=== PATIENT | male | born 1965 | race Caucasian/White ===

== ENCOUNTER 2016-03-22 10:46 | Emergency (ER) | payer MEDICAID, SELFPAY ==
[~2016-03-22 10:46] MED LIST: ALLO300T OR; AMBI12.52 PO; AMLO5TAB2 PO; CATA0.2T PO; CHLO25CA PO; CIPR250T3; CIPR500T3 PO; CIPR500T4 OR; COLA100C PO; FLAG500T OR; FLAG500T PO; FLUO20CA9 PO; FOLI1TAB2 PO; IBUP200T2 PO; LISI-538 PO; LISI-542 PO; LISI10TA4 PO; LOPR1TAB6 PO; METRCRM TOP; MULTCAP PO; OXAZ10CA PO; PANT40TA2 PO; PERCOCET PO; POTA20TA OR; SERT-138 PO; SERT-141 PO; SM I100T OR; THIA100TA PO; TRAZO50TA PO; VICO5TAB; VICO5TAB OR; VITA100T2 PO; VITMTA PO
[2016-03-22] MEDS ORDERED: LORazepam 2 MG/ML VIAL (J2060) As Ordered ONE (11:21)
[2016-03-22 11:37] LABS: BASO % 0.7 % (0.0-1.0); EOS # 0.1 K/mm3 (0.0-0.50); EOS % 2.3 % (0.0-3.0); LARGE UNSTAINED CELL # 0.2 K/mm3 (0.0-0.4); LARGE UNSTAINED CELL % 2.6 % (0.0-4.0); LYMPH # 1.6 K/mm3 (1.5-4.5); LYMPH % 25.7 % (24.0-44.0); MEAN CORPUSCULAR HEMOGLOBIN 28.7 pg (27.0-33.0); MEAN CORPUSCULAR HGB CONC 33.4 g/dl (32.0-36.5); MEAN CORPUSCULAR VOLUME 86.2 fl (80.0-96.0); MONO # 0.4 K/mm3 (0.0-0.8); MONO % 7.1 % (0.0-5.0); NEUTROPHILS # 3.6 K/mm3 (1.8-7.7); NEUTROPHILS % 61.7 % (36.0-66.0); PLATELET COUNT, AUTOMATED 219 k/mm3 (150-450); RED CELL DISTRIBUTION WIDTH 13.3 % (11.5-14.5); WHITE BLOOD COUNT 5.8 K/mm3 (4.0-10.0)
[2016-03-22 11:54] LABS: ALBUMIN 3.7 GM/DL (3.2-5.2); ALBUMIN/GLOBULIN RATIO 0.93 (1.00-1.93); ALKALINE PHOSPHATASE 72 U/L (45-117); ALT/SGPT 33 U/L (12-78); ANION GAP 9 MEQ/L (8-16); AST/SGOT 22 U/L (15-37); BILIRUBIN,DIRECT < 0.1 MG/DL (0.0-0.2); BILIRUBIN,TOTAL 0.3 MG/DL (0.2-1.0); BLOOD UREA NITROGEN 13 MG/DL (7-18); CALCIUM LEVEL 8.3 MG/DL (8.5-10.1); CARBON DIOXIDE LEVEL 26 MEQ/L (21-32); CHLORIDE LEVEL 107 MEQ/L (98-107); CREATININE FOR GFR 0.68 MG/DL (0.70-1.30); GLOMERULAR FILTRATION RATE > 60.0 (>56); GLUCOSE, FASTING 101 MG/DL (70-105); POTASSIUM SERUM 3.8 MEQ/L (3.5-5.1); SODIUM LEVEL 142 MEQ/L (136-145); TOTAL PROTEIN 7.7 GM/DL (6.4-8.2)
--- NOTE | 2016-03-22 14:04 | EDDOCDS ---
Nurse's Notes [facility] Name: Efraín Butler Age: 50 yrs Sex: Male : 1965 Arrival Date: 03/22/2016 Time: 10:46 Bed 5 Private MD: Jeffrey Martin A. Diagnosis: Alcohol abuse counseling and surveillance;Alcohol abuse with intoxication Presentation: 03/22 10:53 Presenting complaint: Patient states: stressful day yesterday, confusion while at work jjr earlier today, found house phone in coat pocket while signing in to ED. Adult Sepsis Screening: The patient does not have new or worsening altered mentation. Patient's respiratory rate is less than 22. Systolic blood pressure is greater than 100. Patient has a qSOFA score of 0- Negative Sepsis Screen. Suicide/Homicide risk assessment- the patient denies having any suicidal and/or homicidal ideations and does not present with any other emotional, behavioral or mental health complaints. Status: Patient is not a student services dean or dependent. Transition of care: patient was not received from another setting of care. 10:53 Acuity: GABO Level 3 jjr 10:53 Method Of Arrival: Walkin/Carried/Asstd jjr Triage Assessment: 11:02 General: Appears in no apparent distress. HIV screening NA for this visit Offered jjr previously. Neurological: Reports no additional symptoms. Historical: - Allergies: no known allergies; - Home Meds: 1. lisinopril 20 mg Oral tab 1 tab once daily (Last dose: 03/22/2016) 2. Norvasc 5 mg Oral tab 1 tab once daily - PMHx: Hypertension; Kidney stones; Diverticulitis; Depression; TIA; - PSHx: Knee surgery- Left; Knee surgery- Right; kidney stent; skin tumors in ears; - Social history: No barriers to communication noted, The patient speaks fluent Lao, Smoking status: Patient states was never smoker of tobacco. - Family history: Not pertinent. - : The pt / caregiver states he / she is not on anticoagulants. Home medication list is obtained from the patient. - Exposure Risk Screening:: None identified. Screenin:41 Screening information is obtained from the patient. Fall risk: No risks identified. dls Assistance ADL's: requires no assistance with activities of daily living. Abuse/DV Screen: The patient / caregiver reports he/she is: not in a situation that causes fear, pain or injury. Nutritional screening: No deficits noted. Advance Directives: Currently, there is no health care proxy. There is no active DNR order. There is no living will. There is no Power of Compression Molding Machine Operator. Advance directive information has not previously been placed in an [facility] medical record. home support is adequate. Assessment: 11:39 General: Appears distressed, obese, uncomfortable, well nourished, well groomed, dls Behavior is anxious, Smells of alcohol. Pain: Denies pain. Neurological: Level of Consciousness is awake, alert, Oriented to person, place, time, Refining Still Operator are equal bilaterally Moves all extremities. Speech is normal, Facial symmetry appears normal, Pupils are PERRLA, EENT: No deficits noted. Cardiovascular: No deficits noted. Respiratory: No deficits noted. Airway is patent Respiratory effort is even, unlabored, Respiratory pattern is regular, symmetrical, Breath sounds are clear bilaterally. GI: No deficits noted. Abdomen is obese, Bowel sounds present X 4 quads. Abd is soft and non tender X 4 quads. Reports nausea. : No deficits noted. Derm: No deficits noted. Musculoskeletal: No deficits noted. 11:43 General: After IV insertion pt became nauseated no emesis states"room is spinning" pt dls to CT scan via stretcher accompanied by nurse pt remains alert and oriented medicated pt IV for anxiety pts states "pt has hx of ETOH withdrawal.. 12:48 General: Pt sleeping off and on vital signs remain stable awaiting test results.. dls 12:59 General: dope maintenance worker in to speak with pt.. dls Social Work Consult: 13:41 Social Work Note: PSA met with pt at bedside. Pt reports he started to drink 2 days ago cs after 90 days of sobriety, he was lonely, was suppose to work yesterday at [employer], but his friend Federica refused to drive him to work, because of his drinking. Pt reports he stopped drinking yesterday morning, yet his etoh was .11 at 11:08 am. Pt reports he has 39 years of drinking, 6 DWI, went to halfway, lost his family, many jobs, many friends, and a to etoh issues. Pt reports he has been working with a [employer] on [employer] in [place], no sponsor. Pt has no history on psyche admissions, or attempts to kill self, sees a counselor at [facility], has missed the past 2 appointments due to work, and transportation is an issue, per pt. Pt also reports no suicidal thoughts, or wishes to kill anyone, no +AH, just feels bad he started to drink again. referrals given and surveillance managercosmetic manager with phone numbers for him to call in am on Wednesday. Pt and friend Federica will be transported back to his home. Support extended. Vital Signs: 10:47 BP 171 / 94; Pulse 82; Resp 19; Temp 98.5(O); Pulse Ox 96% on R/A; Weight 99.79 kg (R); elp Height 5 ft. 9 in. (175.26 cm) (R); 11:18 BP 150 / 84 (auto/); dls 11:19 Pulse 82 MON; Pulse Ox 92% ; dls 11:19 BP 159 / 102; Pulse 93; Resp 20; Temp 97.4(O); Pulse Ox 96% on R/A; Pain 0/10; dls 10:47 Body Mass Index 32.49 (99.79 kg, 175.26 cm) [facility] Vitals: 10:47 Log In Time: March 22, 2016 at 10:45. elp 10:48 RN notified that patient meets Red Flag criteria. [facility] ED Course: 10:47 Patient visited by Aida Fritz PCA. elp 10:47 Jeffrey Martin is Private Physician. elp 10:47 Patient moved to Waiting elp 10:49 Key Villafana, RN is Primary Nurse. elp 10:49 Patient moved to 5 elp 10:51 Nevaeh Vizcaino MD is Attending Physician. ml 10:51 Patient visited by Nevaeh Vizcaino MD. ml 10:55 Triage Initiated jjr 11:12 CBC with Diff Sent. dls 11:12 Partial Thromboplastin Time Sent. dls 11:13 Prothrombin Time Profile\\E\\INR Sent. dls 11:13 Type & Screen Sent. dls 11:13 Acetaminophen Level Sent. dls 11:13 Basic Metabolic Profile Sent. dls 11:13 Complete Blood Count Sent. dls 11:13 Ethyl Alcohol (ethanol) Sent. dls 11:13 Liver Profile Sent. dls 11:14 Salicylate Level Sent. dls 11:14 Thyroid Stimulating Hormone Sent. dls 11:30 Patient visited by Yohan Hubbard PCA. jrd 11:30 EKG done. (by ED staff). Reviewed by Nevaeh Vizcaino MD. jrd 11:41 The patient / caregiver is instructed regarding the plan of care and ED course. dls Accompanied by Significant Other, Patient has correct armband on for positive identification. Placed in gown. Bed in low position. Call light in reach. Side rails up X2. surveillance monitor on. Pulse ox on. NIBP on. 11:41 Inserted saline lock: 20 gauge in left hand and blood collected. The patient tolerated dls the procedure well. No procedures done that require assistance. 11:50 [facility] Payment Agreement was scanned into [employer] and attached to record. mpb 12:47 Patient visited by Key Villafana RN. dls 13:50 Jeffrey Martin is Referral Physician. ml 13:57 PSA Outpatient Referrals was scanned into [employer] and attached to record. ml4 14:02 Discontinued IV lock intact, bleeding controlled, pressure dressing applied, No dls redness/swelling at site. Administered Medications: 11:18 Drug: NS 0.9% 1000 ml [sodium chloride 0.9 % intravenous solution] Route: IV; Rate: dls bolus; Site: left hand; 11:25 Drug: LORazepam 1 mg [lorazepam 2 mg/mL injection solution (0.5 mL)] Route: IVP; Site: dls left hand; Order Results: Lab Order: Acetaminophen Level; SPEC'M 03/22/16 11:08 Test: ACETAMINOPHEN LEVEL; Value: < 2.0; Range: 10.0-30.0; Abnormal: Below low normal; Units: UG/ML; Status: F Lab Order: Basic Metabolic Profile; SPEC'M 03/22/16 11:08 Test: GLUCOSE, FASTING; Value: 101; Range: 70-105; Units: MG/DL; Status: F Test: BLOOD UREA NITROGEN; Value: 13; Range: 7-18; Units: MG/DL; Status: F Test: CREATININE FOR GFR; Value: 0.68; Range: 0.70-1.30; Abnormal: Below low normal; Units: MG/DL; Status: F Test: GLOMERULAR FILTRATION RATE; Value: > 60.0; Range: >56; Status: F Test: SODIUM LEVEL; Value: 142; Range: 136-145; Units: MEQ/L; Status: F Test: POTASSIUM SERUM; Value: 3.8; Range: 3.5-5.1; Units: MEQ/L; Status: F Test: CHLORIDE LEVEL; Value: 107; Range: 98-107; Units: MEQ/L; Status: F Test: CARBON DIOXIDE LEVEL; Value: 26; Range: 21-32; Units: MEQ/L; Status: F Test: ANION GAP; Value: 9; Range: 8-16; Units: MEQ/L; Status: F Test: CALCIUM LEVEL; Value: 8.3; Range: 8.5-10.1; Abnormal: Below low normal; Units: MG/DL; Status: F Test Note: ; Units are mL/min/1.73 m2 Chronic Kidney Disease Staging per NKF: Stage I & II GFR >=60 Normal to Mildly Decreased Stage III GFR 30-59 Moderately Decreased Stage IV GFR 15-29 Severely Decreased Stage V GFR <15 Very Little GFR Left ESRD GFR <15 on STONEMASON SUPERVISOR Lab Order: Ethyl Alcohol (ethanol); SPEC'M 03/22/16 11:08 Test: ETHYL ALCOHOL (ETHANOL); Value: 0.111; Range: 0.000-0.010; Abnormal: Above high normal; Units: %; Status: F Lab Order: Liver Profile; SPECM 03/22/16 11:08 Test: AST/SGOT; Value: 22; Range: 15-37; Units: U/L; Status: F Test: ALT/SGPT; Value: 33; Range: 12-78; Units: U/L; Status: F Test: ALKALINE PHOSPHATASE; Value: 72; Range: 45-117; Units: U/L; Status: F Test: BILIRUBIN,TOTAL; Value: 0.3; Range: 0.2-1.0; Units: MG/DL; Status: F Test: BILIRUBIN,DIRECT; Value: < 0.1; Range: 0.0-0.2; Units: MG/DL; Status: F Test: TOTAL PROTEIN; Value: 7.7; Range: 6.4-8.2; Units: GM/DL; Status: F Test: ALBUMIN; Value: 3.7; Range: 3.2-5.2; Units: GM/DL; Status: F Test: ALBUMIN/GLOBULIN RATIO; Value: 0.93; Range: 1.00-1.93; Abnormal: Below low normal; Status: F Lab Order: Salicylate Level; SPEC03/22/16 11:08 Test: SALICYLATE LEVEL; Value: < 1.7; Range: 5.0-30.0; Abnormal: Below low normal; Units: MG/DL; Status: F Lab Order: Thyroid Stimulating Hormone; 03/22/16 11:08 Test: THYROID STIMULATING HORMONE; Value: 1.370; Range: 0.358-3.740; Units: uIU/ML; Status: F Lab Order: CBC with Diff; 03/22/16 11:08 Test: WHITE BLOOD COUNT; Value: 5.8; Range: 4.0-10.0; Units: K/mm3; Status: F Test: RED BLOOD COUNT; Value: 4.87; Range: 4.30-6.10; Units: M/mm3; Status: F Test: HEMOGLOBIN; Value: 14.0; Range: 14.0-18.0; Units: g/dl; Status: F Test: HEMATOCRIT; Value: 42.0; Range: 42.0-52.0; Units: %; Status: F Test: MEAN CORPUSCULAR VOLUME; Value: 86.2; Range: 80.0-96.0; Units: fl; Status: F Test: MEAN CORPUSCULAR HEMOGLOBIN; Value: 28.7; Range: 27.0-33.0; Units: pg; Status: F Test: MEAN CORPUSCULAR HGB CONC; Value: 33.4; Range: 32.0-36.5; Units: g/dl; Status: F Test: RED CELL DISTRIBUTION WIDTH; Value: 13.3; Range: 11.5-14.5; Units: %; Status: F Test: PLATELET COUNT, AUTOMATED; Value: 219; Range: 150-450; Units: k/mm3; Status: F Test: NEUTROPHILS %; Value: 61.7; Range: 36.0-66.0; Units: %; Status: F Test: LYMPH %; Value: 25.7; Range: 24.0-44.0; Units: %; Status: F Test: MONO %; Value: 7.1; Range: 0.0-5.0; Abnormal: Above high normal; Units: %; Status: F Test: EOS %; Value: 2.3; Range: 0.0-3.0; Units: %; Status: F Test: BASO %; Value: 0.7; Range: 0.0-1.0; Units: %; Status: F Test: LARGE UNSTAINED CELL %; Value: 2.6; Range: 0.0-4.0; Units: %; Status: F Test: NEUTROPHILS #; Value: 3.6; Range: 1.8-7.7; Units: K/mm3; Status: F Test: LYMPH #; Value: 1.6; Range: 1.5-4.5; Units: K/mm3; Status: F Test: MONO #; Value: 0.4; Range: 0.0-0.8; Units: K/mm3; Status: F Test: EOS #; Value: 0.1; Range: 0.0-0.50; Units: K/mm3; Status: F Test: BASO #; Value: 0.0; Range: 0.0-0.2; Units: K/mm3; Status: F Test: LARGE UNSTAINED CELL #; Value: 0.2; Range: 0.0-0.4; Units: K/mm3; Status: F Lab Order: Partial Thromboplastin Time; SPEC'M 03/22/16 11:08 Test: PARTIAL THROMBOPLASTIN TIME; Value: 25.7; Range: 26.6-37.1; Abnormal: Below low normal; Units: SECONDS; Status: F Lab Order: Prothrombin Time Profile\\E\\INR; SPEC'M 03/22/16 11:08 Test: PROTHROMBIN TIME; Value: 13.3; Range: 12.3-14.5; Units: SECONDS; Status: F Test: INR; Value: 1.00; Status: F Test Note: ; THERAPUTIC HUMAN INR VALUES INDICATIONS NORMAL RANGES PROPHYLAXIS/TREATMENT OF: VENOUS THROMBOSIS 2.0-3.0 PULMONARY EMBOLISM 2.0-3.0 PREVENTION OF SYSTEMIC EMBOLISM FROM: TISSUE HEART VALVES 2.0-3.0 ACUTE MYOCARDIAL INFARCTION 2.0-3.0 VALVULAR HEART DISEASE 2.0-3.0 ATRIAL FIBRILLATION 2.0-3.0 MECHANICAL VALVES(HIGH RISK) 2.5-3.5 RECURRENT MYOCARDIAL INFARCTION 2.5-3.5 Lab Order: Type & Screen; SPEC'M 03/22/16 11:08 Test: BLOOD TYPE; Value: A POS; Status: F Test: AB SCREEN (INDIRECT JEREMY)VIS; Value: NEGATIVE; Status: F Lab Order: Fingerstick Blood Sugar; SPEC'M 03/22/16 11:51 Test: BEDSIDE GLUCOSE; Value: 100; Range: 70-105; Units: MG/DL; Status: F Outcome: 13:50 Discharge ordered by Provider. 14:02 Discharge Assessment: Patient awake, alert and oriented x 3. No cognitive and/or dls functional deficits noted. Patient verbalized understanding of disposition instructions. patient administered narcotics - no. The following High Risk Discharge criteria are identified: None. Discharged to home ambulatory. Condition: stable Condition: improved. Discharge instructions given to patient, Instructed on discharge instructions, follow up and referral plans. Demonstrated understanding of instructions, Pt was receptive of discharge instructions/ teaching. CT Study completed. Property sent home with patient. 14:03 Patient left the ED. dls Signatures: Nevaeh Vizcaino MD MD ml Scott, Debra, RN RN dls Lai Mao, PSA PSA cs Francia Perdomo, PSA PSA ml4 Eli Sosa, RN RN Aida Smith, MICROBIOLOGY TEACHER MICROBIOLOGY TEACHER Yohan Otto, MICROBIOLOGY TEACHER MICROBIOLOGY TEACHER Efraín Tijerina, Reg Reg mpb MARYJO
--- NOTE | 2016-03-22 14:04 | EDDOCDS ---
Physician Documentation [facility] Name: Efraín Butler Age: 50 yrs Sex: Male : 1965 Arrival Date: 03/22/2016 Time: 10:46 Bed 5 Private MD: Jeffrey Martin A. Disposition: 03/22/16 13:50 Discharged to Home/Self Care. Impression: Alcohol abuse counseling and surveillance, Alcohol abuse with intoxication. - Condition is Stable. - Discharge Instructions: Alcohol Intoxication, Alcohol Abuse and Nutrition. - Medication Reconciliation, Local Pharmacy Hours form. - Follow up: Jeffrey Martin; When: 1 - 2 days. - Problem is an ongoing problem. - Symptoms have improved. - Notes: return if worsening symptoms. follow steps discussed with Lai. Follow up with Dr Martin Historical: - Allergies: no known allergies; - Home Meds: 1. lisinopril 20 mg Oral tab 1 tab once daily (Last dose: 03/22/2016) 2. Norvasc 5 mg Oral tab 1 tab once daily - PMHx: Hypertension; Kidney stones; Diverticulitis; Depression; TIA; - PSHx: Knee surgery- Left; Knee surgery- Right; kidney stent; skin tumors in ears; - Social history: No barriers to communication noted, The patient speaks fluent Trinidadian, Smoking status: Patient states was never smoker of tobacco. - Family history: Not pertinent. - : The pt / caregiver states he / she is not on anticoagulants. Home medication list is obtained from the patient. - Exposure Risk Screening:: None identified. Vital Signs: 03/22 10:47 BP 171 / 94; Pulse 82; Resp 19; Temp 98.5(O); Pulse Ox 96% on R/A; Weight 99.79 kg / elp 220 lbs (R); Height 5 ft. 9 in. (175.26 cm) (R); 11:18 BP 150 / 84 (auto/); dls 11:19 Pulse 82 MON; Pulse Ox 92% ; dls 11:19 BP 159 / 102; Pulse 93; Resp 20; Temp 97.4(O); Pulse Ox 96% on R/A; Pain 0/10; dls 10:47 Body Mass Index 32.49 (99.79 kg, 175.26 cm) elp MDM: 11:00 Consult PFS/PSA/Cigar Packer And Grader ordered. ml 11:00 Consult PFS/PSA/Cigar Packer And Grader: Patient's case requires discussion with on-call ml Psychiatrist ordered. 11:00 PSA/PFS to call Nursing Fire Operations Forester, to enter patient data on [place] Safe Act if patient ml involuntarily admitted or transferred for SI or HI ordered. 11:00 Video Control Operator/Pulse Ox/q 15 min VS ordered. ml 11:00 Confirm accurate psychiatric medication list and times of last dosage ordered. ml 11:00 Detain Pt Until Medically/PFS Cleared ordered. ml 11:00 IV Saline Lock ordered. ml 11:00 NS 0.9% 1000 ml IV at bolus once ordered. ml 11:00 LORazepam 1 mg IVP once ordered. ml 11:00 RN interventions must not delay CT ordered. ml 11:00 Accucheck ordered. ml 11:00 Rhythm Strip to chart ordered. ml 11:00 Stroke assessment pack to bedside ordered. ml 11:01 Acetaminophen Level Ordered. EDMS 11:01 Basic Metabolic Profile Ordered. EDMS 11:01 Complete Blood Count Ordered. EDMS 11:01 Ethyl Alcohol (ethanol) Ordered. EDMS 11:01 Liver Profile Ordered. EDMS 11:01 Salicylate Level Ordered. EDMS 11:01 Thyroid Stimulating Hormone Ordered. EDMS 11:01 CBC with Diff Ordered. EDMS 11:01 Partial Thromboplastin Time Ordered. EDMS 11:01 Prothrombin Time Profile\E\INR Ordered. EDMS 11:01 Type & Screen Ordered. EDMS 11:02 CT Head Without Contrast Ordered. EDMS 11:03 Chest, 1 View Ordered. EDMS 11:03 ECG WITH READING ER PHYS+CARDIAG ordered. EDMS 11:42 Financial registration complete. mpb 11:50 [facility] Payment Agreement was scanned into [employer] and attached to record. mpb 11:59 Fingerstick Blood Sugar Ordered. EDMS 12:07 Acetaminophen Level Reviewed. ml 12:07 Basic Metabolic Profile Reviewed. ml 12:07 Ethyl Alcohol (ethanol) Reviewed. ml 12:07 Liver Profile Reviewed. ml 12:07 Salicylate Level Reviewed. ml 12:07 CBC with Diff Reviewed. ml 12:07 Partial Thromboplastin Time Reviewed. ml 12:07 Thyroid Stimulating Hormone Reviewed. ml 12:07 Prothrombin Time Profile\E\INR Reviewed. ml 12:07 Fingerstick Blood Sugar Reviewed. ml 12:40 Type & Screen Reviewed. ml 12:41 Consult PFS/PSA/Cigar Packer And Grader ordered. ml 12:58 Consult PFS/PSA/Cigar Packer And Grader complete. dls 12:59 Consult PFS/PSA/Cigar Packer And Grader complete. dls 12:59 Consult PFS/PSA/Cigar Packer And Grader: Patient's case requires discussion with on-call dls Psychiatrist complete. 12:59 PSA/PFS to call Nursing Fire Operations Forester, to enter patient data [place] Safe [place] if patient dls involuntarily admitted or transferred for SI or HI complete. 13:57 PSA Outpatient Referrals was scanned into [employer] and attached to record. ml4 Administered Medications: 11:18 Drug: NS 0.9% 1000 ml [sodium chloride 0.9 % intravenous solution] Route: IV; Rate: dls bolus; Site: left hand; 11:25 Drug: LORazepam 1 mg [lorazepam 2 mg/mL injection solution (0.5 mL)] Route: IVP; Site: dls left hand; Signatures: Dispatcher [employer] Nevaeh Shane MD MD ml Key Villafana RN RN dls Francia Perdomo, PSA PSA ml4 Eli Sosa, RN RN jacquir Efraín Boateng, Anuel Reg mpb The chart was reviewed and I authenticate all verbal orders and agree with the evaluation and treatment provided.Corrections: (The following items were deleted from the chart) 11:01 11:00 Consult [facility]: Telemedicine Stroke Attending ordered. ml ml 12:00 11:00 Neuro VS q 15 Minutes ordered. ml dls 12:00 11:00 Patient must be on CC stretcher and weighed via bed scale ordered. ml dls 12:45 11:01 DRUG EVAL TOXICOLOGY ED ONLY+LAB ordered. EDMS EDMS Attachments: 11:50 [facility] Payment Agreement mpb MTDD
--- NOTE | 2016-03-22 14:56 | REP ---
CT BRAIN WITHOUT CONTRAST: 03/22/2016. Clinical history: Confusion, altered mental status. Comparison: 08/25/2015, 08/11/2013. Findings: Noncontrast soft tissue and bone windows reviewed. Ventricles are midline symmetric and without dilatation or displacement. Third and fourth ventricles unremarkable. Basal ganglia are symmetric and normal. López white junction differentiation is well maintained. Cortical stripe is preserved. There is no vascular territory infarct, hemorrhage, mass, mass effect or edema. Brainstem and cerebellum remain grossly intact. The basal cisterns were intact. Mastoids show minimal aeration bilaterally on a developmental basis but were clear. The visualized sinuses, skull base and calvarium were unremarkable. Impression: 1. Normal noncontrast CT brain. No intracranial hemorrhage, acute infarct, mass or edema. 2. Skull base, calvarium, sinuses and mastoids clear. Signed by Aren Paul MD 03/22/2016 07:28 P
--- NOTE | 2016-03-22 14:57 | REP ---
AP PORTABLE CHEST: 03/22/2016. Clinical history: Confusion, altered mental status. Comparison: 08/25/2015, 08/11/2013. Findings: Lordotic AP portable technique. There is eventration and elevation of the right diaphragm exaggerated by the lordotic projection. Heart size mildly prominent and with left ventricular configuration also exaggerated by lordotic portable projection. No gross infiltrate or effusion. Some mild venous hypertension may be present but there is no pulmonary edema or acute infiltrate. The aorta is mildly tortuous but normal for age. Airway intact. Bones unchanged. No free air. Impression: 1. Lordotic projection limits evaluation of the posterior and lower lung zones. Some pulmonary venous hypertension without pulmonary edema, dense consolidation or definite effusion. Signed by Aren Paul MD 03/22/2016 07:28 P
--- NOTE | 2016-03-22 19:33 | ECGEPIP ---
Stationary ECG Study [facility] - ED Test Date: 2016-03-22 Pat Name: NAMAN HARPER Department: Room: - Gender: M Security Compliance Engineer: rafael : 1965 Requested By: Nevaeh Vizcaino Order Number: [id number] Reading MD: Nevaeh Vizcaino Measurements Intervals [place] Rate: 83 P: 31 IL: 147 QRS: 16 QRSD: 89 T: 64 QT: 375 QTc: 442 Interpretive Statements SINUS RHYTHM POSSIBLE INFERIOR MYOCARDIAL INFARCTION, PROBABLY OLD NONSPECIFIC ST T WAVE CHANGES CW 12/25/15 - RATE INCREASED Electronically Signed On 03-22-2016 19:33:23 EST by Nevaeh Vizcaino
--- NOTE | 2016-03-24 15:05 | EDDOCDS ---
Physician Documentation [facility] Name: Efraín Butler Age: 50 yrs Sex: Male : 1965 Arrival Date: 03/22/2016 Time: 10:46 Bed 5 Private MD: Jeffrey Martin A. Disposition: 03/22/16 13:50 Discharged to Home/Self Care. Impression: Alcohol abuse counseling and surveillance, Alcohol abuse with intoxication. - Condition is Stable. - Discharge Instructions: Alcohol Intoxication, Alcohol Abuse and Nutrition. - Medication Reconciliation, Local Pharmacy Hours form. - Follow up: Jeffrey Martin; When: 1 - 2 days. - Problem is an ongoing problem. - Symptoms have improved. - Notes: return if worsening symptoms. follow steps discussed with Lai. Follow up with Dr Martin Historical: - Allergies: no known allergies; - Home Meds: 1. lisinopril 20 mg Oral tab 1 tab once daily (Last dose: 03/22/2016) 2. Norvasc 5 mg Oral tab 1 tab once daily - PMHx: Hypertension; Kidney stones; Diverticulitis; Depression; TIA; - PSHx: Knee surgery- Left; Knee surgery- Right; kidney stent; skin tumors in ears; - Social history: No barriers to communication noted, The patient speaks fluent Citizen Of [place], Smoking status: Patient states was never smoker of tobacco. - Family history: Not pertinent. - : The pt / caregiver states he / she is not on anticoagulants. Home medication list is obtained from the patient. - Exposure Risk Screening:: None identified. Vital Signs: 03/22 10:47 BP 171 / 94; Pulse 82; Resp 19; Temp 98.5(O); Pulse Ox 96% on R/A; Weight 99.79 kg / elp 220 lbs (R); Height 5 ft. 9 in. (175.26 cm) (R); 11:18 BP 150 / 84 (auto/); dls 11:19 Pulse 82 MON; Pulse Ox 92% ; dls 11:19 BP 159 / 102; Pulse 93; Resp 20; Temp 97.4(O); Pulse Ox 96% on R/A; Pain 0/10; dls 10:47 Body Mass Index 32.49 (99.79 kg, 175.26 cm) elp MDM: 11:00 Consult PFS/PSA/Senior Clinical Data Coordinator ordered. ml 11:00 Consult PFS/PSA/Senior Clinical Data Coordinator: Patient's case requires discussion with on-call ml Psychiatrist ordered. 11:00 PSA/PFS to call Nursing Plug Making Operator, to enter patient data on [place] Safe [place] if patient ml involuntarily admitted or transferred for SI or HI ordered. 11:00 Clinic Licensed Practical Nurse/Pulse Ox/q 15 min VS ordered. ml 11:00 Confirm accurate psychiatric medication list and times of last dosage ordered. ml 11:00 Detain Pt Until Medically/PFS Cleared ordered. ml 11:00 IV Saline Lock ordered. ml 11:00 NS 0.9% 1000 ml IV at bolus once ordered. ml 11:00 LORazepam 1 mg IVP once ordered. ml 11:00 RN interventions must not delay CT ordered. ml 11:00 Accucheck ordered. ml 11:00 Rhythm Strip to chart ordered. ml 11:00 Stroke assessment pack to bedside ordered. ml 11:01 Acetaminophen Level Ordered. EDMS 11:01 Basic Metabolic Profile Ordered. EDMS 11:01 Complete Blood Count Ordered. EDMS 11:01 Ethyl Alcohol (ethanol) Ordered. EDMS 11:01 Liver Profile Ordered. EDMS 11:01 Salicylate Level Ordered. EDMS 11:01 Thyroid Stimulating Hormone Ordered. EDMS 11:01 CBC with Diff Ordered. EDMS 11:01 Partial Thromboplastin Time Ordered. EDMS 11:01 Prothrombin Time Profile\E\INR Ordered. EDMS 11:01 Type & Screen Ordered. EDMS 11:02 CT Head Without Contrast Ordered. EDMS 11:03 Chest, 1 View Ordered. EDMS 11:03 ECG WITH READING ER PHYS+CARDIAG ordered. EDMS 11:42 Financial registration complete. mpb 11:50 [facility] Payment Agreement was scanned into [employer] and attached to record. mpb 11:59 Fingerstick Blood Sugar Ordered. EDMS 12:07 Acetaminophen Level Reviewed. ml 12:07 Basic Metabolic Profile Reviewed. ml 12:07 Ethyl Alcohol (ethanol) Reviewed. ml 12:07 Liver Profile Reviewed. ml 12:07 Salicylate Level Reviewed. ml 12:07 CBC with Diff Reviewed. ml 12:07 Partial Thromboplastin Time Reviewed. ml 12:07 Thyroid Stimulating Hormone Reviewed. ml 12:07 Prothrombin Time Profile\E\INR Reviewed. ml 12:07 Fingerstick Blood Sugar Reviewed. ml 12:40 Type & Screen Reviewed. ml 12:41 Consult PFS/PSA/Senior Clinical Data Coordinator ordered. ml 12:58 Consult PFS/PSA/Senior Clinical Data Coordinator complete. dls 12:59 Consult PFS/PSA/Senior Clinical Data Coordinator complete. dls 12:59 Consult PFS/PSA/Senior Clinical Data Coordinator: Patient's case requires discussion with on-call dls Psychiatrist complete. 12:59 PSA/PFS to call Nursing Plug Making Operator, to enter patient data [place] Safe [place] if patient dls involuntarily admitted or transferred for SI or HI complete. 13:57 PSA Outpatient Referrals was scanned into [employer] and attached to record. ml4 18:28 T-Sheet-- Draft Copy was scanned into [employer] and attached to record. r 03/23 11:05 ECG/EKG was scanned into [employer] and attached to record. gb 11:06 Other: STROKE SCALE was scanned into [employer] and attached to record. gb Administered Medications: 03/22 11:18 Drug: NS 0.9% 1000 ml [sodium chloride 0.9 % intravenous solution] Route: IV; Rate: dls bolus; Site: left hand; 11:25 Drug: LORazepam 1 mg [lorazepam 2 mg/mL injection solution (0.5 mL)] Route: IVP; Site: dls left hand; Signatures: Dispatcher [employer] EDUT Nevaeh Vizcaino MD MD ml Scott, Debra RN RN dls Amy Montes, Reg Reg gb Francia Perdomo, PSA PSA ml4 Eli Sosa RN RN jjr Briggs, Michael, Reg Reg mpb Nuha Vera The chart was reviewed and I authenticate all verbal orders and agree with the evaluation and treatment provided.Corrections: (The following items were deleted from the chart) 11:01 11:[address] [facility]: Telemedicine Stroke Attending ordered. ml ml 12:00 11:00 Neuro VS q 15 Minutes ordered. ml dls 12:00 11:00 Patient must be on CC stretcher and weighed via bed scale ordered. ml dls 12:45 11:01 DRUG EVAL TOXICOLOGY ED ONLY+LAB ordered. EDMS EDMS Attachments: 11:50 [facility] Payment Agreement mpb 18:28 T-Sheet-- Draft Copy [facility] 03/23 11:05 ECG/EKG gb Chart Complete MTDD
--- NOTE | 2016-03-24 15:05 | EDDOCDS ---
Nurse's Notes [facility] Name: Efraín Butler Age: 50 yrs Sex: Male : 1965 Arrival Date: 03/22/2016 Time: 10:46 Bed 5 Private MD: Jeffrey Martin A. Diagnosis: Alcohol abuse counseling and surveillance;Alcohol abuse with intoxication Presentation: 03/22 10:53 Presenting complaint: Patient states: stressful day yesterday, confusion while at work jjr earlier today, found house phone in coat pocket while signing in to ED. Adult Sepsis Screening: The patient does not have new or worsening altered mentation. Patient's respiratory rate is less than 22. Systolic blood pressure is greater than 100. Patient has a qSOFA score of 0- Negative Sepsis Screen. Suicide/Homicide risk assessment- the patient denies having any suicidal and/or homicidal ideations and does not present with any other emotional, behavioral or mental health complaints. Status: Patient is not a social service coordinator or dependent. Transition of care: patient was not received from another setting of care. 10:53 Acuity: GABO Level 3 jjr 10:53 Method Of Arrival: Walkin/Carried/Asstd jjr Triage Assessment: 11:02 General: Appears in no apparent distress. HIV screening NA for this visit Offered jjr previously. Neurological: Reports no additional symptoms. Historical: - Allergies: no known allergies; - Home Meds: 1. lisinopril 20 mg Oral tab 1 tab once daily (Last dose: 03/22/2016) 2. Norvasc 5 mg Oral tab 1 tab once daily - PMHx: Hypertension; Kidney stones; Diverticulitis; Depression; TIA; - PSHx: Knee surgery- Left; Knee surgery- Right; kidney stent; skin tumors in ears; - Social history: No barriers to communication noted, The patient speaks fluent Urdu, Smoking status: Patient states was never smoker of tobacco. - Family history: Not pertinent. - : The pt / caregiver states he / she is not on anticoagulants. Home medication list is obtained from the patient. - Exposure Risk Screening:: None identified. Screenin:41 Screening information is obtained from the patient. Fall risk: No risks identified. dls Assistance ADL's: requires no assistance with activities of daily living. Abuse/DV Screen: The patient / caregiver reports he/she is: not in a situation that causes fear, pain or injury. Nutritional screening: No deficits noted. Advance Directives: Currently, there is no health care proxy. There is no active DNR order. There is no living will. There is no Power of Technology Manager. Advance directive information has not previously been placed in an [facility] medical record. home support is adequate. Assessment: 11:39 General: Appears distressed, obese, uncomfortable, well nourished, well groomed, dls Behavior is anxious, Smells of alcohol. Pain: Denies pain. Neurological: Level of Consciousness is awake, alert, Oriented to person, place, time, Doctor Of Naturopathic Medicine are equal bilaterally Moves all extremities. Speech is normal, Facial symmetry appears normal, Pupils are PERRLA, EENT: No deficits noted. Cardiovascular: No deficits noted. Respiratory: No deficits noted. Airway is patent Respiratory effort is even, unlabored, Respiratory pattern is regular, symmetrical, Breath sounds are clear bilaterally. GI: No deficits noted. Abdomen is obese, Bowel sounds present X 4 quads. Abd is soft and non tender X 4 quads. Reports nausea. : No deficits noted. Derm: No deficits noted. Musculoskeletal: No deficits noted. 11:43 General: After IV insertion pt became nauseated no emesis states"room is spinning" pt dls to CT scan via stretcher accompanied by nurse pt remains alert and oriented medicated pt IV for anxiety pts states "pt has hx of ETOH withdrawal.. 12:48 General: Pt sleeping off and on vital signs remain stable awaiting test results.. dls 12:59 General: bog worker in to speak with pt.. dls Social Work Consult: 13:41 Social Work Note: PSA met with pt at bedside. Pt reports he started to drink 2 days ago cs after 90 days of sobriety, he was lonely, was suppose to work yesterday at [employer], but his friend Federica refused to drive him to work, because of his drinking. Pt reports he stopped drinking yesterday morning, yet his etoh was .11 at 11:08 am. Pt reports he has 39 years of drinking, 6 DWI, went to intermediate, lost his family, many jobs, many friends, and a to etoh issues. Pt reports he has been working with a [employer] on [employer] in [place], no sponsor. Pt has no history on psyche admissions, or attempts to kill self, sees a counselor at [facility], has missed the past 2 appointments due to work, and transportation is an issue, per pt. Pt also reports no suicidal thoughts, or wishes to kill anyone, no +AH, just feels bad he started to drink again. referrals given and metrology managerdesktop support manager with phone numbers for him to call in am on Wednesday. Pt and friend Federica will be transported back to his home. Support extended. Vital Signs: 10:47 BP 171 / 94; Pulse 82; Resp 19; Temp 98.5(O); Pulse Ox 96% on R/A; Weight 99.79 kg (R); elp Height 5 ft. 9 in. (175.26 cm) (R); 11:18 BP 150 / 84 (auto/); dls 11:19 Pulse 82 MON; Pulse Ox 92% ; dls 11:19 BP 159 / 102; Pulse 93; Resp 20; Temp 97.4(O); Pulse Ox 96% on R/A; Pain 0/10; dls 10:47 Body Mass Index 32.49 (99.79 kg, 175.26 cm) [facility] Vitals: 10:47 Log In Time: March 22, 2016 at 10:45. elp 10:48 RN notified that patient meets Red Flag criteria. [facility] ED Course: 10:47 Patient visited by Aida Fritz PCA. elp 10:47 Jeffrey Martin is Private Physician. elp 10:47 Patient moved to Waiting elp 10:49 Key Villafana, RN is Primary Nurse. elp 10:49 Patient moved to 5 elp 10:51 Nevaeh Vizcaino MD is Attending Physician. ml 10:51 Patient visited by Nevaeh Vizcaino MD. ml 10:55 Triage Initiated jjr 11:12 CBC with Diff Sent. dls 11:12 Partial Thromboplastin Time Sent. dls 11:13 Prothrombin Time Profile\\E\\INR Sent. dls 11:13 Type & Screen Sent. dls 11:13 Acetaminophen Level Sent. dls 11:13 Basic Metabolic Profile Sent. dls 11:13 Complete Blood Count Sent. dls 11:13 Ethyl Alcohol (ethanol) Sent. dls 11:13 Liver Profile Sent. dls 11:14 Salicylate Level Sent. dls 11:14 Thyroid Stimulating Hormone Sent. dls 11:30 Patient visited by Yohan Hubbard PCA. jrd 11:30 EKG done. (by ED staff). Reviewed by Nevaeh Vizcaino MD. jrd 11:41 The patient / caregiver is instructed regarding the plan of care and ED course. dls Accompanied by Significant Other, Patient has correct armband on for positive identification. Placed in gown. Bed in low position. Call light in reach. Side rails up X2. heddle machine operator on. Pulse ox on. NIBP on. 11:41 Inserted saline lock: 20 gauge in left hand and blood collected. The patient tolerated dls the procedure well. No procedures done that require assistance. 11:50 [facility] Payment Agreement was scanned into [employer] and attached to record. mpb 12:47 Patient visited by Key Villafana RN. dls 13:50 Jeffrey Martin is Referral Physician. ml 13:57 PSA Outpatient Referrals was scanned into [employer] and attached to record. ml4 14:02 Discontinued IV lock intact, bleeding controlled, pressure dressing applied, No dls redness/swelling at site. 15:07 CT Head Without Contrast Returned. EDMS 15:08 Chest, 1 View Returned. EDMS 18:28 T-Sheet-- Draft Copy was scanned into [employer] and attached to record. klr 19:34 ELECTROCARDIOGRAM ADULT Returned. EDMS 02 11:05 ECG/EKG was scanned into [employer] and attached to record. gb 11:06 Other: STROKE SCALE was scanned into [employer] and attached to record. gb Administered Medications: 03/22 11:18 Drug: NS 0.9% 1000 ml [sodium chloride 0.9 % intravenous solution] Route: IV; Rate: dls bolus; Site: left hand; 11:25 Drug: LORazepam 1 mg [lorazepam 2 mg/mL injection solution (0.5 mL)] Route: IVP; Site: dls left hand; Order Results: Lab Order: Acetaminophen Level; SPEC'M 03/22/16 11:08 Test: ACETAMINOPHEN LEVEL; Value: < 2.0; Range: 10.0-30.0; Abnormal: Below low normal; Units: UG/ML; Status: F Lab Order: Basic Metabolic Profile; SPEC'M 03/22/16 11:08 Test: GLUCOSE, FASTING; Value: 101; Range: 70-105; Units: MG/DL; Status: F Test: BLOOD UREA NITROGEN; Value: 13; Range: 7-18; Units: MG/DL; Status: F Test: CREATININE FOR GFR; Value: 0.68; Range: 0.70-1.30; Abnormal: Below low normal; Units: MG/DL; Status: F Test: GLOMERULAR FILTRATION RATE; Value: > 60.0; Range: >56; Status: F Test: SODIUM LEVEL; Value: 142; Range: 136-145; Units: MEQ/L; Status: F Test: POTASSIUM SERUM; Value: 3.8; Range: 3.5-5.1; Units: MEQ/L; Status: F Test: CHLORIDE LEVEL; Value: 107; Range: 98-107; Units: MEQ/L; Status: F Test: CARBON DIOXIDE LEVEL; Value: 26; Range: 21-32; Units: MEQ/L; Status: F Test: ANION GAP; Value: 9; Range: 8-16; Units: MEQ/L; Status: F Test: CALCIUM LEVEL; Value: 8.3; Range: 8.5-10.1; Abnormal: Below low normal; Units: MG/DL; Status: F Test Note: ; Units are mL/min/1.73 m2 Chronic Kidney Disease Staging per NKF: Stage I & II GFR >=60 Normal to Mildly Decreased Stage III GFR 30-59 Moderately Decreased Stage IV GFR 15-29 Severely Decreased Stage V GFR <15 Very Little GFR Left ESRD GFR <15 on BLOOD BANK LABORATORY TECHNICIAN Lab Order: Ethyl Alcohol (ethanol); SPEC'M 03/22/16 11:08 Test: ETHYL ALCOHOL (ETHANOL); Value: 0.111; Range: 0.000-0.010; Abnormal: Above high normal; Units: %; Status: F Lab Order: Liver Profile; SPEC'M 03/22/16 11:08 Test: AST/SGOT; Value: 22; Range: 15-37; Units: U/L; Status: F Test: ALT/SGPT; Value: 33; Range: 12-78; Units: U/L; Status: F Test: ALKALINE PHOSPHATASE; Value: 72; Range: 45-117; Units: U/L; Status: F Test: BILIRUBIN,TOTAL; Value: 0.3; Range: 0.2-1.0; Units: MG/DL; Status: F Test: BILIRUBIN,DIRECT; Value: < 0.1; Range: 0.0-0.2; Units: MG/DL; Status: F Test: TOTAL PROTEIN; Value: 7.7; Range: 6.4-8.2; Units: GM/DL; Status: F Test: ALBUMIN; Value: 3.7; Range: 3.2-5.2; Units: GM/DL; Status: F Test: ALBUMIN/GLOBULIN RATIO; Value: 0.93; Range: 1.00-1.93; Abnormal: Below low normal; Status: F Lab Order: Salicylate Level; SPEC' 03/22/16 11:08 Test: SALICYLATE LEVEL; Value: < 1.7; Range: 5.0-30.0; Abnormal: Below low normal; Units: MG/DL; Status: F Lab Order: Thyroid Stimulating Hormone; 03/22/16 11:08 Test: THYROID STIMULATING HORMONE; Value: 1.370; Range: 0.358-3.740; Units: uIU/ML; Status: F Lab Order: CBC with Diff; [facility]03/22/16 11:08 Test: WHITE BLOOD COUNT; Value: 5.8; Range: 4.0-10.0; Units: K/mm3; Status: F Test: RED BLOOD COUNT; Value: 4.87; Range: 4.30-6.10; Units: M/mm3; Status: F Test: HEMOGLOBIN; Value: 14.0; Range: 14.0-18.0; Units: g/dl; Status: F Test: HEMATOCRIT; Value: 42.0; Range: 42.0-52.0; Units: %; Status: F Test: MEAN CORPUSCULAR VOLUME; Value: 86.2; Range: 80.0-96.0; Units: fl; Status: F Test: MEAN CORPUSCULAR HEMOGLOBIN; Value: 28.7; Range: 27.0-33.0; Units: pg; Status: F Test: MEAN CORPUSCULAR HGB CONC; Value: 33.4; Range: 32.0-36.5; Units: g/dl; Status: F Test: RED CELL DISTRIBUTION WIDTH; Value: 13.3; Range: 11.5-14.5; Units: %; Status: F Test: PLATELET COUNT, AUTOMATED; Value: 219; Range: 150-450; Units: k/mm3; Status: F Test: NEUTROPHILS %; Value: 61.7; Range: 36.0-66.0; Units: %; Status: F Test: LYMPH %; Value: 25.7; Range: 24.0-44.0; Units: %; Status: F Test: MONO %; Value: 7.1; Range: 0.0-5.0; Abnormal: Above high normal; Units: %; Status: F Test: EOS %; Value: 2.3; Range: 0.0-3.0; Units: %; Status: F Test: BASO %; Value: 0.7; Range: 0.0-1.0; Units: %; Status: F Test: LARGE UNSTAINED CELL %; Value: 2.6; Range: 0.0-4.0; Units: %; Status: F Test: NEUTROPHILS #; Value: 3.6; Range: 1.8-7.7; Units: K/mm3; Status: F Test: LYMPH #; Value: 1.6; Range: 1.5-4.5; Units: K/mm3; Status: F Test: MONO #; Value: 0.4; Range: 0.0-0.8; Units: K/mm3; Status: F Test: EOS #; Value: 0.1; Range: 0.0-0.50; Units: K/mm3; Status: F Test: BASO #; Value: 0.0; Range: 0.0-0.2; Units: K/mm3; Status: F Test: LARGE UNSTAINED CELL #; Value: 0.2; Range: 0.0-0.4; Units: K/mm3; Status: F Lab Order: Partial Thromboplastin Time; SPEC'M 03/22/16 11:08 Test: PARTIAL THROMBOPLASTIN TIME; Value: 25.7; Range: 26.6-37.1; Abnormal: Below low normal; Units: SECONDS; Status: F Lab Order: Prothrombin Time Profile\\E\\INR; SPEC'M 03/22/16 11:08 Test: PROTHROMBIN TIME; Value: 13.3; Range: 12.3-14.5; Units: SECONDS; Status: F Test: INR; Value: 1.00; Status: F Test Note: ; THERAPUTIC HUMAN INR VALUES INDICATIONS NORMAL RANGES PROPHYLAXIS/TREATMENT OF: VENOUS THROMBOSIS 2.0-3.0 PULMONARY EMBOLISM 2.0-3.0 PREVENTION OF SYSTEMIC EMBOLISM FROM: TISSUE HEART VALVES 2.0-3.0 ACUTE MYOCARDIAL INFARCTION 2.0-3.0 VALVULAR HEART DISEASE 2.0-3.0 ATRIAL FIBRILLATION 2.0-3.0 MECHANICAL VALVES(HIGH RISK) 2.5-3.5 RECURRENT MYOCARDIAL INFARCTION 2.5-3.5 Lab Order: Type & Screen; SPEC'M 03/22/16 11:08 Test: BLOOD TYPE; Value: A POS; Status: F Test: AB SCREEN (INDIRECT JEREMY)VIS; Value: NEGATIVE; Status: F Lab Order: Fingerstick Blood Sugar; SPEC' 03/22/16 11:51 Test: BEDSIDE GLUCOSE; Value: 100; Range: 70-105; Units: MG/DL; Status: F Radiology Order: CT Head Without Contrast Test: CT Head Without Contrast REASON FOR EXAMINATION: confusion; CT BRAIN WITHOUT CONTRAST: 03/22/2016.; ; Clinical history: Confusion, altered mental status.; ; Comparison: 08/25/2015, 08/11/2013.; ; Findings: Noncontrast soft tissue and bone windows reviewed. Ventricles are; midline symmetric and without dilatation or displacement. Third and fourth; ventricles unremarkable. Basal ganglia are symmetric and normal. López white; junction differentiation is well maintained. Cortical stripe is preserved.; There is no vascular territory infarct, hemorrhage, mass, mass effect or edema.; Brainstem and cerebellum remain grossly intact. The basal cisterns were intact.; Mastoids show minimal aeration bilaterally on a developmental basis but were; clear. The visualized sinuses, skull base and calvarium were unremarkable.; ; Impression:; ; 1. Normal noncontrast CT brain. No intracranial hemorrhage, acute infarct, mass; or edema.; ; 2. Skull base, calvarium, sinuses and mastoids clear.; ; ; Signed by; Aren Paul MD 03/22/2016 07:28 P; Radiology Order: Chest, 1 View Test: Chest, 1 View REASON FOR EXAMINATION: confusion; AP PORTABLE CHEST: 03/22/2016.; ; Clinical history: Confusion, altered mental status.; ; Comparison: 08/25/2015, 08/11/2013.; ; Findings: Lordotic AP portable technique. There is eventration and elevation of; the right diaphragm exaggerated by the lordotic projection. Heart size mildly; prominent and with left ventricular configuration also exaggerated by lordotic; portable projection. No gross infiltrate or effusion. Some mild venous; hypertension may be present but there is no pulmonary edema or acute infiltrate.; The aorta is mildly tortuous but normal for age. Airway intact. Bones; unchanged. No free air.; ; Impression:; ; 1. Lordotic projection limits evaluation of the posterior and lower lung zones.; Some pulmonary venous hypertension without pulmonary edema, dense consolidation; or definite effusion.; ; ; Signed by; Aren Paul MD 03/22/2016 07:28 P; Outcome: 13:50 Discharge ordered by Provider. 14:02 Discharge Assessment: Patient awake, alert and oriented x 3. No cognitive and/or dls functional deficits noted. Patient verbalized understanding of disposition instructions. patient administered narcotics - no. The following High Risk Discharge criteria are identified: None. Discharged to home ambulatory. Condition: stable Condition: improved. Discharge instructions given to patient, Instructed on discharge instructions, follow up and referral plans. Demonstrated understanding of instructions, Pt was receptive of discharge instructions/ teaching. CT Study completed. Property sent home with patient. 14:03 Patient left the ED. dls Signatures: Dispatcher [employer] EDMS Nevaeh Vizcaino MD MD ml Scott, Debra, RN RN dls Lai Mao, PSA PSA cs Amy Montes, Reg Reg gb Francia Perdomo, PSA PSA ml4 Eli Sosa RN RN jjr Patchen, Erin, FINISHER SPECIAL STOCKS FINISHER SPECIAL STOCKS elp Yohan Hubbard, FINISHER SPECIAL STOCKS FINISHER SPECIAL STOCKS Efraín Tijerina, Reg Reg mpb Nuha Vera Chart Complete MTDD
--- NOTE | 2016-03-24 15:05 | EDDOCDS ---
Physician Documentation [facility] Name: Efraín Butler Age: 50 yrs Sex: Male : 1965 Arrival Date: 03/22/2016 Time: 10:46 Bed 5 Private MD: Jeffrey Martin A. Disposition: 03/22/16 13:50 Discharged to Home/Self Care. Impression: Alcohol abuse counseling and surveillance, Alcohol abuse with intoxication. - Condition is Stable. - Discharge Instructions: Alcohol Intoxication, Alcohol Abuse and Nutrition. - Medication Reconciliation, Local Pharmacy Hours form. - Follow up: Jeffrey Martin; When: 1 - 2 days. - Problem is an ongoing problem. - Symptoms have improved. - Notes: return if worsening symptoms. follow steps discussed with Lai. Follow up with Dr Martin Historical: - Allergies: no known allergies; - Home Meds: 1. lisinopril 20 mg Oral tab 1 tab once daily (Last dose: 03/22/2016) 2. Norvasc 5 mg Oral tab 1 tab once daily - PMHx: Hypertension; Kidney stones; Diverticulitis; Depression; TIA; - PSHx: Knee surgery- Left; Knee surgery- Right; kidney stent; skin tumors in ears; - Social history: No barriers to communication noted, The patient speaks fluent Tajik, Smoking status: Patient states was never smoker of tobacco. - Family history: Not pertinent. - : The pt / caregiver states he / she is not on anticoagulants. Home medication list is obtained from the patient. - Exposure Risk Screening:: None identified. Vital Signs: 03/22 10:47 BP 171 / 94; Pulse 82; Resp 19; Temp 98.5(O); Pulse Ox 96% on R/A; Weight 99.79 kg / elp 220 lbs (R); Height 5 ft. 9 in. (175.26 cm) (R); 11:18 BP 150 / 84 (auto/); dls 11:19 Pulse 82 MON; Pulse Ox 92% ; dls 11:19 BP 159 / 102; Pulse 93; Resp 20; Temp 97.4(O); Pulse Ox 96% on R/A; Pain 0/10; dls 10:47 Body Mass Index 32.49 (99.79 kg, 175.26 cm) elp MDM: 11:00 Consult PFS/PSA/Pipe Organ Installer ordered. ml 11:00 Consult PFS/PSA/Pipe Organ Installer: Patient's case requires discussion with on-call ml Psychiatrist ordered. 11:00 PSA/PFS to call Nursing Treasury Director, to enter patient data on [place] Safe [place] if patient ml involuntarily admitted or transferred for SI or HI ordered. 11:00 Wheat Washer/Pulse Ox/q 15 min VS ordered. ml 11:00 Confirm accurate psychiatric medication list and times of last dosage ordered. ml 11:00 Detain Pt Until Medically/PFS Cleared ordered. ml 11:00 IV Saline Lock ordered. ml 11:00 NS 0.9% 1000 ml IV at bolus once ordered. ml 11:00 LORazepam 1 mg IVP once ordered. ml 11:00 RN interventions must not delay CT ordered. ml 11:00 Accucheck ordered. ml 11:00 Rhythm Strip to chart ordered. ml 11:00 Stroke assessment pack to bedside ordered. ml 11:01 Acetaminophen Level Ordered. EDMS 11:01 Basic Metabolic Profile Ordered. EDMS 11:01 Complete Blood Count Ordered. EDMS 11:01 Ethyl Alcohol (ethanol) Ordered. EDMS 11:01 Liver Profile Ordered. EDMS 11:01 Salicylate Level Ordered. EDMS 11:01 Thyroid Stimulating Hormone Ordered. EDMS 11:01 CBC with Diff Ordered. EDMS 11:01 Partial Thromboplastin Time Ordered. EDMS 11:01 Prothrombin Time Profile\E\INR Ordered. EDMS 11:01 Type & Screen Ordered. EDMS 11:02 CT Head Without Contrast Ordered. EDMS 11:03 Chest, 1 View Ordered. EDMS 11:03 ECG WITH READING ER PHYS+CARDIAG ordered. EDMS 11:42 Financial registration complete. mpb 11:50 [facility] Payment Agreement was scanned into [employer] and attached to record. mpb 11:59 Fingerstick Blood Sugar Ordered. EDMS 12:07 Acetaminophen Level Reviewed. ml 12:07 Basic Metabolic Profile Reviewed. ml 12:07 Ethyl Alcohol (ethanol) Reviewed. ml 12:07 Liver Profile Reviewed. ml 12:07 Salicylate Level Reviewed. ml 12:07 CBC with Diff Reviewed. ml 12:07 Partial Thromboplastin Time Reviewed. ml 12:07 Thyroid Stimulating Hormone Reviewed. ml 12:07 Prothrombin Time Profile\E\INR Reviewed. ml 12:07 Fingerstick Blood Sugar Reviewed. ml 12:40 Type & Screen Reviewed. ml 12:41 Consult PFS/PSA/Pipe Organ Installer ordered. ml 12:58 Consult PFS/PSA/Pipe Organ Installer complete. dls 12:59 Consult PFS/PSA/Pipe Organ Installer complete. dls 12:59 Consult PFS/PSA/Pipe Organ Installer: Patient's case requires discussion with on-call dls Psychiatrist complete. 12:59 PSA/PFS to call Nursing Treasury Director, to enter patient data [place] Safe [place] if patient dls involuntarily admitted or transferred for SI or HI complete. 13:57 PSA Outpatient Referrals was scanned into [employer] and attached to record. ml4 18:28 T-Sheet-- Draft Copy was scanned into [employer] and attached to record. r 03/23 11:05 ECG/EKG was scanned into [employer] and attached to record. gb 11:06 Other: STROKE SCALE was scanned into [employer] and attached to record. gb Administered Medications: 03/22 11:18 Drug: NS 0.9% 1000 ml [sodium chloride 0.9 % intravenous solution] Route: IV; Rate: dls bolus; Site: left hand; 11:25 Drug: LORazepam 1 mg [lorazepam 2 mg/mL injection solution (0.5 mL)] Route: IVP; Site: dls left hand; Signatures: Dispatcher [employer] EDMN Nevaeh Vizcaino MD MD ml Scott, Debra RN RN dls Amy Montes, Reg Reg gb Francia Perdomo, PSA PSA ml4 Eli Sosa RN RN jjr Briggs, Michael, Reg Reg mpb Nuha Vera The chart was reviewed and I authenticate all verbal orders and agree with the evaluation and treatment provided.Corrections: (The following items were deleted from the chart) 11:01 11:00 Consult [facility]: Telemedicine Stroke Attending ordered. ml ml 12:00 11:00 Neuro VS q 15 Minutes ordered. ml dls 12:00 11:00 Patient must be on CC stretcher and weighed via bed scale ordered. ml dls 12:45 11:01 DRUG EVAL TOXICOLOGY ED ONLY+LAB ordered. EDMS EDMS Attachments: 11:50 [facility] Payment Agreement mpb 18:28 T-Sheet-- Draft Copy [facility] 03/23 11:05 ECG/EKG gb Chart Complete MTDD
== END 2016-03-22 14:03 | disposition home or self-care (01) ==
LOC: M ED 10:46
DX: F10.129 Alcohol abuse with intoxication, unspecified (principal); I10 Essential (primary) hypertension; F32.9 Major depressive disorder, single episode, unspecified; K57.90 Diverticulosis of intestine, part unspecified, without perforation or abscess without bleeding; Z86.73 Personal history of transient ischemic attack (TIA), and cerebral infarction without residual deficits; Z87.442 Personal history of urinary calculi; Z96.0 Presence of urogenital implants; Z79.899 Other long term (current) drug therapy
CPT/HCPCS: 36415; 70450; 71010; 80048; 80076; 84443; 85025; 85610; 85730; 86850; 86900; 86901; 93005; 93041; 96374; 99285; G0480; J2060

== ENCOUNTER 2016-05-13 13:00 | Emergency (ER) | payer MEDICAID, OTHER ==
[~2016-05-13] VITALS: Ht 175.3 cm; Wt 99.8 kg
[~2016-05-13 13:00] MED LIST changes: -COLA100C PO; +COLA100C3 PO; -SERT-141 PO; +SERT50TA PO
[2016-05-13] MEDS ORDERED: LISI-538 PO (13:13)
[2016-05-13] MEDS ORDERED: AMIT10TA (13:13)
[2016-05-13] MEDS ORDERED: MULTIVITAMIN -ADULT INJECTION 10 ML, THIAMINE INJection 100 MG, FOLIC ACID 1 MG in NS 1... IV ONE (13:30)
[2016-05-13] MEDS ORDERED: LORazepam 2 MG/ML VIAL (J2060) IV STA (13:30)
[2016-05-13 14:11] LABS: BASO % 0.5 % (0.0-1.0); EOS % 0.9 % (0.0-3.0); LARGE UNSTAINED CELL % 1.6 % (0.0-4.0); LYMPH % 17.6 % (24.0-44.0); MEAN CORPUSCULAR HEMOGLOBIN 29.2 pg (27.0-33.0); MEAN CORPUSCULAR HGB CONC 32.9 g/dl (32.0-36.5); MEAN CORPUSCULAR VOLUME 88.7 fl (80.0-96.0); MONO % 5.7 % (0.0-5.0); NEUTROPHILS % 73.7 % (36.0-66.0); PLATELET COUNT, AUTOMATED 182 k/mm3 (150-450)
[2016-05-13 14:12] LABS: EOS # 0.1 K/mm3 (0.0-0.50); LARGE UNSTAINED CELL # 0.1 K/mm3 (0.0-0.4); LYMPH # 1.2 K/mm3 (1.5-4.5); MONO # 0.4 K/mm3 (0.0-0.8); NEUTROPHILS # 5.1 K/mm3 (1.8-7.7)
--- NOTE | 2016-05-13 14:12 | REP ---
PORTABLE CHEST: AP portable view of the chest is performed and compared to a prior study of 03/22/2016. The cardiomediastinal silhouette is unchanged. There is no acute infiltrate or pulmonary edema. The visualized osseous structures appear intact. IMPRESSION: No acute pulmonary disease. Signed by Grayson López MD 05/13/2016 05:40 P
[2016-05-13 14:17] LABS: ALBUMIN/GLOBULIN RATIO 1.14 (1.00-1.93); ALKALINE PHOSPHATASE 68 U/L (45-117); ALT/SGPT 68 U/L (12-78); ANION GAP 8 MEQ/L (8-16); AST/SGOT 39 U/L (15-37); BILIRUBIN,DIRECT 0.1 MG/DL (0.0-0.2); BILIRUBIN,TOTAL 0.3 MG/DL (0.2-1.0); BLOOD UREA NITROGEN 9 MG/DL (7-18); CALCIUM LEVEL 9.2 MG/DL (8.5-10.1); CARBON DIOXIDE LEVEL 27 MEQ/L (21-32); CHLORIDE LEVEL 105 MEQ/L (98-107); CREATININE FOR GFR 0.77 MG/DL (0.70-1.30); GLOMERULAR FILTRATION RATE > 60.0 (>56); GLUCOSE, FASTING 142 MG/DL (70-105); POTASSIUM SERUM 3.8 MEQ/L (3.5-5.1); SODIUM LEVEL 140 MEQ/L (136-145); TOTAL PROTEIN 7.5 GM/DL (6.4-8.2)
[2016-05-13] MEDS ORDERED: OXAZEPAM 10 MG CAP PO ONE (14:30)
[2016-05-13 15:01] LABS: METHADONE URINE NEGATIVE (NEGATIVE)
[2016-05-13] MEDS ORDERED: OXAZ10CA PO (16:04)
[2016-05-13 16:18] VITALS: BP 147/93
--- NOTE | 2016-05-13 21:48 | ECGEPIP ---
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
== END 2016-05-13 16:27 | disposition home or self-care (01) ==
LOC: M ED 14:14
DX: F10.230 Alcohol dependence with withdrawal, uncomplicated (principal); I10 Essential (primary) hypertension; F32.9 Major depressive disorder, single episode, unspecified; Z86.73 Personal history of transient ischemic attack (TIA), and cerebral infarction without residual deficits; Z79.899 Other long term (current) drug therapy
CPT/HCPCS: 71010; 80048; 80076; 80306; 82550; 84443; 85025; 93005; 93041; 96374; 99285; G0480; J2060; J3411

== ENCOUNTER 2016-07-16 20:27 | Emergency (ER) | payer OTHER ==
[~2016-07-16] VITALS: Ht 175.3 cm; Wt 99.8 kg
[~2016-07-16 20:27] MED LIST changes: +AMIT10TA
[2016-07-16] MEDS ORDERED: MORPHINE 4 MG/ML 1ML SYRINGE IV PRN (21:00)
[2016-07-16] MEDS ORDERED: ONDANSETRON 4MG/2ML VIAL (J2405) IV ONE (21:00)
[2016-07-16] MEDS ORDERED: NS 1,000 ML IV ONE (21:00)
[2016-07-16] MEDS ORDERED: KETOROLAC 30 MG/ML VIAL (J1885) IV ONE (21:00)
[2016-07-16 21:40] LABS: CALCIUM OXALATE CRYSTALS MODERATE
[2016-07-16 21:46] LABS: BASO # 0.1 K/mm3 (0.0-0.2); BASO % 0.5 % (0.0-1.0); EOS # 0.1 K/mm3 (0.0-0.50); EOS % 0.7 % (0.0-3.0); LARGE UNSTAINED CELL # 0.2 K/mm3 (0.0-0.4); LARGE UNSTAINED CELL % 1.6 % (0.0-4.0); LYMPH # 1.6 K/mm3 (1.5-4.5); LYMPH % 13.6 % (24.0-44.0); MEAN CORPUSCULAR HEMOGLOBIN 30.6 pg (27.0-33.0); MEAN CORPUSCULAR VOLUME 90.1 fl (80.0-96.0); MONO # 0.7 K/mm3 (0.0-0.8); MONO % 6.1 % (0.0-5.0); NEUTROPHILS # 8.2 K/mm3 (1.8-7.7); NEUTROPHILS % 77.5 % (36.0-66.0); PLATELET COUNT, AUTOMATED 206 k/mm3 (150-450); RED CELL DISTRIBUTION WIDTH 13.3 % (11.5-14.5); WHITE BLOOD COUNT 10.6 K/mm3 (4.0-10.0)
[2016-07-16 21:48] LABS: ALBUMIN 4.8 GM/DL (3.2-5.2); ALBUMIN/GLOBULIN RATIO 1.23 (1.00-1.93); BILIRUBIN,DIRECT 0.2 MG/DL (0.0-0.2); CALCIUM LEVEL 10.1 MG/DL (8.5-10.1); CREATININE FOR GFR 1.58 MG/DL (0.70-1.30); GLOMERULAR FILTRATION RATE 49.3 (>56); POTASSIUM SERUM 4.7 MEQ/L (3.5-5.1); TOTAL PROTEIN 8.7 GM/DL (6.4-8.2)
--- NOTE | 2016-07-16 22:10 | REPUSA ---
CT of the abdomen and pelvis without contrast Clinical statement: Pain. Technique: Multiple axial CT images were obtained from the base of the lungs to the floor of the pelv is utilizing 5 mm axial slices without administration of contrast. Coronal and sagittal reconstructio ns were also obtained. Comparison: 08/30/2015. Findings: Chest: The visualized lung bases are clear. Abdomen: The kidneys are normal in size bilaterally. There is no evidence of hydronephrosis or nephro lithiasis. There is diffuse low attenuation of the liver, consistent with fatty infiltration. No foca l hepatic masses are identified. The spleen, pancreas, gallbladder and adrenal glands are unremarkabl e. The aorta demonstrates normal caliber and contour. There is no abdominal lymphadenopathy or ascite s. Pelvis: The appendix is normal. Diffuse left-sided diverticulosis is stable. However, there is a foca l area bowel wall thickening in the distal sigmoid colon, with mild surrounding inflammation, suspici ous for acute sigmoid diverticulitis. There is no evidence of abscess or perforation. There is no desean dence of bowel obstruction. The urinary bladder is within normal limits. There is no pelvic lymphaden opathy or ascites. The other pelvic structures appear unremarkable. Bones: There are no suspicious osseous abnormalities seen. There is a moderate chronic anterior compr ession fracture of T12. Impression: 1. Focal acute sigmoid diverticulitis. No evidence of abscess or perforation. 2. Diffuse fatty infiltration of the liver. 3. No evidence of hydronephrosis or nephrolithiasis. 4.. Chronic anterior compression defect of T12.
[2016-07-16] MEDS ORDERED: MORPHINE 4 MG/ML 1ML SYRINGE IV ONE (22:15)
[2016-07-16] MEDS ORDERED: FLAG500T PO (22:50)
[2016-07-16] MEDS ORDERED: CIPR500T89 PO (22:50)
[2016-07-16] MEDS ORDERED: NORCOTAB PO (22:50)
[2016-07-16] MEDS ORDERED: metroNIDAZOLE (FLAGYL) 500 MG TAB PO ONE (23:00)
[2016-07-16] MEDS ORDERED: NORCO, ANEXSIA 5/325MG TABLET (HYDROcodone/ACETAMINOPHEN) PO ONE (23:00)
[2016-07-16] MEDS ORDERED: CIPROFLOXACIN 500 MG TAB PO ONE (23:00)
[2016-07-16 23:13] VITALS: BP 133/90
== END 2016-07-16 23:15 | disposition home or self-care (01) ==
LOC: M ED 20:27
DX: K57.90 Diverticulosis of intestine, part unspecified, without perforation or abscess without bleeding (principal); K76.0 Fatty (change of) liver, not elsewhere classified; K58.9 Irritable bowel syndrome, unspecified; Z87.442 Personal history of urinary calculi; Z79.899 Other long term (current) drug therapy; Z96.0 Presence of urogenital implants

== ENCOUNTER 2016-08-07 20:09 | Inpatient (IN) | payer OTHER ==
[~2016-08-07] VITALS: Ht 175.3 cm; Wt 100.6 kg
[~2016-08-07 20:09] MED LIST changes: -AMIT10TA; +AMIT10TA PO; +CIPR-249 PO; -COLA100C3 PO; +COLA100C5 PO; +FLUO20CA19 PO; -FLUO20CA9 PO; -FOLI1TAB2 PO; +FOLI1TAB4 PO; +NORCOTAB PO; -OXAZ10CA PO; +OXAZ10CA3 PO
[2016-08-07] MEDS ORDERED: MORPHINE 4 MG/ML 1ML SYRINGE IV ONE (21:00)
[2016-08-07] MEDS ORDERED: NS 1,000 ML IV ONE (21:00)
[2016-08-07] MEDS ORDERED: METOCLOPRAMIDE INJ 10MG/2ML VIAL (J2765) IV ONE (21:00)
[2016-08-07 21:38] LABS: BASO % 0.3 % (0.0-1.0); EOS % 0.3 % (0.0-3.0); LARGE UNSTAINED CELL # 0.1 K/mm3 (0.0-0.4); LARGE UNSTAINED CELL % 0.5 % (0.0-4.0); LYMPH # 0.8 K/mm3 (1.5-4.5); LYMPH % 4.8 % (24.0-44.0); MEAN CORPUSCULAR HEMOGLOBIN 29.2 pg (27.0-33.0); MEAN CORPUSCULAR HGB CONC 33.5 g/dl (32.0-36.5); MEAN CORPUSCULAR VOLUME 87.2 fl (80.0-96.0); MONO # 0.8 K/mm3 (0.0-0.8); MONO % 5.5 % (0.0-5.0); NEUTROPHILS # 13.6 K/mm3 (1.8-7.7); NEUTROPHILS % 88.6 % (36.0-66.0); PLATELET COUNT, AUTOMATED 216 k/mm3 (150-450); RED CELL DISTRIBUTION WIDTH 13.2 % (11.5-14.5); WHITE BLOOD COUNT 15.4 K/mm3 (4.0-10.0)
[2016-08-07 21:46] LABS: ALBUMIN 4.4 GM/DL (3.2-5.2); ALBUMIN/GLOBULIN RATIO 1.05 (1.00-1.93); BILIRUBIN,DIRECT 0.2 MG/DL (0.0-0.2); BILIRUBIN,TOTAL 1.4 MG/DL (0.2-1.0); CALCIUM LEVEL 9.6 MG/DL (8.5-10.1); CREATININE FOR GFR 2.04 MG/DL (0.70-1.30); GLOMERULAR FILTRATION RATE 36.7 (>56); POTASSIUM SERUM 3.6 MEQ/L (3.5-5.1); TOTAL PROTEIN 8.6 GM/DL (6.4-8.2)
[2016-08-07] MEDS ORDERED: GASTROGRAFIN SOLUTION 30ML (Q9963) PO ONE ×2 (22:15)
[2016-08-07] MEDS ORDERED: HYDROmorphone HCL 1 MG/ML SYRINGE (J1170) IV ONE (22:30)
[2016-08-08] MEDS ORDERED: metroNIDAZOLE 750 MG in APPROPRIATE DILUENT 1 EA IV ONE ×2
[2016-08-08] MEDS ORDERED: PIPERACILLIN/TAZOBACTAM SOD 3.375 GM in D5W MINI-BAG PLUS 50 ML IV ONE ×2
--- NOTE | 2016-08-08 | REPUSA ---
CT of the abdomen and pelvis without contrast Clinical statement: Pain. Technique: Multiple axial CT images were obtained from the base of the lungs to the floor of the pelv is utilizing 5 mm axial slices aafter administration of oral contrast. Coronal and sagittal reconstru ctions were also obtained. Comparison: 07/16/2016. Findings: Chest: The visualized lung bases are clear. Abdomen: The kidneys are normal in size bilaterally. There is no evidence of hydronephrosis or nephro lithiasis. Diffuse low attenuation of the liver is unchanged. The spleen, pancreas, gallbladder and a drenal glands are unremarkable. The aorta demonstrates normal caliber and contour. There is no abdomi nal lymphadenopathy or ascites. Pelvis: There is sigmoid diverticulosis. There is focal bowel wall thickening in the sigmoid colon. No surrounding inflammation or fluid collections are identified. There is no evidence of bowel obstru ction. The urinary bladder is within normal limits. There is no pelvic lymphadenopathy or ascites. Th e other pelvic structures appear unremarkable. Bones: There are no suspicious osseous abnormalities seen.. The chronic anterior compression fracture of T12 is stable. Impression: 1. Focal acute sigmoid diverticulitis. No evidence of abscess or perforation. 2. Stable fatty infiltration the liver. 3. Stable compression fracture of T12. 4. Overall, no significant interval change.
[2016-08-08] MEDS ORDERED: AMLO5TAB2 PO (00:37)
[2016-08-08] MEDS ORDERED: FLUO20CA8 PO (00:37)
[2016-08-08] MEDS ORDERED: cefTRIAXone SOD 1 GM in D5W MINI-BAG PLUS 50 ML IV SCH (01:00)
[2016-08-08] MEDS ORDERED: ONDANSETRON 4MG/2ML VIAL (J2405) IV PRN (01:15)
[2016-08-08] MEDS ORDERED: ACETAMINOPHEN TAB 650MG DOSE (2X325MG) PO PRN (01:15)
[2016-08-08 01:55] VITALS: BP 160/102
[2016-08-08] MEDS: NS 1,000 ML IV SCH ×3 (02:22→21:33)
[2016-08-08] MEDS: PERCOCET 5MG/325MG TAB PO PRN ×5 (02:23→23:00)
--- NOTE | 2016-08-08 04:46 | HPE ---
DATE OF ADMISSION: 08/08/2016 PRIMARY CARE PROVIDER: Jeffrey Martin MD. ATTENDING PHYSICIAN: Dr. Lei. CHIEF COMPLAINT: Persistent left lower quadrant abdominal pain. HISTORY OF PRESENT ILLNESS: The patient is a 50-year-old white male with several chronic medical conditions listed below, presented to the emergency room (ER) for evaluation of persistent pain in his left abdomen. History is provided by himself. Per the patient, he states he has history of diverticulitis in the past. On 07/16 this year, again he developed the pain in his left abdomen, which is persistent, the worst pain about eight, sharp pain, no radiation, at that time no fever, no chills. He came to the ER. He underwent CT of abdomen and pelvis, which was diagnosed with diverticulitis and he was discharged home on oral Cipro and Flagyl for 10 days, which he just finished. However, his condition is not improving after antibiotic treatment. Instead, he said his pain is getting worse and more persistent located in the left side, particularly left lower quadrant and he cannot keep anything down, had vomiting for several episodes today, but no diarrhea. He decided to come to the ER again. In the ER, he underwent CT of abdomen and pelvis again, which still demonstrated acute sigmoid diverticulitis. He was given intravenous (IV) Flagyl, Zosyn in the ER. Meanwhile, medicine service called for admission. REVIEW OF SYSTEMS: Denies fever. No chills. No headache. No blurry vision. No shortness of breath. No chest pain. Positive nausea and vomiting, but no hematemesis. Positive abdominal pain as described in the history of present illness (HPI). No diarrhea. No rectal bleeding. No tingling, numbness, weakness in the arms, lower extremities. All other systems reviewed, but negative. PAST MEDICAL HISTORY: 1. Recurrent diverticulitis. 2. Hypertension. 3. Depression and anxiety. PAST SURGICAL HISTORY: Multiple bilateral knee repairs, as well as kidney stones removed. ALLERGIES: No known drug allergies. FAMILY HISTORY: He is adopted. Does not know the biological parents and family. MEDICATIONS: - lisinopril 20 mg by mouth daily - amitriptyline 10 mg by mouth daily - fluoxetine 20 mg by mouth daily - amlodipine 5 mg by mouth daily PHYSICAL EXAMINATION: VITAL SIGNS: Temperature 97.6, heart rate 135, respirations 20, blood pressure 150/110, and oxygen saturation 96% on room air. GENERAL: He is awake, alert, oriented times three. He is not in acute distress. HEENT: Atraumatic. Pupils are equal, round and reactive to light. No jaundice. Extraocular muscles intact. Ears, nose, and throat are normal without any inflammation or ulcer. Mouth mucosa dry. LUNGS: Clear, no crackles, no wheezing. HEART: S1, S2, regular. No murmur. Mild tachycardia. ABDOMEN: Soft. Bowel sounds positive. He has some tenderness in his left abdomen, but no rebound. LOWER EXTREMITIES: No edema in his bilateral lower extremities. NEUROLOGICAL: Nonfocal. SKIN: No rash. PSYCHOLOGICAL: No acute psychosis. DIAGNOSTIC LABORATORY STUDIES: Including the following: CBC and differential: WBC 15, hemoglobin and hematocrit 17/53, platelets 216. Sodium 133, potassium 3.6, chloride 97, bicarbonate 25, BUN 17, creatinine 2.4, glucose 121. CT of abdomen and pelvis showed acute sigmoid diverticulitis without abscess or perforation. IMPRESSION: 1. Sepsis due to acute sigmoid diverticulitis. 2. Acute renal failure and dehydration. 3. History of hypertension. 4. History of anxiety/depression. PLAN: Patient will be admitted to medical/surgical floor. He failed oral antibiotic treatment as outpatient. Will start him on intravenous (IV) ceftriaxone and Flagyl. He has increased creatinine and dehydration. Will give him IV normal saline and repeat creatinine in the morning. Will hold his lisinopril due to acute renal injury. Will start him on clear liquid diet. May consider to consult surgery since patient has recurrent diverticulitis. MARYJO
[2016-08-08] MEDS: HEPARIN SOD (PORCINE) 5000 UNITS/ML VIAL SC SCH ×3 (05:17→21:34)
[2016-08-08 06:00] VITALS: BP 130/92
[2016-08-08 06:23] LABS: BASO % 0.2 % (0.0-1.0); EOS # 0.1 K/mm3 (0.0-0.50); EOS % 0.5 % (0.0-3.0); LARGE UNSTAINED CELL # 0.1 K/mm3 (0.0-0.4); LARGE UNSTAINED CELL % 1.2 % (0.0-4.0); LYMPH # 1.1 K/mm3 (1.5-4.5); LYMPH % 9.1 % (24.0-44.0); MEAN CORPUSCULAR HEMOGLOBIN 30.4 pg (27.0-33.0); MEAN CORPUSCULAR HGB CONC 34.5 g/dl (32.0-36.5); MEAN CORPUSCULAR VOLUME 88.2 fl (80.0-96.0); MONO # 0.5 K/mm3 (0.0-0.8); NEUTROPHILS # 10.5 K/mm3 (1.8-7.7); PLATELET COUNT, AUTOMATED 185 k/mm3 (150-450); WHITE BLOOD COUNT 12.3 K/mm3 (4.0-10.0)
[2016-08-08 06:46] LABS: ALBUMIN 3.6 GM/DL (3.2-5.2); BILIRUBIN,TOTAL 1.2 MG/DL (0.2-1.0); CALCIUM LEVEL 8.7 MG/DL (8.5-10.1); CREATININE FOR GFR 1.64 MG/DL (0.70-1.30); GLOMERULAR FILTRATION RATE 47.2 (>56); POTASSIUM SERUM 3.8 MEQ/L (3.5-5.1); TOTAL PROTEIN 7.2 GM/DL (6.4-8.2)
[2016-08-08] MEDS: metroNIDAZOLE 500 MG in APPROPRIATE DILUENT 1 EA IV SCH ×2 (08:50→15:35)
[2016-08-08] MEDS: PANTOPRAZOLE 40MG TAB (PROTONIX) PO SCH (08:51)
[2016-08-08] MEDS: FLUoxetine 20 MG CAP PO SCH (08:53)
[2016-08-08] MEDS: amLODIPine 5 MG TAB PO SCH (08:53)
[2016-08-08] MEDS: AMITRIPTYLINE 10 MG TAB PO SCH (08:53)
[2016-08-08] MEDS: SENOKOT S TAB PO SCH ×2 (10:40→21:33)
[2016-08-08] MEDS: diphenhydrAMINE 25 MG CAP PO PRN ×3 (10:40→22:59)
[2016-08-08] MEDS: CIPROFLOXACIN 200 MG in APPROPRIATE DILUENT 1 EA IV SCH ×2 (12:10→23:00)
--- NOTE | 2016-08-08 12:12 | IPN ---
DATE: 08/08/2016 The patient is seen and examined. Reported improvement in abdominal pain. No nausea or vomiting. Tolerating clear liquid diet. Denies any chest pain, pressure, discomfort, fevers or chills. Currently comfortable. VITAL SIGNS: Temperature 98.4, pulse 82, respirations 18, blood pressure 129/74, pulse oximetry 94% on room air. LABORATORY DATA: WBC 12.3, hemoglobin and hematocrit 16/46.6, platelets 185. Chemistry: Sodium 135, potassium 3.8, chloride 102, bicarbonate 23, BUN 21, creatinine 1.6. PHYSICAL EXAMINATION: GENERAL: The patient is alert and oriented times three. In no acute distress. Obese. HEENT: Normocephalic, atraumatic. PULMONARY: Bilaterally clear to auscultation. CARDIAC: Regular rate and rhythm. Normal S1, S2. ABDOMEN: Soft, nontender. Positive bowel sounds. No rebound. No guarding. EXTREMITIES: No edema in bilateral lower extremities. SKIN: No rash. NEUROLOGIC: No focal deficits. ASSESSMENT AND PLAN: This is a 50-year-old male patient with underlying medical history of recurrent diverticulitis, hypertension, depression, anxiety, who presented to the emergency department for evaluation of persistent abdominal pain with nausea, poor oral intake, and recurrent diverticulitis refractory to outpatient treatment and also acute kidney injury. 1. Acute kidney injury. IV fluids for hydration. Secondary to acute diverticulitis. IV hydration. Followup BUN and creatinine. Monitor electrolytes. 2. Acute diverticulitis. IV fluids. Clear liquid diet. Advance as tolerated. Cipro and Flagyl. Consider outpatient followup with general surgeon. CT scan is appreciated. 3. Hypertension. Continue current medications. 4. Depression and anxiety. Continue current medications. 5. Deep vein thrombosis (DVT) prophylaxis. Heparin subcutaneously. DISPOSITION PLANNING: Pending clinical improvement. Advance diet as tolerated.
[2016-08-08 14:00] VITALS: BP 124/87
[2016-08-08 22:00] VITALS: BP 124/78
[2016-08-09] MEDS: metroNIDAZOLE 500 MG in APPROPRIATE DILUENT 1 EA IV SCH ×3 (00:14→16:27)
[2016-08-09] MEDS: diphenhydrAMINE 25 MG CAP PO PRN ×3 (05:39→21:17)
[2016-08-09] MEDS: HEPARIN SOD (PORCINE) 5000 UNITS/ML VIAL SC SCH ×3 (05:40→21:17)
[2016-08-09] MEDS: NS 1,000 ML IV SCH ×2 (05:40→07:43)
[2016-08-09] MEDS: PERCOCET 5MG/325MG TAB PO PRN ×3 (05:40→21:17)
[2016-08-09 05:57] LABS: ANION GAP 5 MEQ/L (8-16); BLOOD UREA NITROGEN 19 MG/DL (7-18); CALCIUM LEVEL 8.1 MG/DL (8.5-10.1); CARBON DIOXIDE LEVEL 25 MEQ/L (21-32); CHLORIDE LEVEL 109 MEQ/L (98-107); CREATININE FOR GFR 0.85 MG/DL (0.70-1.30); GLOMERULAR FILTRATION RATE > 60.0 (>56); GLUCOSE, FASTING 97 MG/DL (70-105); MAGNESIUM LEVEL 2.1 MG/DL (1.8-2.4); POTASSIUM SERUM 3.9 MEQ/L (3.5-5.1); SODIUM LEVEL 139 MEQ/L (136-145)
[2016-08-09 06:00] VITALS: BP 139/81
[2016-08-09 06:25] LABS: MEAN CORPUSCULAR HEMOGLOBIN 30.2 pg (27.0-33.0); MEAN CORPUSCULAR HGB CONC 33.3 g/dl (32.0-36.5); MEAN CORPUSCULAR VOLUME 90.6 fl (80.0-96.0); RED CELL DISTRIBUTION WIDTH 13.1 % (11.5-14.5); WHITE BLOOD COUNT 4.1 K/mm3 (4.0-10.0)
[2016-08-09] MEDS: SENOKOT S TAB PO SCH ×2 (10:11→21:16)
[2016-08-09] MEDS: PANTOPRAZOLE 40MG TAB (PROTONIX) PO SCH (10:11)
[2016-08-09] MEDS: amLODIPine 5 MG TAB PO SCH (10:11)
[2016-08-09] MEDS: AMITRIPTYLINE 10 MG TAB PO SCH (10:11)
[2016-08-09] MEDS: FLUoxetine 20 MG CAP PO SCH (10:12)
--- NOTE | 2016-08-09 12:09 | IPN ---
DATE: 08/09/2016 The patient is seen and examined. Tolerating diet. Denies any nausea or vomiting. Reported left upper quadrant abdominal pain. Slightly worse than yesterday. Worsened with eating. Denies any chest pain, pressure or disorder. Had one small bowel movement. Continues to report constipation. Denies any chest pain, shortness of breath. Currently comfortable. VITAL SIGNS: Temperature 97.1, pulse 86, respirations 20, blood pressure 140/84, pulse oximetry 98% room air. LABORATORY DATA: WBC 4.1, hemoglobin and hematocrit 12.9/38.6, platelets 113. Chemistry: Sodium 139, potassium 3.9, chloride 109, bicarbonate 25, BUN 19, creatinine 0.85. PHYSICAL EXAMINATION: GENERAL: The patient is alert and oriented times three. No acute distress. Obese. HEENT: Normocephalic, atraumatic. PULMONARY: Bilaterally clear to auscultation. CARDIAC: Regular rate and rhythm. Normal S1, S2. ABDOMEN: Soft, nontender, nondistended. Positive bowel sounds. EXTREMITIES: No edema in bilateral lower extremities. NEUROLOGIC: No focal deficits. ASSESSMENT AND PLAN: This is a 50-year-old male patient with underlying medical history of recurrent diverticulitis, hypertension, depression, anxiety, who presented to the emergency room for evaluation of persistent abdominal pain, nausea, poor oral intake, frequent diverticulitis, admitted for recurrent diverticulitis refractory to outpatient treatment and also acute kidney injury. 1. Acute kidney injury. Returned to baseline after IV fluids. Likely secondary to dehydration and due to acute diverticulitis. Followup BUN and creatinine. Fluid has been discontinued. We will continue to monitor. 2. Acute diverticulitis. IV fluids initially provided. Advance diet to regular, high fiber diet. Cipro and Flagyl. Will need outpatient general surgery followup. CT scan appreciated. 3. Hypertension. Continue current medications. 4. Depression and anxiety. Continue current medications. 5. Deep vein thrombosis (DVT) prophylaxis. Heparin subcutaneously. DISPOSITION PLANNING: Pending clinical improvement. Likely discharge over the next 24 hours.
[2016-08-09] MEDS: CIPROFLOXACIN 200 MG in APPROPRIATE DILUENT 1 EA IV SCH ×2 (12:17→23:06)
[2016-08-09] MEDS: MIRALAX *UNIT DOSE* 17GM PACKET PO SCH (12:17)
[2016-08-09 14:00] VITALS: BP 129/75
[2016-08-09 22:00] VITALS: BP 163/88
[2016-08-10] MEDS: metroNIDAZOLE 500 MG in APPROPRIATE DILUENT 1 EA IV SCH ×2 (00:50→07:46)
[2016-08-10] MEDS: diphenhydrAMINE 25 MG CAP PO PRN ×2 (02:12→06:36)
[2016-08-10] MEDS: PERCOCET 5MG/325MG TAB PO PRN ×2 (02:13→06:36)
[2016-08-10] MEDS: HEPARIN SOD (PORCINE) 5000 UNITS/ML VIAL SC SCH (05:47)
[2016-08-10 06:00] VITALS: BP 152/69
[2016-08-10 06:16] LABS: MEAN CORPUSCULAR HEMOGLOBIN 30.4 pg (27.0-33.0); MEAN CORPUSCULAR HGB CONC 33.7 g/dl (32.0-36.5); MEAN CORPUSCULAR VOLUME 90.3 fl (80.0-96.0); RED CELL DISTRIBUTION WIDTH 13.3 % (11.5-14.5); WHITE BLOOD COUNT 4.2 K/mm3 (4.0-10.0)
[2016-08-10 06:35] LABS: ANION GAP 6 MEQ/L (8-16); BLOOD UREA NITROGEN 14 MG/DL (7-18); CALCIUM LEVEL 8.4 MG/DL (8.5-10.1); CARBON DIOXIDE LEVEL 28 MEQ/L (21-32); CHLORIDE LEVEL 105 MEQ/L (98-107); CREATININE FOR GFR 0.79 MG/DL (0.70-1.30); GLOMERULAR FILTRATION RATE > 60.0 (>56); GLUCOSE, FASTING 89 MG/DL (70-105); POTASSIUM SERUM 3.9 MEQ/L (3.5-5.1); SODIUM LEVEL 139 MEQ/L (136-145)
[2016-08-10 08:38] VITALS: BP 134/86
[2016-08-10] MEDS: FLUoxetine 20 MG CAP PO SCH (09:06)
[2016-08-10] MEDS: SENOKOT S TAB PO SCH (09:06)
[2016-08-10] MEDS: AMITRIPTYLINE 10 MG TAB PO SCH (09:06)
[2016-08-10] MEDS: PANTOPRAZOLE 40MG TAB (PROTONIX) PO SCH (09:06)
[2016-08-10 09:07] VITALS: BP 134/86
[2016-08-10] MEDS: amLODIPine 5 MG TAB PO SCH (09:07)
[2016-08-10] MEDS: MIRALAX *UNIT DOSE* 17GM PACKET PO SCH (09:07)
[2016-08-10] MEDS ORDERED: ISOVUE-370 76% 100ML VIAL (Q9967) As Ordered ONE (09:12)
--- NOTE | 2016-08-10 10:03 | REP ---
Clinical: Left upper quadrant pain. Technique axial contrast enhanced images from the lung bases to the pubic symphysis using 100 ml Isovue 370 intravenous contrast material with coronal and sagittal re-formations. Comparison: 08/07/2016. Findings: Lung bases are relatively clear. Visualized heart and pericardium normal. Fatty infiltration to the liver noted without focal hepatic lesion. Spleen, pancreas, gallbladder, bilateral adrenal glands and kidneys are normal. Evaluation of the enteric system demonstrates continued mural thickening with subtle pericolonic stranding involving the mid/distal sigmoid colon within the pelvis and compatible with acute diverticulitis. No evidence for associated bowel perforation, obstruction, or drainable collection/abscess. The remainder of the small large bowel is without obstruction or further acute inflammatory process. Normal terminal ileum and appendix are identified in the right lower quadrant. Pelvis demonstrates collapsed bladder and age appropriate prostate/seminal vesicles. Small fat containing inguinal hernias noted. No ascites. No free air. No significant adenopathy. Surrounding musculoskeletal structures are intact. Abdominal aorta and vasculature without aneurysm or dissection. Impression: 1. Mural thickening with mild pericolonic stranding and adjacent lymph nodes similar to prior examination suggest diverticulitis. However, colonoscopy may be warranted to exclude underlying pathology including neoplasm. 2. Hepatosteatosis. 3. No further acute intra-abdominal or pelvic pathology appreciated. Signed by Eros Garnica MD 08/10/2016 09:55 A
[2016-08-10] MEDS ORDERED: FLAG500T PO (10:54)
[2016-08-10] MEDS ORDERED: PEG1POW PO (10:54)
[2016-08-10] MEDS ORDERED: CIPR-249 PO (10:54)
[2016-08-10] MEDS ORDERED: SENN1TAB2 PO (10:54)
[2016-08-10] MEDS ORDERED: NORC1TAB4 PO (10:56)
[2016-08-10] MEDS: CIPROFLOXACIN 200 MG in APPROPRIATE DILUENT 1 EA IV SCH (11:27)
--- NOTE | 2016-08-10 12:48 | DSES ---
DATE OF ADMISSION: 08/08/2016 DATE OF DISCHARGE: PRIMARY CARE PROVIDER: Jeffrey Martin MD GENERAL SURGEON: Enoch Russell MD FINAL DIAGNOSES: 1. Acute kidney injury. 2. Acute diverticulitis. 3. Hypertension. 4. Depression. 5. Anxiety. HISTORY OF PRESENT ILLNESS: This is a 50-year-old male patient with underlying medical history of depression, anxiety, hypertension, history of diverticulitis, presented to emergency room for evaluation of persistent left-sided abdominal pain. Patient has history of diverticulitis in the past with recurring 07/16/2016 with left-sided abdominal pain, which has persisted sharp, non-radiating. Denies any fevers or chill. Patient was evaluated in the emergency department (ED) previously, was diagnosed with diverticulitis, sent home with Flagyl and Cipro, which patient has finished. Patient's condition did not improve with antibiotic treatment and subsequently has worsening pain with some nausea, vomiting, poor oral intake, subsequently presented to the hospital, was found to be in acute kidney injury. HOSPITAL COURSE: Intravenous (IV) fluids was given. Cipro/Flagyl was given. Patient was initially made nothing by mouth. Aggressive IV hydration was provided to the patient. Patient's kidney function progressively improved back to baseline. Patient's diet was advanced. CT scan was appreciated and repeat CT scan was done to rule out any abscesses. Patient currently tolerating oral with reasonable pain at left upper quadrant of the patient's abdomen with no costovertebral angle (CVA) tenderness. Patient currently is tolerating oral, ready for further workup as outpatient. VITAL SIGNS: Temperature 98.7, pulse 67, respirations 18, blood pressure 134/86, pulse oximetry 98% on room air. GENERAL: Patient alert, oriented times three, in no acute distress. HEENT: Normocephalic, atraumatic. PULMONARY: Bilaterally clear to auscultation. CARDIAC: Regular rate and rhythm. Normal S1, S2. ABDOMEN: Mild left upper quadrant tenderness. No rebound. No guarding. Positive bowel sounds. Hypoactive. EXTREMITIES: No edema in bilateral lower extremities. NEUROLOGIC: No focal deficits. LABORATORY DATA: WBC 4.2, hemoglobin and hematocrit 13.2/39.1, platelets 130. Chemistry: Sodium 139, potassium 3.9, chloride 105, bicarbonate 28, BUN 14, creatinine 0.79. DISCHARGE MEDICATION: - [place] 5/325 mg by mouth every 6 hours as needed, pain - Cipro 500 mg by mouth twice a day, #14 tablets - Flagyl 500 mg by mouth every 8 hours, #21 tablets prescribed - MiraLAX one pack by mouth daily for 7 packs - senna plus 1 tablet by mouth twice a day, #16 tablets Patient's home medication amitriptyline 10 mg by mouth daily, Norvasc 5 mg by mouth daily, - fluoxetine 20 mg by mouth daily, lisinopril 20 mg by mouth daily, were continued. DISCHARGE INSTRUCTIONS: Patient instructed to followup with primary care provider in 7 days, Dr. Russell, general surgeon in 10 days. Return to the hospital if symptoms worsen. Observe high fiber diet. Patient will eventually need a colonoscopy for further evaluation of underlying neoplasm.
== END 2016-08-10 13:03 | disposition home or self-care (01) | DRG 244 ==
LOC: M ED 20:09 → M ED INP 08-08 01:11 → M MSPAV 08-08 01:52
PROVIDERS: ADMIT Hospitalist; ATTEND Hospitalist
DX: K57.32 Diverticulitis of large intestine without perforation or abscess without bleeding (principal); N17.9 Acute kidney failure, unspecified; I10 Essential (primary) hypertension; F41.9 Anxiety disorder, unspecified; F32.9 Major depressive disorder, single episode, unspecified; E86.0 Dehydration; Z87.442 Personal history of urinary calculi; Z79.899 Other long term (current) drug therapy

== ENCOUNTER 2016-08-27 14:55 | Inpatient (IN) | payer OTHER ==
[~2016-08-27] VITALS: Ht 175.3 cm; Wt 104.9 kg
[~2016-08-27 14:55] MED LIST changes: +FLUO20CA8 PO; +NORC1TAB4 PO; +PEG1POW PO; +SENN1TAB2 PO
[2016-08-27] MEDS ORDERED: amLODIPine 5 MG TAB As Ordered ONE (15:49)
[2016-08-27 16:00] LABS: BASO % 0.7 % (0.0-1.0); EOS % 0.4 % (0.0-3.0); LARGE UNSTAINED CELL # 0.1 K/mm3 (0.0-0.4); LARGE UNSTAINED CELL % 1.1 % (0.0-4.0); LYMPH # 0.9 K/mm3 (1.5-4.5); LYMPH % 12.1 % (24.0-44.0); MEAN CORPUSCULAR HEMOGLOBIN 30.9 pg (27.0-33.0); MEAN CORPUSCULAR HGB CONC 35.3 g/dl (32.0-36.5); MEAN CORPUSCULAR VOLUME 87.4 fl (80.0-96.0); MONO # 0.5 K/mm3 (0.0-0.8); MONO % 7.1 % (0.0-5.0); NEUTROPHILS # 5.5 K/mm3 (1.8-7.7); NEUTROPHILS % 78.6 % (36.0-66.0); PLATELET COUNT, AUTOMATED 239 k/mm3 (150-450); RED CELL DISTRIBUTION WIDTH 13.2 % (11.5-14.5)
[2016-08-27] MEDS ORDERED: amLODIPine 5 MG TAB PO ONE (16:00)
[2016-08-27] MEDS ORDERED: OXAZEPAM 15 MG CAP PO ONE ×2 (16:00→19:15)
[2016-08-27] MEDS ORDERED: MULTIVITAMIN -ADULT INJECTION 10 ML, THIAMINE INJection 100 MG, FOLIC ACID 1 MG in NS 1... IV ONE ×2 (16:00→22:00)
[2016-08-27 16:11] LABS: INR 0.9
[2016-08-27 16:14] LABS: ALBUMIN 4.3 GM/DL (3.2-5.2); ALBUMIN/GLOBULIN RATIO 1.08 (1.00-1.93); ALKALINE PHOSPHATASE 77 U/L (45-117); ALT/SGPT 71 U/L (12-78); ANION GAP 11 MEQ/L (8-16); AST/SGOT 48 U/L (15-37); BILIRUBIN,DIRECT 0.2 MG/DL (0.0-0.2); BILIRUBIN,TOTAL 0.7 MG/DL (0.2-1.0); BLOOD UREA NITROGEN 7 MG/DL (7-18); CALCIUM LEVEL 9.6 MG/DL (8.5-10.1); CARBON DIOXIDE LEVEL 25 MEQ/L (21-32); CHLORIDE LEVEL 98 MEQ/L (98-107); CREATININE FOR GFR 0.83 MG/DL (0.70-1.30); GLOMERULAR FILTRATION RATE > 60.0 (>56); GLUCOSE, FASTING 131 MG/DL (70-105); POTASSIUM SERUM 3.6 MEQ/L (3.5-5.1); SODIUM LEVEL 134 MEQ/L (136-145); TOTAL PROTEIN 8.3 GM/DL (6.4-8.2)
[2016-08-27] MEDS ORDERED: GASTROGRAFIN SOLUTION 30ML PO ONE (16:25)
[2016-08-27] MEDS ORDERED: GASTROGRAFIN SOLUTION 30ML (Q9963) PO ONE (16:55)
[2016-08-27] MEDS ORDERED: LABETALOL 100 MG TAB PO ONE (17:30)
[2016-08-27] MEDS ORDERED: ISOVUE-370 76% 100ML VIAL (Q9967) As Ordered ONE (18:22)
--- NOTE | 2016-08-27 19:40 | REPUSA ---
CT of the abdomen and pelvis with contrast Clinical statement: Pain. Technique: Multiple axial CT images were obtained from the base of the lungs through the floor of the pelvis utilizing 5 mm axial slices after administration of oral and nonionic intravenous contrast. C oronal and sagittal reconstructions were also obtained. Comparison: 08/07/2016. Findings: Chest: The visualized lung bases are clear. Abdomen: The spleen, pancreas, kidneys, gallbladder, and adrenal glands are unremarkable. The liver d emonstrates mild diffuse low attenuation of the hepatic parenchyma. No focal masses are seen. The aor ta is within normal limits. There is no evidence of abdominal lymphadenopathy or ascites. Pelvis: The bowel demonstrates extensive diffuse diverticulosis. There is focal bowel wall thickening and inflammation surrounding the sigmoid colon, consistent with acute diverticulitis. The appendix i s normal. The urinary bladder is within normal limits. The other pelvic structures appear grossly int act. There is no evidence of pelvic lymphadenopathy or ascites. Bones: There are no suspicious osseous abnormalities seen. Chronic anterior compression wedge defect of T12 is appreciated. Impression: 1. Acute sigmoid diverticulitis. No evidence of abscess or perforation. Now bowel obstruction. 2. Mild diffuse fatty infiltration of the liver. 3. Chronic stable compression abnormality of T12. 4. The findings are overall stable in appearance since the prior examination of 08/07/2016.
[2016-08-27] MEDS ORDERED: ACETAMINOPHEN TAB 650MG DOSE (2X325MG) PO PRN (20:15)
[2016-08-27] MEDS ORDERED: POTASSIUM CHLORIDE 10 MEQ SR TABLET PO ONE (20:15)
[2016-08-27] MEDS ORDERED: ONDANSETRON 4MG/2ML VIAL (J2405) IV PRN (20:15)
[2016-08-27] MEDS ORDERED: OXAZEPAM 15 MG CAP PO PRN (20:15)
[2016-08-27] MEDS ORDERED: PERCOCET 5MG/325MG TAB PO PRN (20:15)
[2016-08-27] MEDS: LORazepam 2 MG/ML VIAL (J2060) IV PRN (20:55)
[2016-08-27] MEDS: hydrALAZINE INJ 20 MG/ML VIAL IV SCH (22:00)
[2016-08-28] VITALS (12 sets, daily range): BP systolic 125–174; BP diastolic 74–104
[2016-08-28] MEDS: OXAZEPAM 15 MG CAP PO SCH ×4 (00:06→19:12)
[2016-08-28] MEDS: LACTOBACILLUS ACIDOPHILUS CAP (BACID) GT SCH ×4 (01:10→22:27)
[2016-08-28] MEDS: LORazepam 2 MG/ML VIAL (J2060) IV PRN ×2 (01:10→04:22)
[2016-08-28] MEDS: hydrALAZINE INJ 20 MG/ML VIAL IV SCH ×6 (02:05→22:33)
[2016-08-28 06:50] LABS: MEAN CORPUSCULAR HEMOGLOBIN 30.4 pg (27.0-33.0); MEAN CORPUSCULAR HGB CONC 34.4 g/dl (32.0-36.5); MEAN CORPUSCULAR VOLUME 88.3 fl (80.0-96.0); RED CELL DISTRIBUTION WIDTH 13.5 % (11.5-14.5); WHITE BLOOD COUNT 5.6 K/mm3 (4.0-10.0)
[2016-08-28 07:05] LABS: ANION GAP 6 MEQ/L (8-16); BLOOD UREA NITROGEN 8 MG/DL (7-18); CALCIUM LEVEL 9.2 MG/DL (8.5-10.1); CARBON DIOXIDE LEVEL 27 MEQ/L (21-32); CHLORIDE LEVEL 104 MEQ/L (98-107); CREATININE FOR GFR 0.65 MG/DL (0.70-1.30); GLOMERULAR FILTRATION RATE > 60.0 (>56); GLUCOSE, FASTING 105 MG/DL (70-105); POTASSIUM SERUM 3.9 MEQ/L (3.5-5.1); SODIUM LEVEL 137 MEQ/L (136-145)
--- NOTE | 2016-08-28 07:50 | HPE ---
DATE OF ADMISSION: 08/27/2016 CHIEF COMPLAINT: Hypertension, shakiness, alcohol withdrawal. PRIMARY CARE PROVIDER: Jeffrey Martin MD HISTORY OF PRESENT ILLNESS: This is a 50-year-old male patient with underlying medical history of recurrent diverticulitis with left lower quadrant pain in the process of followup with Dr. Kumar for colonoscopy, hypertension, depression, anxiety, alcohol abuse, since yesterday reported anxiety having sensation that the blood pressure is high with headache and neck stiffness that comes and goes with near syncopal episode, generalized tremors, history of delirium tremens (DT) and seizures due to alcohol withdrawal. The patient last drank alcohol was on Wednesday, was cutting back on drinking. At baseline, drinks about 14 beers on most days. Denies any chest pain, pressure, discomfort, nausea or vomiting. Reported loose bowel movement, but not diarrhea. Poorly compliant at baseline. In the emergency department (ED), the patient was found to be hypertensive and also tremulous and tachycardiac in withdrawal, given Serax and request for hospitalist to be admitting the patient. ALLERGIES: No known drug allergies. PAST MEDICAL HISTORY: 1. Alcohol abuse with history of delirium tremens and seizure. 2. Recurrent diverticulitis. 3. Hypertension. 4. Depression. 5. Anxiety. PAST SURGICAL HISTORY: Right ear surgery, multiple bilateral knee surgery, kidney stone surgery. FAMILY HISTORY: The patient is adopted, unknown family history. REVIEW OF SYSTEMS: Reported left-sided abdominal pain, tremulous, anxious, headache, hypertension. All other review of systems is negative. HOME MEDICATION: - amitriptyline 10 mg by mouth daily - Norvasc 5 mg by mouth daily - fluoxetine 20 mg by mouth daily - lisinopril 20 mg by mouth daily PHYSICAL EXAMINATION: VITAL SIGNS: Temperature 97, pulse ranging from 110 to 95, respirations 20, blood pressure 182/122, pulse oximetry 96% on room air. GENERAL: The patient alert and oriented times three in no acute distress. HEENT: Normocephalic, atraumatic. Positive tongue escalation. Generalized tremulous. PULMONARY: Bilateral clear to auscultation. CARDIAC: Tachycardia. No murmurs detected. ABDOMEN: Soft, left-sided upper and lower quadrant mildly tender to palpation. No rebound, no guarding. Positive bowel sounds. EXTREMITIES: No edema in bilateral lower extremities. NEUROLOGIC: Bilateral upper extremity tremors with asterixis. LABORATORY: White blood count (WBC) 7, hemoglobin and hematocrit 15.8/44.7, platelets 239. Chemistry: Sodium 134, potassium 3.6, chloride 98, bicarbonate 25, BUN 7, creatine 0.8, lipase negative. ASSESSMENT AND PLAN: This is a 50-year-old male patient with underlying medical history of recurrent diverticulitis, hypertension, alcohol abuse with history of delirium tremens and alcohol withdrawal, depression and anxiety presented with hypertension and alcohol withdrawal. PROBLEMS: 1. Acute alcohol withdrawal, seizure precaution, withdrawal precaution, banana bag, thiamine, folate, multivitamins. Monitor for withdrawal. Serax standing and as needed, Ativan as needed, pressures. Supportive care. IV fluids. Counseling provided. Patient Family Services (PFS) consulted. 2. Hypertensive urgency likely secondary to alcohol withdrawal. Treatment for withdrawal as above. Continue blood pressure medication with Norvasc and lisinopril. Hydralazine for blood pressure greater than 160. Adjust blood pressure medication as needed. 3. Recurrent diverticulitis. CT scan appreciated. The patient has been treated with antibiotics. Currently, no white count. Able to tolerate oral. Making bowel movement. Bowel regimen is ordered. Needs outpatient followup with Dr. Kumar. Diet as tolerated. Probiotics, withholding antibiotics at this time given the diverticulitis is likely not infectious. Colonoscopy with Dr. Kumar. If the patient's condition worsens during this admission, will consult surgery, otherwise will need to followup with Dr. Kumar as an outpatient. 4. Depression/anxiety. Continue current medication. The patient is not suicidal or depressed at this time. 5. Deep vein thrombosis (DVT) prophylaxis. Lovenox subcutaneous. DISPOSITION: Pending clinical improvement.
[2016-08-28] MEDS: AMITRIPTYLINE 10 MG TAB PO SCH (08:41)
[2016-08-28] MEDS: FIBER-CON 625 MG TAB PO SCH ×3 (08:41→22:28)
[2016-08-28] MEDS: DOCUSATE SODIUM 100 MG CAP PO SCH ×3 (08:41→22:33)
[2016-08-28] MEDS: MULTIVITAMINS/MINERALS THERAP 1 TAB PO SCH (08:42)
[2016-08-28] MEDS: FLUoxetine 20 MG CAP PO SCH (08:42)
[2016-08-28] MEDS: PANTOPRAZOLE 40MG TAB (PROTONIX) PO SCH (08:42)
[2016-08-28] MEDS: LISINOPRIL 20 MG TAB PO SCH (08:42)
[2016-08-28] MEDS: FOLIC ACID 1 MG TAB PO SCH (08:42)
[2016-08-28] MEDS: amLODIPine 5 MG TAB PO SCH (08:42)
[2016-08-28] MEDS: ENOXAPARIN 40 MG/0.4 ML SYRINGE (J1650) SC SCH (08:43)
[2016-08-28] MEDS: THIAMINE 100 MG TAB PO SCH (08:43)
--- NOTE | 2016-08-28 13:19 | IPNPDOC ---
Subjective Date Seen The patient was seen on 08/28/16. Subjective Chief Complaint/HPI The patient is a 50-year-old male admitted with a reason for visit of Alcohol Dependence W/Withdrawal Delirium. Events since last encounter The patient states he feels better this morning. Slept well and tolerated breakfast well. Denies chest pain, palpitations, diaphoresis, tremors. nausea, vomiting, fever, chills. Admits to 2 loose bowel movements this morning - likely due to recurrent diverticulitis. General: Reports: Normal Appetite, Denies: Chills, Night Sweats, Fatigue, Malaise Constitutional: Denies: Chills, Fever, Malaise, Night Sweats, Weakness Eyes: Denies: Pain, Vision change ENT: Denies: Head Aches, Ear Pain, Dysphagia Skin: Denies: Rash, Lesions Pulmonary: Denies: Dyspnea, Cough Cardiovascular: Denies: Chest Pain, Palpitations, Orthopnea Gastrointestinal: Reports: Diarrhea, Denies: Nausea, Vomiting, Abdominal Pain, Constipation Genitourinary: Denies: Dysuria, Frequency, Incontinence Hematologic: Denies: Bruising, Bleeding Excessively Musculoskeletal: Denies: Neck Pain, Back Pain Neurological: Reports: Other Symptoms (b/l hand tremors), Denies: Weakness, Numbness Psych: Reports: Mood Normal Objective Physical Examination General Exam: Positive: Alert, Cooperative, No Acute Distress Eye Exam: Positive: PERRLA, Conjunctiva & lids normal, EOMI ENT Exam: Positive: Atraumatic, Mucous membr. moist/pink, Pharynx Normal Neck Exam: Positive: Supple Chest Exam: Positive: Clear to auscultation, Normal air movement Heart Exam: Positive: Tachycardic, Normal S1, Normal S2, Negative: Murmurs, Rubs Telemetry: Positive: Tachycardia Abdomen Exam: Positive: Normal bowel sounds, Soft, Tenderness (LUQ- no rebound ridgity, distension or guarding, soft, nabx4, no organomegaly-) Extremity Exam: Positive: Normal pulses, Negative: Clubbing, Cyanosis, Edema Skin Exam: Negative: Nl turgor and temperature, Rash, Breakdown Neuro Exam: Positive: Normal Speech, Other (b/l hand tremors, neg. asterixis) Psych Exam: Positive: Mental status NL, Mood NL, Oriented x 3 Assessment /Plan Problems (1) ALCOHOL DEPENDENCE WITH WITHDRAWAL DELIRIUM Status: Acute Problem Text: Stable. Pt did have some LUQ tenderness on PE today, abdomen was soft, non-distended, no rebound ridgity or guarding, nabsx4, no organomegaly-will continue to monitor The patient received a banana bag, thiamine, folate and multivitamins. pt states that he has [facility] out[facility] program for alcohol abuse that he will follow with outpt., states that he has tried other rehab programs in the past with no success It was offered to pt that we may assist him w/ outgoing therapy for his alcohol abuse-he states he will think/consider it c/w Serax PO 30mg q6h & Ativan is IV 2mg q2h PRN. BP is currently 135/79, HR 103. Will continue to monitor. (2) Hypertensive emergency Onset Date: 08/11/2013 Status: Acute Problem Text: Likely secondary to alcohol withdrawal - patient states his last drink was on Wednesday. BP this morning was 160/104 - the patient received hydralazine 5ml IV and is continuing with his home meds of norvasc and lisinopril. BP is currently 135/79 Stable Will continue to monitor. (3) Diverticulitis Status: Acute Problem Text: The patient currently does not have a leukocytosis and denies fever or chills. He is able to tolerate oral. Currently eating a normal diet. Antibiotics have been withheld at this time as he has received multiple course of cipro and flagyl, the most recent of which he completed about 3 days ago, for this recurrent/chronic diverticulitis and he is currently afebrile. The patient will be following up with Dr. Kumar outpatient to receive a colonoscopy. Currently stable. will continue to monitor. (4) Hypertension Status: Chronic Problem Text: BP 135/79 Stable c/w home meds Will continue to monitor. (5) Depression Status: Chronic Response to Treatment: Stable Problem Text: stable c/w home meds (6) Anxiety Status: Chronic Response to Treatment: Stable Problem Text: stable c/w home meds (7) DVT prophylaxis Status: Acute Response to Treatment: Stable Problem Text: Stable Currently receiving lovenox 40mg SC qd. Plan/VTE VTE Prophylaxis Ordered?: Yes VS, I&O, 24H, Fishbone Vital Signs/I&O Vital Signs Date Time Temp Pulse Resp B/P (MAP) Pulse Ox O2 Delivery O2 Flow Rate FiO2 08/28/16 09:44 149/77 (101) 08/28/16 08:42 108 08/28/16 07:31 98.5 08/28/16 07:31 18 96 Room Air I&O- Last 24 Hours up to 6 AM 08/28/16 05:59 Output Total 450 ml Balance -450 ml Laboratory Data 24H LABS Laboratory Tests 2 08/27/16 15:19: White Blood Count 7.0, Red Blood Count 5.12, Hemoglobin 15.8, Hematocrit 44.7, Mean Corpuscular Volume 87.4, Mean Corpuscular Hemoglobin 30.9, Mean Corpuscular Hemoglobin Concent 35.3, Red Cell Distribution Width 13.2, Platelet Count 239, Neutrophils (%) (Auto) 78.6H, Lymphocytes (%) (Auto) 12.1L, Monocytes (%) (Auto) 7.1H, Eosinophils (%) (Auto) 0.4, Basophils (%) (Auto) 0.7 , Neutrophils # (Auto) 5.5, Lymphocytes # (Auto) 0.9L, Monocytes # (Auto) 0.5, Eosinophils # (Auto) 0.0, Basophils # (Auto) 0.0, Large Unclassified Cells % 1.1 , Large Unclassified Cells # 0.1, Prothrombin Time 12.2L, Prothromb Time International Ratio 0.90, Activated Partial Thromboplast Time 25.9L, Anion Gap 11, Glomerular Filtration Rate > 60.0, Calcium Level 9.6, Aspartate Amino Transf (AST/SGOT) 48H, Alanine Aminotransferase (ALT/SGPT) 71, Alkaline Phosphatase 77, Total Bilirubin 0.7, Direct Bilirubin 0.2, Total Protein 8.3H, Albumin 4.3, Albumin/Globulin Ratio 1.08, Lipase 175, Ethyl Alcohol Level < 0.003 08/28/16 06:33: Anion Gap 6L, Glomerular Filtration Rate > 60.0, Calcium Level 9.2, Blood Urea Nitrogen 8, Creatinine 0.65L, Sodium Level 137, Potassium Level 3.9, Chloride Level 104, Carbon Dioxide Level 27, Magnesium Level 2.0 CBC/BMP Laboratory Tests 08/27/16 15:19 Red Blood Count 5.12, Mean Corpuscular Volume 87.4, Mean Corpuscular Hemoglobin 30.9, Mean Corpuscular Hemoglobin Concent 35.3, Red Cell Distribution Width 13.2 , Neutrophils (%) (Auto) 78.6 H, Lymphocytes (%) (Auto) 12.1 L, Monocytes (%) ( Auto) 7.1 H, Eosinophils (%) (Auto) 0.4, Basophils (%) (Auto) 0.7, Neutrophils # (Auto) 5.5, Lymphocytes # (Auto) 0.9 L, Monocytes # (Auto) 0.5, Eosinophils # (Auto) 0.0, Basophils # (Auto) 0.0 08/28/16 06:33 Red Blood Count 4.78, Mean Corpuscular Volume 88.3, Mean Corpuscular Hemoglobin 30.4, Mean Corpuscular Hemoglobin Concent 34.4, Red Cell Distribution Width 13.5 , Calcium Level 9.2 GME ATTESTATION GME ATTESTATION My preceptor for this patient encounter was physically present in the building during the encounter and was fully available. As needed, all aspects of the patient interview, examination, medical decision making process, and medical care plan development were reviewed and approved by the preceptor. Preceptor is aware and concurs with the plan as stated in the body of this note and will attest to such by his/her cosignature. BORIS ROMERO DO Aug 28, 2016 10:11 AUGUSTA SAMSON Aug 29, 2016 14:09
[2016-08-29] MEDS: OXAZEPAM 15 MG CAP PO SCH ×4 (00:39→21:44)
[2016-08-29] MEDS: hydrALAZINE INJ 20 MG/ML VIAL IV SCH ×6 (02:08→21:47)
[2016-08-29 05:47] VITALS: BP 151/82
[2016-08-29 06:35] LABS: MEAN CORPUSCULAR HEMOGLOBIN 30.6 pg (27.0-33.0); MEAN CORPUSCULAR HGB CONC 33.7 g/dl (32.0-36.5); MEAN CORPUSCULAR VOLUME 90.8 fl (80.0-96.0); RED CELL DISTRIBUTION WIDTH 13.2 % (11.5-14.5); WHITE BLOOD COUNT 5.2 K/mm3 (4.0-10.0)
[2016-08-29 06:55] LABS: ANION GAP 8 MEQ/L (8-16); BLOOD UREA NITROGEN 14 MG/DL (7-18); CARBON DIOXIDE LEVEL 24 MEQ/L (21-32); CHLORIDE LEVEL 104 MEQ/L (98-107); CREATININE FOR GFR 0.71 MG/DL (0.70-1.30); GLOMERULAR FILTRATION RATE > 60.0 (>56); GLUCOSE, FASTING 106 MG/DL (70-105); MAGNESIUM LEVEL 2.2 MG/DL (1.8-2.4); POTASSIUM SERUM 3.9 MEQ/L (3.5-5.1); SODIUM LEVEL 136 MEQ/L (136-145)
[2016-08-29 08:00] VITALS: BP 135/67
[2016-08-29] MEDS: DOCUSATE SODIUM 100 MG CAP PO SCH ×2 (09:34→21:44)
[2016-08-29] MEDS: FOLIC ACID 1 MG TAB PO SCH (09:34)
[2016-08-29] MEDS: MULTIVITAMINS/MINERALS THERAP 1 TAB PO SCH (09:34)
[2016-08-29] MEDS: FIBER-CON 625 MG TAB PO SCH ×2 (09:34→21:44)
[2016-08-29] MEDS: THIAMINE 100 MG TAB PO SCH (09:35)
[2016-08-29] MEDS: AMITRIPTYLINE 10 MG TAB PO SCH (09:35)
[2016-08-29] MEDS: PANTOPRAZOLE 40MG TAB (PROTONIX) PO SCH (09:35)
[2016-08-29] MEDS: FLUoxetine 20 MG CAP PO SCH (09:35)
[2016-08-29] MEDS: LACTOBACILLUS ACIDOPHILUS CAP (BACID) GT SCH ×3 (09:35→21:44)
[2016-08-29] MEDS: amLODIPine 5 MG TAB PO SCH (09:35)
[2016-08-29] MEDS: LISINOPRIL 20 MG TAB PO SCH (09:35)
[2016-08-29] MEDS: ENOXAPARIN 40 MG/0.4 ML SYRINGE (J1650) SC SCH (09:36)
[2016-08-29 12:00] VITALS: BP 134/83
--- NOTE | 2016-08-29 12:13 | IPNPDOC ---
Date Seen The patient was seen on 08/29/16. Progress Note Hospitalist Progress Note Subjective: Patient states that he is overall feeling well. He had trouble sleeping last night, but has no other complaints. Patient denies feeling anxious. He does, however, state that he will have to leave tomorrow since he is working tomorrow night. Objective: Physical Exam: Vitals: Vital Sign - Last 24 Hours 08/28/16 08/28/16 08/28/16 08/28/16 13:10 14:00 14:00 16:00 Temp 98.5 98.2 Pulse 113 114 104 Resp 18 18 B/P (MAP) 133/95 (108) 125/74 125/74 148/87 (107) Pulse Ox 96 96 O2 Delivery Room Air Room Air 08/28/16 08/28/16 08/28/16 08/28/16 19:17 19:51 22:33 23:59 Temp 99.2 98.5 Pulse 112 113 Resp 18 18 B/P (MAP) 148/98 140/97 (111) 139/92 147/91 (109) Pulse Ox 98 97 O2 Delivery Room Air Room Air 08/29/16 08/29/16 08/29/16 08/29/16 02:08 05:47 06:14 08:00 Temp 97.8 98.7 Pulse 93 100 Resp 18 18 B/P (MAP) 157/96 151/82 (105) 151/82 135/67 (89) Pulse Ox 97 97 O2 Delivery Room Air Room Air 08/29/16 08/29/16 08/29/16 09:35 09:35 12:00 Temp 98.5 Pulse 100 87 Resp 18 B/P (MAP) 135/67 135/67 134/83 (100) Pulse Ox 96 O2 Delivery Room Air General: Sleeping and snoring when I entered the room, but easily awakened. No acute distress. HEENT: Normocephalic, atraumatic, moist mucous membranes CV:. Regular Rate and rhythm Lungs: Clear to auscultation bilaterally Abd: Soft, nondistended, no rebound, mild tenderness to palpation in the left upper quadrant Extremities: No edema Neuro: Alert and oriented 3, normal speech Psych: Normal mood and affect Labs and Imaging: Laboratory Tests 08/29/16 05:47 Red Blood Count 4.53, Mean Corpuscular Volume 90.8, Mean Corpuscular Hemoglobin 30.6, Mean Corpuscular Hemoglobin Concent 33.7, Red Cell Distribution Width 13.2 , Calcium Level 9.0 Assessment and Plan: 50-year-old male with hypertension, depression/anxiety, recurrent diverticulitis , alcohol abuse with history of DTs and seizure, who presented to the emergency department with symptoms of alcohol withdrawal and accelerated hypertension. His last drink was approximately 48 hours prior to admission. 1. Alcohol withdrawal and delirium tremens: The patient's symptoms have been controlled with Serax 30 mg by mouth every 6 hours as well as one breakthrough dose of IV Ativan and one breakthrough dose of oral Serax. At this time, we will wean his Serax to 30 mg by mouth every 8 hours. Continue daily thiamine, folate, multivitamin. 2. Accelerated hypertension: I suspect this is secondary to his acute alcohol withdrawal. Continue home Norvasc and HAO inhibitor. Also continue as needed IV hydralazine. 3. Depression/anxiety: Continue home Elavil, Prozac. 4. Recurrent diverticulitis: The patient reports multiple recent courses of Cipro and Flagyl, the most recent finishing approximately 2-3 days prior to admission. He states he has been following this with his primary care physician , and he has an appointment scheduled to get a colonoscopy with Dr. Kumar. At this time, he is afebrile with a normal white count and minimal abdominal discomfort. We will hold off on any further antibiotics at this time, unless his clinical picture changes. Continue Bacid DVT prophylaxis: Lovenox Dispo: pending patient being able to wean off of the high doses of benzos he is currently receiving. The patient tells me that he is going to need to leave tomorrow, as he states he works tomorrow night and cannot financially afford to not work that shift. I advised him that I find it unlikely that I think he'll be ready to be discharged tomorrow, and encouraged him to switch that shift with a colleague. He seems uncertain that he wants to do this. VS, I&O, 24H, Fishbone Vital Signs/I&O Vital Signs Date Time Temp Pulse Resp B/P (MAP) Pulse Ox O2 Delivery O2 Flow Rate FiO2 08/29/16 12:00 98.5 87 18 134/83 (100) 96 Room Air I&O- Last 24 Hours up to 6 AM 08/29/16 06:00 Intake Total 1920 ml Output Total 475 ml Balance 1445 ml Laboratory Data 24H LABS Laboratory Tests 2 08/29/16 05:47: Anion Gap 8, Glomerular Filtration Rate > 60.0, Blood Urea Nitrogen 14#, Creatinine 0.71, Sodium Level 136, Potassium Level 3.9, Chloride Level 104, Carbon Dioxide Level 24, Calcium Level 9.0, Magnesium Level 2.2 CBC/BMP Laboratory Tests 08/29/16 05:47 Red Blood Count 4.53, Mean Corpuscular Volume 90.8, Mean Corpuscular Hemoglobin 30.6, Mean Corpuscular Hemoglobin Concent 33.7, Red Cell Distribution Width 13.2 , Calcium Level 9.0 AUGUSTA SAMSON Aug 29, 2016 12:13
[2016-08-29 16:00] VITALS: BP 140/74
[2016-08-29 20:35] VITALS: BP 136/85
[2016-08-29 23:43] VITALS: BP 142/88
[2016-08-30] VITALS (7 sets, daily range): BP systolic 118–145; BP diastolic 66–95
[2016-08-30] MEDS: hydrALAZINE INJ 20 MG/ML VIAL IV SCH ×5 (02:28→18:00)
[2016-08-30] MEDS: OXAZEPAM 15 MG CAP PO SCH (05:35)
[2016-08-30 06:10] LABS: MEAN CORPUSCULAR HEMOGLOBIN 30.5 pg (27.0-33.0); MEAN CORPUSCULAR VOLUME 89.7 fl (80.0-96.0); RED CELL DISTRIBUTION WIDTH 13.3 % (11.5-14.5); WHITE BLOOD COUNT 6.4 K/mm3 (4.0-10.0)
[2016-08-30 06:22] LABS: ANION GAP 8 MEQ/L (8-16); BLOOD UREA NITROGEN 15 MG/DL (7-18); CALCIUM LEVEL 8.8 MG/DL (8.5-10.1); CARBON DIOXIDE LEVEL 24 MEQ/L (21-32); CHLORIDE LEVEL 101 MEQ/L (98-107); CREATININE FOR GFR 0.66 MG/DL (0.70-1.30); GLOMERULAR FILTRATION RATE > 60.0 (>56); GLUCOSE, FASTING 87 MG/DL (70-105); MAGNESIUM LEVEL 2.2 MG/DL (1.8-2.4); POTASSIUM SERUM 3.9 MEQ/L (3.5-5.1); SODIUM LEVEL 133 MEQ/L (136-145)
[2016-08-30] MEDS: DOCUSATE SODIUM 100 MG CAP PO SCH ×2 (10:20→20:59)
[2016-08-30] MEDS: LISINOPRIL 20 MG TAB PO SCH (10:22)
[2016-08-30] MEDS: LACTOBACILLUS ACIDOPHILUS CAP (BACID) GT SCH ×3 (10:23→20:59)
[2016-08-30] MEDS: THIAMINE 100 MG TAB PO SCH (10:24)
[2016-08-30] MEDS: FOLIC ACID 1 MG TAB PO SCH (10:24)
[2016-08-30] MEDS: AMITRIPTYLINE 10 MG TAB PO SCH (10:25)
[2016-08-30] MEDS: amLODIPine 5 MG TAB PO SCH (10:25)
[2016-08-30] MEDS: MULTIVITAMINS/MINERALS THERAP 1 TAB PO SCH (10:25)
[2016-08-30] MEDS: PANTOPRAZOLE 40MG TAB (PROTONIX) PO SCH (10:25)
[2016-08-30] MEDS: ENOXAPARIN 40 MG/0.4 ML SYRINGE (J1650) SC SCH (10:26)
[2016-08-30] MEDS: FIBER-CON 625 MG TAB PO SCH ×2 (10:26→21:00)
[2016-08-30] MEDS: FLUoxetine 20 MG CAP PO SCH (10:26)
[2016-08-30] MEDS ORDERED: SLF 3 ML SYR IV PRN (11:00)
--- NOTE | 2016-08-30 12:44 | IPNPDOC ---
Date Seen The patient was seen on 08/30/16. Progress Note Hospitalist Progress Note Subjective: Patient states that he is overall feeling well. He had trouble sleeping last night, but has no other complaints. Patient denies feeling anxious. He is reconsidering staying today. Objective: Physical Exam: Vitals: Vital Sign - Last 24 Hours 08/29/16 08/29/16 08/29/16 08/29/16 16:00 20:35 21:47 23:43 Temp 99.9 98.8 99.9 Pulse 99 92 95 Resp 18 18 18 B/P (MAP) 140/74 (96) 136/85 (102) 177/109 142/88 (106) Pulse Ox 97 98 97 O2 Delivery Room Air Room Air Room Air 08/30/16 08/30/16 08/30/16 08/30/16 02:28 05:00 05:35 08:00 Temp 98.1 97.2 Pulse 81 87 Resp 18 18 B/P (MAP) 141/94 145/95 (112) 145/95 118/66 (83) Pulse Ox 96 98 O2 Delivery Room Air Room Air 08/30/16 08/30/16 08/30/16 08/30/16 10:22 10:25 12:00 12:02 Temp 98.9 Pulse 90 91 98 Resp 18 B/P (MAP) 130/84 130/84 124/66 (85) 124/66 Pulse Ox 98 O2 Delivery Room Air General: Sleeping and snoring when I entered the room, but easily awakened. No acute distress. HEENT: Normocephalic, atraumatic, moist mucous membranes CV:. Regular Rate and rhythm Lungs: Clear to auscultation bilaterally Abd: Soft, nondistended, no rebound, nontender Extremities: No edema Neuro: Alert and oriented 3, normal speech Psych: Normal mood and affect Labs and Imaging: Laboratory Tests 08/30/16 05:28 Red Blood Count 4.46, Mean Corpuscular Volume 89.7, Mean Corpuscular Hemoglobin 30.5, Mean Corpuscular Hemoglobin Concent 34.0, Red Cell Distribution Width 13.3 , Calcium Level 8.8 Assessment and Plan: 50-year-old male with hypertension, depression/anxiety, recurrent diverticulitis , alcohol abuse with history of DTs and seizure, who presented to the emergency department with symptoms of alcohol withdrawal and accelerated hypertension. His last drink was approximately 48 hours prior to admission. 1. Alcohol withdrawal and delirium tremens: The patient's symptoms have been controlled with Serax 30 mg by mouth every 8 hours and no breakthrough doses. At this time, we will wean his Serax to 20 mg by mouth every 8 hours. Continue daily thiamine, folate, multivitamin. 2. Accelerated hypertension: I suspect this is secondary to his acute alcohol withdrawal. Continue home Norvasc and HAO inhibitor. Also continue as needed IV hydralazine. 3. Depression/anxiety: Continue home Elavil, Prozac. 4. Recurrent diverticulitis: The patient reports multiple recent courses of Cipro and Flagyl, the most recent finishing approximately 2-3 days prior to admission. He states he has been following this with his primary care physician , and he has an appointment scheduled to get a colonoscopy with Dr. Kumar. At this time, he is afebrile with a normal white count and minimal abdominal discomfort. We will hold off on any further antibiotics at this time, unless his clinical picture changes. Continue Bacid DVT prophylaxis: Lovenox Dispo: pending patient being able to wean off of the high doses of benzos he is currently receiving. 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 We discussed the risk and benefits of leaving and staying, including the risk of from EtOH withdrawal if he leaves, and he expresses understanding. VS, I&O, 24H, Fishbone Vital Signs/I&O Vital Signs Date Time Temp Pulse Resp B/P (MAP) Pulse Ox O2 Delivery O2 Flow Rate FiO2 08/30/16 12:02 98 124/66 08/30/16 12:00 98.9 18 98 Room Air I&O- Last 24 Hours up to 6 AM 08/30/16 06:00 Intake Total 840 ml Output Total 50 ml Balance 790 ml Laboratory Data 24H LABS Laboratory Tests 2 08/30/16 05:28: Anion Gap 8, Glomerular Filtration Rate > 60.0, Blood Urea Nitrogen 15, Creatinine 0.66L, Sodium Level 133L, Potassium Level 3.9, Chloride Level 101, Carbon Dioxide Level 24, Calcium Level 8.8, Magnesium Level 2.2 CBC/BMP Laboratory Tests 08/30/16 05:28 Red Blood Count 4.46, Mean Corpuscular Volume 89.7, Mean Corpuscular Hemoglobin 30.5, Mean Corpuscular Hemoglobin Concent 34.0, Red Cell Distribution Width 13.3 , Calcium Level 8.8 AUGUSTA SAMSON Aug 30, 2016 12:44
[2016-08-30] MEDS: SLF 3 ML SYR IV SCH ×2 (14:00→20:59)
[2016-08-30] MEDS: OXAZEPAM 10 MG CAP PO SCH ×2 (17:22→20:59)
[2016-08-31 00:15] VITALS: BP 130/80
[2016-08-31 05:46] LABS: MEAN CORPUSCULAR HEMOGLOBIN 30.5 pg (27.0-33.0); MEAN CORPUSCULAR HGB CONC 33.7 g/dl (32.0-36.5); MEAN CORPUSCULAR VOLUME 90.5 fl (80.0-96.0); RED CELL DISTRIBUTION WIDTH 13.3 % (11.5-14.5); WHITE BLOOD COUNT 6.3 K/mm3 (4.0-10.0)
[2016-08-31] MEDS: **hydrALAZINE HCL** 25 MG TAB PO SCH ×3 (05:46→12:14)
[2016-08-31 05:50] VITALS: BP 122/72
[2016-08-31] MEDS: OXAZEPAM 10 MG CAP PO SCH (05:56)
[2016-08-31] MEDS: SLF 3 ML SYR IV SCH (05:57)
[2016-08-31 06:01] LABS: ANION GAP 6 MEQ/L (8-16); BLOOD UREA NITROGEN 17 MG/DL (7-18); CALCIUM LEVEL 8.5 MG/DL (8.5-10.1); CARBON DIOXIDE LEVEL 24 MEQ/L (21-32); CHLORIDE LEVEL 105 MEQ/L (98-107); CREATININE FOR GFR 0.66 MG/DL (0.70-1.30); GLOMERULAR FILTRATION RATE > 60.0 (>56); GLUCOSE, FASTING 96 MG/DL (70-105); MAGNESIUM LEVEL 2.4 MG/DL (1.8-2.4); POTASSIUM SERUM 3.9 MEQ/L (3.5-5.1); SODIUM LEVEL 135 MEQ/L (136-145)
--- NOTE | 2016-08-31 07:51 | ECGEPIP ---
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
[2016-08-31] MEDS: AMITRIPTYLINE 10 MG TAB PO SCH (10:12)
[2016-08-31] MEDS: DOCUSATE SODIUM 100 MG CAP PO SCH (10:12)
[2016-08-31] MEDS: FIBER-CON 625 MG TAB PO SCH (10:12)
[2016-08-31] MEDS: MULTIVITAMINS/MINERALS THERAP 1 TAB PO SCH (10:12)
[2016-08-31] MEDS: amLODIPine 5 MG TAB PO SCH (10:13)
[2016-08-31] MEDS: FLUoxetine 20 MG CAP PO SCH (10:14)
[2016-08-31] MEDS: LACTOBACILLUS ACIDOPHILUS CAP (BACID) GT SCH (10:14)
[2016-08-31] MEDS: FOLIC ACID 1 MG TAB PO SCH (10:14)
[2016-08-31] MEDS: THIAMINE 100 MG TAB PO SCH (10:14)
[2016-08-31] MEDS: PANTOPRAZOLE 40MG TAB (PROTONIX) PO SCH (10:15)
[2016-08-31] MEDS: LISINOPRIL 20 MG TAB PO SCH (10:15)
[2016-08-31] MEDS: ENOXAPARIN 40 MG/0.4 ML SYRINGE (J1650) SC SCH (10:16)
[2016-08-31 12:14] VITALS: BP 139/85
[2016-08-31] MEDS ORDERED: BACITAB PO (12:50)
[2016-08-31] MEDS ORDERED: FOLI1TAB4 PO (12:50)
[2016-08-31] MEDS ORDERED: VITMTA PO (12:50)
[2016-08-31] MEDS ORDERED: THIA100TA PO (12:50)
[2016-08-31] MEDS ORDERED: OXAZ10CA3 PO (12:50)
--- NOTE | 2016-08-31 12:53 | DS.PDOC ---
Discharge Summary General Date of Admission Aug 27, 2016 at 20:11 Date of Discharge 08/31/2016 Discharge Summary DISCHARGE SUMMARY DATE OF ADMISSION: 08/28/2016 DATE OF DISCHARGE: 08/31/2016 PRIMARY CARE PHYSICIAN: Dr. Martin DISCHARGE DIAGNOS(E)S: Alcohol withdrawal with DTs Accelerated hypertension HPI & HOSPITAL COURSE: 50-year-old male with hypertension, depression/anxiety, recurrent diverticulitis , alcohol abuse with history of DTs and seizure, who presented to the emergency department with symptoms of alcohol withdrawal and accelerated hypertension. His last drink was approximately 48 hours prior to admission. 1. Alcohol withdrawal and delirium tremens: The patient's symptoms have been controlled with Serax 20 mg by mouth every 8 hours and no breakthrough doses for the past 48H, despite steadily weaning down. At this time, we will wean his Serax to 10 mg by mouth every 8 hours through today, then BID for tomorrow, then once on Wednesday, then stop. He tells me that he has quit for good and that he has a support group at his [facility] that he is working with. He also changed jobs to remove himself from a work environment where alcohol was served. We discussed the risks of drinking any alcohol while on the serax for the next couple days, and he expresses understanding and states that he will not be drinking at all. Continue daily thiamine, folate, multivitamin. 2. Accelerated hypertension: I suspect this is secondary to his acute alcohol withdrawal. Now much improved. Continue home Norvasc and HAO inhibitor. Needs to follow up with PCP. 3. Depression/anxiety: Continue home Elavil, Prozac. 4. Recurrent diverticulitis: The patient reports multiple recent courses of Cipro and Flagyl, the most recent finishing approximately 2-3 days prior to admission. He states he has been following this with his primary care physician , and he has an appointment scheduled to get a colonoscopy with Dr. Kumar. At this time, he is afebrile with a normal white count and minimal abdominal discomfort. We will hold off on any further antibiotics at this time, unless his clinical picture changes. Continue Bacid DVT prophylaxis: Lovenox PHYSICAL EXAMINATION ON DISCHARGE: VITAL SIGNS: Vital Sign - Last 24 Hours 08/30/16 08/30/16 08/30/16 08/30/16 14:00 16:00 20:50 20:51 Temp 98.9 Pulse 92 92 Resp 18 B/P (MAP) 126/83 143/80 (101) 141/89 Pulse Ox 100 O2 Delivery Room Air Room Air 08/30/16 08/31/16 08/31/16 08/31/16 22:07 00:00 00:15 05:46 Temp 98.2 Pulse 92 Resp 16 B/P (MAP) 141/89 (106) 130/80 130/80 (97) 122/72 Pulse Ox 98 O2 Delivery Room Air 08/31/16 08/31/16 08/31/16 08/31/16 05:50 10:13 10:15 12:14 Temp 97.4 Pulse 71 77 Resp 18 B/P (MAP) 122/72 (89) 150/88 150/88 139/85 Pulse Ox 97 O2 Delivery Room Air General: awake, alert, No acute distress. HEENT: Normocephalic, atraumatic, moist mucous membranes CV:. Regular Rate and rhythm Lungs: Clear to auscultation bilaterally Abd: Soft, nondistended, no rebound, nontender Extremities: No edema Neuro: Alert and oriented 3, normal speech Psych: Normal mood and affect DISPOSITION: Home Patient was given a note to take to his place of employment that states he was admitted to the hospital and under my care from 08/28/2016 to 08/31/2016. DISCHARGE INSTRUCTIONS: Follow-up with PCP Dr. Martin within 1 week. Keep scheduled appointment with Dr. Kumar. Continue to follow closely with [facility] support group at your [facility]. Do not drink any alcohol, particularly while taking the Serax. If symptoms return, or if you experience worsening of your symptoms, please call your doctor or return to the emergency department. ITEMS THAT NEED OUTPATIENT FOLLOWUP: Blood pressure check with PCP, continued follow-up with Dr. Kumar for recurrent diverticulitis Patient was seen and examined by me on the day of discharge, and I spent a total time of greater than 30 minutes on this discharge. Vital Signs/I&Os Vital Signs Date Time Temp Pulse Resp B/P (MAP) Pulse Ox O2 Delivery O2 Flow Rate FiO2 08/31/16 12:14 139/85 08/31/16 10:13 77 08/31/16 05:50 97.4 18 97 Room Air I&O- Last 24 Hours up to 6 AM 08/31/16 05:59 Intake Total 2360 ml Output Total 0 ml Balance 2360 ml Laboratory Data Labs 24H Laboratory Tests 2 08/31/16 05:33: Anion Gap 6L, Glomerular Filtration Rate > 60.0, Blood Urea Nitrogen 17, Creatinine 0.66L, Sodium Level 135L, Potassium Level 3.9, Chloride Level 105, Carbon Dioxide Level 24, Calcium Level 8.5, Magnesium Level 2.4 CBC/BMP Laboratory Tests 08/31/16 05:33 Red Blood Count 4.30, Mean Corpuscular Volume 90.5, Mean Corpuscular Hemoglobin 30.5, Mean Corpuscular Hemoglobin Concent 33.7, Red Cell Distribution Width 13.3 , Calcium Level 8.5 Discharge Medications Scheduled Amitriptyline HCl (Amitriptyline HCl) 10 Mg Tab, 10 MG PO DAILY, (Reported) Amlodipine Besylate (Amlodipine Besylate) 5 Mg Tab, 5 MG PO DAILY, (Reported) Fluoxetine Hcl (Fluoxetine) 20 Mg Cap, 20 MG PO DAILY, (Reported) Folic Acid (Folic Acid) 1 Mg Tab, 1 MG PO DAILY Lactobacillus Acidophilus (Bacid) 1 Tab Tab, 1 TAB PO BID Lisinopril (Lisinopril) 20 Mg Tab, 20 MG PO DAILY, (Reported) Multivitamins *[facility] STOCK[facility]* (Thera M Plus *[facility] STOCK[facility]*) 1 Tab Tab, 1 TAB PO DAILY Oxazepam (Oxazepam) 10 Mg Cap, 10 MG PO Q12H Take 1st pill 08/31 at 10pm, 2nd pill 09/01 at 10am, 3rd pill 09/01 at 10pm, and 4th pill 09/02 at 10am then stop. Thiamine Hcl (Thiamine Hcl) 100 Mg Tab, 100 MG PO DAILY Allergies Coded Allergies: No Known Drug Allergy (Verified Allergy, Unknown, 05/13/16) AUGUSTA SAMSON Aug 31, 2016 12:53
[2016-08-31] MEDS ORDERED: OXAZEPAM 10 MG CAP PO SCH (14:00)
== END 2016-08-31 16:22 | disposition home or self-care (01) | DRG 775 ==
LOC: M ED 14:55 → M ED INP 20:11 → M PCU 08-28 13:10 → M MSPAV 08-30 20:44
PROVIDERS: ADMIT Hospitalist; ATTEND Hospitalist
DX: F10.231 Alcohol dependence with withdrawal delirium (principal); K57.32 Diverticulitis of large intestine without perforation or abscess without bleeding; I16.0 Hypertensive urgency; F32.9 Major depressive disorder, single episode, unspecified; I10 Essential (primary) hypertension; F41.9 Anxiety disorder, unspecified; Z79.891 Long term (current) use of opiate analgesic; Z79.899 Other long term (current) drug therapy

== ENCOUNTER 2017-01-09 10:26 | Emergency (ER) | payer OTHER ==
[~2017-01-09] VITALS: Ht 175.3 cm; Wt 100.0 kg
[~2017-01-09 10:26] MED LIST changes: +BACITAB PO
[2017-01-09] MEDS ORDERED: ASPIRIN 81 MG CHEW TABLET PO ONE (10:45)
--- NOTE | 2017-01-09 10:55 | ECGEPIP ---
Stationary ECG Study [facility] - ED Test Date: 2017-01-09 Pat Name: NAMAN HARPER Department: Room: - Gender: M Practice Billing Associate: : 1965 Requested By: LEONA Escobar Order Number: [id number] Reading MD: Michaelle Reyes Measurements Intervals [place] Rate: 82 P: 17 [place]: 155 QRS: 24 QRSD: 80 T: 59 QT: 372 QTc: 436 Interpretive Statements SINUS RHYTHM DELAYED R PROGRESSION PRIOR INFERIOR INFARCT DECREASED RATE 08/27/16 Electronically Signed On 01-09-2017 10:54:49 EST by Michaelle Reyes
--- NOTE | 2017-01-09 11:00 | REP ---
Chest one-view HISTORY: Chest pain Comparison: 05/13/2016 Linear densities are present in the right lower lobe consistent with atelectasis or scar. The left lung is clear. The heart is upper limits of normal in size. The pulmonary vasculature is normal in appearance. Impression: Right lower lobe atelectasis or scar. Signed by Francesco Shields MD 01/09/2017 10:51 A
[2017-01-09 11:03] LABS: BASO % 0.5 % (0.0-1.0); EOS # 0.2 10^3/uL (0.0-0.50); EOS % 2.6 % (0.0-3.0); IMMATURE GRANULOCYTE % 0.5 % (0-0); LYMPH # 1.9 10^3/uL (1.5-4.5); MEAN CORPUSCULAR HEMOGLOBIN 29.8 pg (27.0-33.0); MEAN CORPUSCULAR HGB CONC 33.9 g/dl (32.0-36.5); MEAN CORPUSCULAR VOLUME 87.9 fl (80.0-96.0); MONO # 0.6 10^3/uL (0.0-0.8); MONO % 9.8 % (0.0-5.0); NEUTROPHILS # 3.2 10^3/uL (1.8-7.7); NEUTROPHILS % 54.6 % (36.0-66.0); PLATELET COUNT, AUTOMATED 225 10^3/uL (150-450); RED CELL DISTRIBUTION WIDTH 12.6 % (11.5-14.5); WHITE BLOOD COUNT 5.8 10^3/uL (4.0-10.0)
[2017-01-09 11:21] LABS: ANION GAP 8 MEQ/L (8-16); BLOOD UREA NITROGEN 12 MG/DL (7-18); CALCIUM LEVEL 8.5 MG/DL (8.5-10.1); CARBON DIOXIDE LEVEL 26 MEQ/L (21-32); CHLORIDE LEVEL 105 MEQ/L (98-107); CREATININE FOR GFR 0.73 MG/DL (0.70-1.30); GLOMERULAR FILTRATION RATE > 60.0 (>56); GLUCOSE, FASTING 99 MG/DL (70-105); POTASSIUM SERUM 3.9 MEQ/L (3.5-5.1); SODIUM LEVEL 139 MEQ/L (136-145)
[2017-01-09] MEDS ORDERED: ISOVUE-370 76% 100ML VIAL (Q9967) As Ordered ONE (11:33)
--- NOTE | 2017-01-09 13:23 | REP ---
CT ANGIO CHEST: HISTORY: Rule out pulmonary embolism. CONTRAST: Isovue-370, 75 mL There are no filling defects in the main, right and left pulmonary arteries or their branches. The lungs are clear. There is no pleural effusion. The heart is normal in size. Small lymph nodes less than 1 cm in size are present in the mediastinum. Degenerative change is present in the spine. IMPRESSION: There is no pulmonary embolism. Signed by Francesco Shields MD 01/09/2017 01:49 P
[2017-01-09] MEDS ORDERED: LORazepam 1 MG TAB PO STA (16:00)
[2017-01-09 16:04] VITALS: BP 172/120
--- NOTE | 2017-01-09 17:52 | ECGEPIP ---
Stationary ECG Study [facility] - ED Test Date: 2017-01-09 Pat Name: NAMAN HARPER Department: Room: - Gender: M Ritual Circumciser: rafael : 1965 Requested By: LEONA Escobar Order Number: [id number] Reading MD: Michaelle Reyes Measurements Intervals [place] Rate: 86 P: 49 [place]: 146 QRS: 34 QRSD: 90 T: 40 QT: 376 QTc: 451 Interpretive Statements SINUS RHYTHM DELAYED R RPOGRESSION SIMILAR 01/09/17 Electronically Signed On 01-09-2017 17:52:28 EST by Michaelle Reyes
== END 2017-01-09 16:17 | disposition home or self-care (01) ==
LOC: M ED 10:26
DX: R07.9 Chest pain, unspecified (principal); I10 Essential (primary) hypertension; F41.9 Anxiety disorder, unspecified; F32.9 Major depressive disorder, single episode, unspecified; M54.9 Dorsalgia, unspecified; K57.92 Diverticulitis of intestine, part unspecified, without perforation or abscess without bleeding; J45.909 Unspecified asthma, uncomplicated; Z87.442 Personal history of urinary calculi; Z79.899 Other long term (current) drug therapy
CPT/HCPCS: 36415; 71010; 71275; 80048; 82550; 82553; 83880; 85025; 85730; 93000; 93041; 94760; 99285; Q9967

== ENCOUNTER 2017-02-02 00:09 | Emergency (ER) | payer OTHER ==
[~2017-02-02] VITALS: Ht 175.3 cm; Wt 100.0 kg
[2017-02-02] MEDS ORDERED: PHENobarbital 30 MG TAB PO ONE (02:00)
[2017-02-02 02:40] VITALS: BP 195/107
== END 2017-02-02 02:42 | disposition home or self-care (01) ==
LOC: M ED 00:09
DX: F10.288 Alcohol dependence with other alcohol-induced disorder (principal); I10 Essential (primary) hypertension; Z87.442 Personal history of urinary calculi; Z79.899 Other long term (current) drug therapy

== ENCOUNTER 2017-06-10 18:59 | Emergency (ER) | payer OTHER | END 2017-06-10 21:14 | disposition home or self-care (01) | LOC: M ED 18:59 | DX: F10.129 Alcohol abuse with intoxication, unspecified (principal); I10 Essential (primary) hypertension; Z87.891 Personal history of nicotine dependence; Z79.899 Other long term (current) drug therapy | CPT/HCPCS: 99282 ==

== ENCOUNTER 2017-07-20 09:33 | Inpatient (IN) | payer OTHER ==
[2017-07-20] MEDS: MULTIVITAMINS/MINERALS THERAP 1 TAB PO (09:00)
[2017-07-20 10:16] LABS: BASO % 0.3 % (0.0-1.0); EOS # 0.1 10^3/uL (0.0-0.50); EOS % 1.1 % (0.0-3.0); HEMATOCRIT 42.6 % (42.0-52.0); HEMOGLOBIN 14.4 g/dl (13.5-17.5); IMMATURE GRANULOCYTE % 0.3 % (0-3.0); LYMPH # 1.2 10^3/uL (1.5-4.5); LYMPH % 18.7 % (24.0-44.0); MEAN CORPUSCULAR HEMOGLOBIN 28.9 pg (27.0-33.0); MEAN CORPUSCULAR HGB CONC 33.8 g/dl (32.0-36.5); MEAN CORPUSCULAR VOLUME 85.5 fl (80.0-96.0); MONO # 0.4 10^3/uL (0.0-0.8); MONO % 6.2 % (0.0-5.0); NEUTROPHILS # 4.6 10^3/uL (1.8-7.7); NEUTROPHILS % 73.4 % (36.0-66.0); PLATELET COUNT, AUTOMATED 181 10^3/uL (150-450); RED BLOOD COUNT 4.98 10^6/uL (4.30-6.10); RED CELL DISTRIBUTION WIDTH 12.9 % (11.5-14.5); WHITE BLOOD COUNT 6.3 10^3/uL (4.0-10.0)
[2017-07-20 10:41] LABS: LACTIC ACID SEPSIS PROTOCOL 2.4 MMOL/L (0.4-2.0)
[2017-07-20 10:47] LABS: ANION GAP 10 MEQ/L (8-16); BLOOD UREA NITROGEN 12 MG/DL (7-18); CALCIUM LEVEL 8.1 MG/DL (8.5-10.1); CARBON DIOXIDE LEVEL 26 MEQ/L (21-32); CHLORIDE LEVEL 106 MEQ/L (98-107); CREATININE FOR GFR 0.72 MG/DL (0.70-1.30); GLOMERULAR FILTRATION RATE > 60.0 (>56); GLUCOSE, FASTING 103 MG/DL (70-100); POTASSIUM SERUM 3.8 MEQ/L (3.5-5.1); SODIUM LEVEL 142 MEQ/L (136-145)
[2017-07-20] MEDS: hydrALAZINE INJ 20 MG/ML VIAL IV ×3 (10:52→18:16)
[2017-07-20] MEDS: PERCOCET 5MG/325MG TAB PO (11:40)
[2017-07-20] MEDS: LORazepam 2 MG/ML VIAL (J2060) IV ×3 (12:31→21:51)
[2017-07-20] MEDS: KETOROLAC 30 MG/ML VIAL (J1885) IV (14:54)
[2017-07-20 15:10] LABS: KETONE, URINE AUTO RFX 1+ mg/dL (NEGATIVE); LEUKOCYTE ESTERASE UR AUTO RFX NEGATIVE (NEGATIVE); MUCUS, URINE RFX SMALL (NEGATIVE); NITRITE, URINE AUTO RFX NEGATIVE (NEGATIVE); RBC, URINE AUTO RFX 0 /HPF (0-3); SQUAM EPITHELIAL CELL UR AURFX 0 /HPF (0-6); WBC, URINE AUTO RFX 0 /HPF (0-3)
[2017-07-20] MEDS: NS 1,000 ML IV ×2 (16:00→21:57)
[2017-07-20] MEDS ORDERED: **hydrALAZINE HCL** 25 MG TAB PO (18:00)
[2017-07-20] MEDS: OXAZEPAM 10 MG CAP PO ×2 (18:00→22:18)
[2017-07-20] MEDS: ONDANSETRON 4MG/2ML VIAL (J2405) IV (21:52)
[2017-07-20] MEDS: ACETAMINOPHEN TAB 650MG DOSE (2X325MG) PO (21:58)
[2017-07-20] MEDS: ENOXAPARIN 40 MG/0.4 ML SYRINGE (J1650) SC (22:15)
[2017-07-20] MEDS: **hydrALAZINE HCL** 25 MG TAB PO (22:17)
[2017-07-20] MEDS: THIAMINE 100 MG TAB PO (22:22)
[2017-07-20] MEDS: FLUoxetine 20 MG CAP PO (22:39)
[2017-07-20] MEDS: FOLIC ACID 1 MG TAB PO (22:39)
[2017-07-20] MEDS: LISINOPRIL 20 MG TAB PO (22:39)
[2017-07-20] MEDS: LORazepam 2 MG TAB PO (23:41)
[2017-07-21 04:56] LABS: HEMATOCRIT 42.6 % (42.0-52.0); MEAN CORPUSCULAR HEMOGLOBIN 28.6 pg (27.0-33.0); MEAN CORPUSCULAR HGB CONC 32.9 g/dl (32.0-36.5); MEAN CORPUSCULAR VOLUME 87.1 fl (80.0-96.0); PLATELET COUNT, AUTOMATED 157 10^3/uL (150-450); RED BLOOD COUNT 4.89 10^6/uL (4.30-6.10); RED CELL DISTRIBUTION WIDTH 12.9 % (11.5-14.5); WHITE BLOOD COUNT 7.4 10^3/uL (4.0-10.0)
[2017-07-21 05:35] LABS: ALBUMIN 3.3 GM/DL (3.2-5.2); ALBUMIN/GLOBULIN RATIO 0.92 (1.00-1.93); ALKALINE PHOSPHATASE 68 U/L (45-117); ALT/SGPT 54 U/L (12-78); ANION GAP 9 MEQ/L (8-16); AST/SGOT 36 U/L (7-37); BILIRUBIN,TOTAL 0.9 MG/DL (0.2-1.0); BLOOD UREA NITROGEN 14 MG/DL (7-18); CALCIUM LEVEL 8.1 MG/DL (8.5-10.1); CARBON DIOXIDE LEVEL 26 MEQ/L (21-32); CHLORIDE LEVEL 107 MEQ/L (98-107); CREATININE FOR GFR 0.69 MG/DL (0.70-1.30); GLOMERULAR FILTRATION RATE > 60.0 (>56); GLUCOSE, FASTING 101 MG/DL (70-100); MAGNESIUM LEVEL 2.1 MG/DL (1.8-2.4); POTASSIUM SERUM 3.8 MEQ/L (3.5-5.1); SODIUM LEVEL 142 MEQ/L (136-145); TOTAL PROTEIN 6.9 GM/DL (6.4-8.2)
[2017-07-21] MEDS: **hydrALAZINE HCL** 25 MG TAB PO ×2 (05:48→12:08)
[2017-07-21] MEDS: OXAZEPAM 10 MG CAP PO ×3 (05:48→17:47)
[2017-07-21] MEDS: NS 1,000 ML IV ×3 (05:49→19:52)
[2017-07-21] MEDS: FOLIC ACID 1 MG TAB PO (08:23)
[2017-07-21] MEDS: THIAMINE 100 MG TAB PO (08:23)
[2017-07-21] MEDS: LISINOPRIL 20 MG TAB PO (08:24)
[2017-07-21] MEDS: FLUoxetine 20 MG CAP PO (08:24)
[2017-07-21] MEDS: MULTIVITAMINS/MINERALS THERAP 1 TAB PO (08:24)
[2017-07-21 08:41] LABS: LACTIC ACID SEPSIS PROTOCOL 0.5 MMOL/L (0.4-2.0)
[2017-07-21] MEDS ORDERED: MULTIVITAMINS/MINERALS THERAP 1 TAB PO (09:00)
[2017-07-21] MEDS ORDERED: LORazepam 2 MG/ML VIAL (J2060) IV (09:00)
[2017-07-21] MEDS ORDERED: PRENATAL VITAMINS CHEWABLE TABLET PO (09:00)
[2017-07-21] MEDS: LABETALOL HCL 100 MG/20 ML VIAL IV ×2 (13:44→17:49)
[2017-07-21] MEDS: LORazepam 2 MG TAB PO (23:56)
[2017-07-21] MEDS: ENOXAPARIN 40 MG/0.4 ML SYRINGE (J1650) SC (23:57)
[2017-07-22] MEDS: NS 1,000 ML IV ×2 (02:13→08:22)
[2017-07-22] MEDS: OXAZEPAM 10 MG CAP PO ×4 (02:14→21:05)
[2017-07-22] MEDS: LABETALOL HCL 100 MG/20 ML VIAL IV ×3 (02:14→12:50)
[2017-07-22 06:01] LABS: HEMATOCRIT 38.9 % (42.0-52.0); HEMOGLOBIN 12.9 g/dl (13.5-17.5); MEAN CORPUSCULAR HEMOGLOBIN 28.7 pg (27.0-33.0); MEAN CORPUSCULAR HGB CONC 33.2 g/dl (32.0-36.5); MEAN CORPUSCULAR VOLUME 86.6 fl (80.0-96.0); PLATELET COUNT, AUTOMATED 137 10^3/uL (150-450); RED BLOOD COUNT 4.49 10^6/uL (4.30-6.10); RED CELL DISTRIBUTION WIDTH 12.6 % (11.5-14.5)
[2017-07-22 06:24] LABS: ALBUMIN 3.1 GM/DL (3.2-5.2); ALBUMIN/GLOBULIN RATIO 0.91 (1.00-1.93); ALKALINE PHOSPHATASE 60 U/L (45-117); ALT/SGPT 45 U/L (12-78); ANION GAP 7 MEQ/L (8-16); AST/SGOT 25 U/L (7-37); BILIRUBIN,TOTAL 0.9 MG/DL (0.2-1.0); BLOOD UREA NITROGEN 9 MG/DL (7-18); CALCIUM LEVEL 7.8 MG/DL (8.5-10.1); CARBON DIOXIDE LEVEL 26 MEQ/L (21-32); CHLORIDE LEVEL 108 MEQ/L (98-107); CREATININE FOR GFR 0.58 MG/DL (0.70-1.30); GLOMERULAR FILTRATION RATE > 60.0 (>56); GLUCOSE, FASTING 89 MG/DL (70-100); MAGNESIUM LEVEL 1.9 MG/DL (1.8-2.4); POTASSIUM SERUM 3.5 MEQ/L (3.5-5.1); SODIUM LEVEL 141 MEQ/L (136-145); TOTAL PROTEIN 6.5 GM/DL (6.4-8.2)
[2017-07-22] MEDS ORDERED: THIAMINE 100 MG TAB PO (09:00)
[2017-07-22] MEDS ORDERED: MULTIVITAMINS/MINERALS THERAP 1 TAB PO (09:00)
[2017-07-22] MEDS: FLUoxetine 20 MG CAP PO (09:12)
[2017-07-22] MEDS: THIAMINE 100 MG TAB PO (09:13)
[2017-07-22] MEDS: MULTIVITAMINS/MINERALS THERAP 1 TAB PO (09:13)
[2017-07-22] MEDS: FOLIC ACID 1 MG TAB PO (09:14)
[2017-07-22] MEDS: LISINOPRIL 20 MG TAB PO (09:14)
[2017-07-22] MEDS: CARVedilol 12.5 MG TAB PO (21:06)
[2017-07-22] MEDS: ENOXAPARIN 40 MG/0.4 ML SYRINGE (J1650) SC (21:06)
[2017-07-22] MEDS: zolPIDEM TARTRATE 5 MG TAB PO (22:30)
[2017-07-23 05:48] LABS: HEMOGLOBIN 12.7 g/dl (13.5-17.5); MEAN CORPUSCULAR HEMOGLOBIN 28.2 pg (27.0-33.0); MEAN CORPUSCULAR HGB CONC 32.6 g/dl (32.0-36.5); MEAN CORPUSCULAR VOLUME 86.5 fl (80.0-96.0); PLATELET COUNT, AUTOMATED 145 10^3/uL (150-450); RED BLOOD COUNT 4.51 10^6/uL (4.30-6.10); RED CELL DISTRIBUTION WIDTH 12.5 % (11.5-14.5); WHITE BLOOD COUNT 7.3 10^3/uL (4.0-10.0)
[2017-07-23 06:07] LABS: ALBUMIN 3.1 GM/DL (3.2-5.2); ALBUMIN/GLOBULIN RATIO 0.91 (1.00-1.93); ALKALINE PHOSPHATASE 60 U/L (45-117); ALT/SGPT 44 U/L (12-78); ANION GAP 5 MEQ/L (8-16); AST/SGOT 23 U/L (7-37); BILIRUBIN,TOTAL 0.7 MG/DL (0.2-1.0); BLOOD UREA NITROGEN 14 MG/DL (7-18); CALCIUM LEVEL 8.4 MG/DL (8.5-10.1); CARBON DIOXIDE LEVEL 27 MEQ/L (21-32); CHLORIDE LEVEL 107 MEQ/L (98-107); CREATININE FOR GFR 0.64 MG/DL (0.70-1.30); GLOMERULAR FILTRATION RATE > 60.0 (>56); GLUCOSE, FASTING 97 MG/DL (70-100); MAGNESIUM LEVEL 1.8 MG/DL (1.8-2.4); POTASSIUM SERUM 3.7 MEQ/L (3.5-5.1); SODIUM LEVEL 139 MEQ/L (136-145); TOTAL PROTEIN 6.5 GM/DL (6.4-8.2)
[2017-07-23] MEDS: OXAZEPAM 10 MG CAP PO (06:29)
[2017-07-23] MEDS: FOLIC ACID 1 MG TAB PO (11:15)
[2017-07-23] MEDS: FLUoxetine 20 MG CAP PO (11:15)
[2017-07-23] MEDS: THIAMINE 100 MG TAB PO (11:15)
[2017-07-23] MEDS: MULTIVITAMINS/MINERALS THERAP 1 TAB PO (11:15)
[2017-07-23] MEDS: CARVedilol 12.5 MG TAB PO (11:17)
[2017-07-23] MEDS: LISINOPRIL 20 MG TAB PO (11:18)
== END 2017-07-23 13:50 | disposition home or self-care (01) | DRG 775 ==
LOC: M ICU 07-21 00:12 → M ED 09:33 → M PCU 07-21 18:41 → M ED INP 19:24 → M MSPAV 21:32
DX: F10.239 Alcohol dependence with withdrawal, unspecified (principal); I10 Essential (primary) hypertension; F41.9 Anxiety disorder, unspecified; I16.0 Hypertensive urgency; F32.9 Major depressive disorder, single episode, unspecified; Z79.899 Other long term (current) drug therapy

== ENCOUNTER → 2017-12-21 | Outpatient (CLI) | payer OTHER | LOC: M SLEEP HO 13:09 | DX: G47.33 Obstructive sleep apnea (adult) (pediatric) (principal) | CPT/HCPCS: G0399 ==

== ENCOUNTER 2018-02-25 22:51 | Emergency (ER) | payer OTHER ==
[~2018-02-25] VITALS: Ht 175.3 cm; Wt 100.0 kg
[~2018-02-25 22:51] MED LIST changes: -AMLO5TAB2 PO; +AMLO5TAB6 PO; +CARV12.5 PO; +DOXY100C37 PO; +FOLI1TAB11 PO; -FOLI1TAB4 PO; +MULT1TAB10 PO; -PANT40TA2 PO; +PANT40TA3 PO; +TRAZ-160 PO; -VITA100T2 PO; +VITA100T8 PO
[2018-02-25] MEDS ORDERED: MULTIVITAMIN -ADULT INJECTION 10 ML, THIAMINE INJection 100 MG, FOLIC ACID 1 MG in NS 1... IV ONE (23:15)
[2018-02-26 00:12] LABS: ALBUMIN 3.5 GM/DL (3.2-5.2); ALT/SGPT 33 U/L (12-78); BILIRUBIN,DIRECT < 0.1 MG/DL (0.0-0.2); BILIRUBIN,TOTAL 0.2 MG/DL (0.2-1.0); BLOOD UREA NITROGEN 16 MG/DL (7-18); CALCIUM LEVEL 8.2 MG/DL (8.5-10.1); CARBON DIOXIDE LEVEL 23 MEQ/L (21-32); CHLORIDE LEVEL 110 MEQ/L (98-107); CREATININE FOR GFR 0.77 MG/DL (0.70-1.30); ETHYL ALCOHOL (ETHANOL) < 0.003 % (0.000-0.010); GLOMERULAR FILTRATION RATE > 60.0 (>56); GLUCOSE, FASTING 127 MG/DL (70-100); POTASSIUM SERUM 4.7 MEQ/L (3.5-5.1); SODIUM LEVEL 140 MEQ/L (136-145); TOTAL PROTEIN 6.8 GM/DL (6.4-8.2)
[2018-02-26 00:14] LABS: BASO # 0.1 10^3/uL (0.0-0.2); BASO % 0.8 % (0.0-1.0); EOS # 0.2 10^3/uL (0.0-0.50); EOS % 2.7 % (0.0-3.0); HEMATOCRIT 42.4 % (42.0-52.0); LYMPH # 1.5 10^3/uL (1.5-4.5); LYMPH % 23.4 % (24.0-44.0); MEAN CORPUSCULAR HEMOGLOBIN 28.7 pg (27.0-33.0); MEAN CORPUSCULAR VOLUME 86.9 fl (80.0-96.0); MONO # 0.6 10^3/uL (0.0-0.8); MONO % 9.6 % (0.0-5.0); NEUTROPHILS % 62.7 % (36.0-66.0); PLATELET COUNT, AUTOMATED 224 10^3/uL (150-450); RED BLOOD COUNT 4.88 10^6/uL (4.30-6.10); WHITE BLOOD COUNT 6.4 10^3/uL (4.0-10.0)
[2018-02-26] MEDS ORDERED: PHENobarbital INJ 65 MG/ML VIAL (J2560) IV STA ×2 (00:19→01:11)
[2018-02-26] MEDS ORDERED: DOXY100T16 PO (00:23)
[2018-02-26] MEDS ORDERED: CARV12.5 PO (00:24)
[2018-02-26 02:22] VITALS: BP 155/84
== END 2018-02-26 02:50 | disposition home or self-care (01) ==
LOC: M ED 22:51
DX: F10.239 Alcohol dependence with withdrawal, unspecified (principal); I10 Essential (primary) hypertension; Z79.899 Other long term (current) drug therapy
CPT/HCPCS: 80048; 80076; 85025; 96374; 96375; 96376; 99284; G0480; J2560; J3411

== ENCOUNTER → 2018-04-15 | Outpatient (CLI) | payer OTHER ==
[~2018-04-15] MED LIST changes: +DOXY100T16 PO
[2018-04-15 16:11] LABS: BLOOD UREA NITROGEN 12 MG/DL (7-18); CALCIUM LEVEL 8.3 MG/DL (8.5-10.1); CARBON DIOXIDE LEVEL 27 MEQ/L (21-32); CHLORIDE LEVEL 107 MEQ/L (98-107); CREATININE FOR GFR 0.79 MG/DL (0.70-1.30); GLOMERULAR FILTRATION RATE > 60.0 (>56); GLUCOSE, FASTING 96 MG/DL (70-100); POTASSIUM SERUM 5.2 MEQ/L (3.5-5.1); SODIUM LEVEL 142 MEQ/L (136-145)
--- NOTE | 2018-04-16 17:41 | ECGEPIP ---
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
== END ==
LOC: M LAB 14:50
PROVIDERS: ATTEND Orthopaedic Surgery
DX: M25.332 Other instability, left wrist (principal)

== ENCOUNTER → 2018-11-01 | Outpatient (CLI) | payer OTHER ==
[~2018-11-01] MED LIST changes: +HYDR-3715 PO; -NORC1TAB4 PO; +NORC1TAB7 PO; -NORCOTAB PO; +OXYC1TAB23 PO; -PERCOCET PO; -SENN1TAB2 PO; +SENN1TAB40 PO; +SERT-141 PO; -SERT50TA PO; -TRAZ-160 PO; +TRAZ-252 PO; +TRAZ1TAB10 PO; -TRAZO50TA PO
--- NOTE | 2018-11-02 06:07 | ECGEPIP ---
[facility] Test Date: 2018-11-01 Pat Name: NAMAN HARPER Department: Room: - Gender: Male Regulatory Affairs Strategy Specialist: BALJEET : 1965 Requested By: SHAHNAZ Oglesby Order Number: [id number] Reading MD: Duglas Granado Measurements Intervals [place] Rate: 72 P: 52 [place]: 156 QRS: 55 QRSD: 81 T: 79 QT: 386 QTc: 424 Interpretive Statements Normal sinus rhythm Delayed anterior R wave progression Compared to prior tracing of 07/02/2018, heart rate is slower Electronically Signed on 11-02-2018 6:07:15 EDT by Dulgas Granado
== END ==
LOC: M EKG 14:46
PROVIDERS: ATTEND Orthopaedic Surgery
DX: I10 Essential (primary) hypertension (principal)

== ENCOUNTER → 2019-02-11 | Outpatient (CLI) | payer OTHER ==
[~2019-02-11] MED LIST changes: -DOXY100T16 PO; +DOXY100T27 PO; +FLUO20CA20 PO; -FLUO20CA8 PO; +SENN-53 PO; -SENN1TAB40 PO
--- NOTE | 2019-02-11 14:35 | REP ---
RIGHT FOOT SERIES: Four views. HISTORY: Twisting injury. FINDINGS: Four views of the right foot show overall normal mineralization. No fracture or subluxation is visible. No opaque foreign body seen. IMPRESSION: Negative radiographs of the right foot. Electronically Signed by Serafin Richards MD 02/11/2019 04:13 P
== END ==
LOC: M RAD 13:38
PROVIDERS: ATTEND Physician Assistant
DX: M25.571 Pain in right ankle and joints of right foot (principal)

== ENCOUNTER → 2019-03-14 | Outpatient (REF) | payer OTHER ==
[2019-03-14 13:53] LABS: BASO # 0.1 10^3/uL (0.0-0.2); BASO % 0.7 % (0.0-1.0); EOS # 0.1 10^3/uL (0.0-0.5); EOS % 1.7 % (0.0-3.0); HEMATOCRIT 49.1 % (42.0-52.0); HEMOGLOBIN 15.5 g/dl (13.5-17.5); LYMPH # 1.9 10^3/uL (1.5-5.0); LYMPH % 26.6 % (24.0-44.0); MEAN CORPUSCULAR HEMOGLOBIN 28.8 pg (27.0-33.0); MEAN CORPUSCULAR HGB CONC 31.6 g/dl (32.0-36.5); MEAN CORPUSCULAR VOLUME 91.1 fl (80.0-96.0); MONO # 0.6 10^3/uL (0.0-0.8); MONO % 8.1 % (0.0-5.0); NEUTROPHILS # 4.4 10^3/uL (1.5-8.5); NEUTROPHILS % 62.2 % (36.0-66.0); PLATELET COUNT, AUTOMATED 255 10^3/uL (150-450); RED BLOOD COUNT 5.39 10^6/uL (4.30-6.10)
[2019-03-14 13:55] LABS: C REACTIVE PROTEIN QUANTITATIV 0.84 MG/DL (0.00-0.30); URIC ACID 5.3 MG/DL (3.5-7.2)
[2019-03-14 14:51] LABS: ERYTHROCYTE SEDIMENTATION RATE 106 mm/hr (0-20)
== END ==
LOC: M LABDRAW1 13:14
PROVIDERS: ATTEND Orthopaedic Surgery
DX: M79.671 Pain in right foot (principal)

== ENCOUNTER 2019-07-02 23:00 | Emergency (ER) | payer OTHER ==
[~2019-07-02] VITALS: Ht 175.3 cm; Wt 113.3 kg
[~2019-07-02 23:00] MED LIST changes: -FLUO20CA19 PO; +FLUO20CA22 PO
[2019-07-02] MEDS ORDERED: LABETALOL 100MG/20ML VIAL IV STA (23:14)
[2019-07-02] MEDS ORDERED: NS 1,000 ML IV ONE (23:15)
[2019-07-02 23:31] VITALS: BP 147/97
[2019-07-03] MEDS ORDERED: ONDANSETRON 4MG/2ML VIAL As Ordered ONE (00:52)
[2019-07-03] MEDS ORDERED: ONDANSETRON 4MG/2ML VIAL IV ONE (01:00)
[2019-07-03 01:11] LABS: HEMATOCRIT 43.4 % (42.0-52.0); MEAN CORPUSCULAR HEMOGLOBIN 27.8 pg (27.0-33.0); MEAN CORPUSCULAR HGB CONC 32.3 g/dl (32.0-36.5); MEAN CORPUSCULAR VOLUME 86.3 fl (80.0-96.0); PLATELET COUNT, AUTOMATED 193 10^3/uL (150-450); RED BLOOD COUNT 5.03 10^6/uL (4.30-6.10); WHITE BLOOD COUNT 16.2 10^3/uL (4.0-10.0)
[2019-07-03 01:46] LABS: ACETAMINOPHEN LEVEL < 2.0 UG/ML (10.0-30.0); ALBUMIN 3.6 GM/DL (3.2-5.2); ALT/SGPT 31 U/L (12-78); BILIRUBIN,DIRECT 0.1 MG/DL (0.0-0.2); BILIRUBIN,TOTAL 0.5 MG/DL (0.2-1.0); BLOOD UREA NITROGEN 15 MG/DL (7-18); CARBON DIOXIDE LEVEL 26 MEQ/L (21-32); CHLORIDE LEVEL 109 MEQ/L (98-107); CK-MB VALUE MASS 1.9 NG/ML (<3.6); CPK CREATINE PHOSPHOKINASE 145 U/L (39-308); CREATININE FOR GFR 0.95 MG/DL (0.70-1.30); ETHYL ALCOHOL (ETHANOL) < 0.003 % (0.000-0.010); GLOMERULAR FILTRATION RATE > 60.0 (>56); GLUCOSE, FASTING 135 MG/DL (70-100); MB/CK RELATIVE INDEX 1.31 (< OR =4); POTASSIUM SERUM 4.3 MEQ/L (3.5-5.1); SALICYLATE LEVEL < 1.7 MG/DL (5.0-30.0); SODIUM LEVEL 142 MEQ/L (136-145); THYROID STIMULATING HORMONE 0.953 uIU/ML (0.358-3.740); TOTAL PROTEIN 6.8 GM/DL (6.4-8.2); TROPONIN I < 0.02 NG/ML (< 0.10)
--- NOTE | 2019-07-03 01:52 | REPVR ---
PROCEDURE INFORMATION: Exam: CT Head Without Contrast Exam date and time: 07/03/2019 1:44 AM Age: 53 years old Clinical indication: Pain; Headache; Additional info: Fall TECHNIQUE: Imaging protocol: Computed tomography of the head without contrast. Radiation optimization: All CT scans at this facility use at least one of these dose optimization techniques: automated exposure control; mA and/or kV adjustment per patient size (includes targeted exams where dose is matched to clinical indication); or iterative reconstruction. COMPARISON: CT Head without contrast 07/20/2017 11:35 AM FINDINGS: Brain: No acute intracranial hemorrhage, midline shift or mass effect. Ventricles: No hydrocephalus. Bones/joints: Unremarkable. No acute fracture. Sinuses: Minimal paranasal sinus disease. Mastoid air cells: Previous partial right mastoidectomy. Partial opacification of the residual right mastoid air cells. Soft tissues: Unremarkable. IMPRESSION: No acute intracranial abnormality. Electronically signed by: Del England On 07/03/2019 01:52:03 AM
--- NOTE | 2019-07-03 02:01 | REPVR ---
PROCEDURE INFORMATION: Exam: CT Chest Without Contrast Exam date and time: 07/03/2019 1:44 AM Age: 53 years old Clinical indication: Chest pain; Additional info: Fall TECHNIQUE: Imaging protocol: Computed tomography of the chest without contrast. 3D rendering: MIP and/or 3D reconstructed images were created by the technologist. Radiation optimization: All CT scans at this facility use at least one of these dose optimization techniques: automated exposure control; mA and/or kV adjustment per patient size (includes targeted exams where dose is matched to clinical indication); or iterative reconstruction. COMPARISON: CT ANGIO CHEST 01/09/2017 11:34 AM FINDINGS: Lungs: Patchy atelectasis and lung infiltrates. No central endobronchial lesion or dominant mass. Pleural space: No hemothorax or pneumothorax. Heart: No cardiac enlargement or pericardial effusion. Mediastinum: No mediastinal hematoma. Aorta: No abnormal dilatation of the thoracic aorta. Lymph nodes: No enlarged mediastinal lymph nodes. Bones/joints: No acute displaced fractures involving ribs, thoracic spine or shoulder girdle. Old, healed left rib fractures are present. Soft tissues: No asymmetric abnormality of the extrathoracic soft tissues. Other findings: Limited trauma evaluation without IV contrast. Also limited by body habitus and scanning of the patient with the arms at the sides of the chest. IMPRESSION: 1. No CT evidence of acute thoracic trauma. 2. Patchy lung infiltrates which may represent multifocal or atypical/viral pneumonia. Appearance is not suggestive of lung contusions, given the pattern Electronically signed by: Rodri Deluca On 07/03/2019 02:01:38 AM
[2019-07-03 02:08] LABS: AMPHETAMINES LEVEL URINE NEGATIVE (NEGATIVE); BARBITURATES URINE NEGATIVE (NEGATIVE); BENZODIAZEPINES URINE NEGATIVE (NEGATIVE); CANNABINOIDS URINE NEGATIVE (NEGATIVE); COCAINE METABOLITE URINE POSITIVE (NEGATIVE); METHADONE URINE NEGATIVE (NEGATIVE); OPIATES URINE POSITIVE (NEGATIVE); PHENCYCLIDINE URINE NEGATIVE (NEGATIVE)
[2019-07-03] MEDS ORDERED: NS 1,000 ML IV ONE (02:45)
[2019-07-03 06:34] VITALS: BP 132/81
--- NOTE | 2019-07-03 07:35 | ECGEPIP ---
[facility] - ED Test Date: 2019-07-02 Pat Name: NAMAN HARPER Department: Room: - Gender: Male Injection Mold Technician: LESLY : 1965 Requested By: SHERIDAN SANTANA Order Number: [id number] Reading MD: Michaelle Reyes Measurements Intervals [place] Rate: 92 P: 48 [place]: 148 QRS: 39 QRSD: 93 T: 51 QT: 376 QTc: 466 Interpretive Statements SINUS RHYTHM POSSIBLE INFERIOR MYOCARDIAL INFARCTION, PROBABLY OLD NSTTW abnormalities INCREASED RATE 11/01/18 Electronically Signed on 07-03-2019 7:35:22 EDT by Michaelle Reyes
== END 2019-07-03 06:39 | disposition home or self-care (01) ==
LOC: M ED 23:00
DX: T40.5X1A Poisoning by cocaine, accidental (unintentional), initial encounter (principal); F14.10 Cocaine abuse, uncomplicated; Y92.89 Other specified places as the place of occurrence of the external cause; I10 Essential (primary) hypertension; F99 Mental disorder, not otherwise specified; Z86.69 Personal history of other diseases of the nervous system and sense organs; Z79.899 Other long term (current) drug therapy
CPT/HCPCS: 70450; 71250; 80048; 80076; 80307; 82550; 82553; 84443; 85027; 93005; 96361; 96374; 99285; G0480; J2405

== ENCOUNTER 2019-12-15 16:56 | Emergency (ER) | payer OTHER ==
[~2019-12-15] VITALS: Ht 175.3 cm; Wt 119.2 kg
[~2019-12-15 16:56] MED LIST changes: +AMLO1TAB24 PO; -AMLO5TAB6 PO; +PANT40TA29 PO; -PANT40TA3 PO
[2019-12-15] MEDS ORDERED: DOXY100C (17:08)
[2019-12-15 17:58] LABS: BASO % 0.6 % (0.0-1.0); EOS # 0.1 10^3/uL (0.0-0.5); EOS % 1.6 % (0.0-3.0); HEMATOCRIT 45.4 % (42.0-52.0); LYMPH # 1.9 10^3/uL (1.5-5.0); MEAN CORPUSCULAR HEMOGLOBIN 28.1 pg (27.0-33.0); MEAN CORPUSCULAR HGB CONC 30.8 g/dl (32.0-36.5); MEAN CORPUSCULAR VOLUME 91.2 fl (80.0-96.0); MONO # 0.6 10^3/uL (0.0-0.8); MONO % 8.8 % (0.0-5.0); PLATELET COUNT, AUTOMATED 245 10^3/uL (150-450); RED BLOOD COUNT 4.98 10^6/uL (4.30-6.10); WHITE BLOOD COUNT 6.7 10^3/uL (4.0-10.0)
[2019-12-15 18:27] LABS: OSMOLALITY SERUM 346 MOSM/KG (275-295)
[2019-12-15 18:30] LABS: ALBUMIN 3.5 GM/DL (3.2-5.2); ALT/SGPT 53 U/L (12-78); BILIRUBIN,DIRECT < 0.1 MG/DL (0.0-0.2); BILIRUBIN,TOTAL 0.1 MG/DL (0.2-1.0); BLOOD UREA NITROGEN 11 MG/DL (7-18); CALCIUM LEVEL 8.8 MG/DL (8.5-10.1); CARBON DIOXIDE LEVEL 26 MEQ/L (21-32); CHLORIDE LEVEL 109 MEQ/L (98-107); CK-MB VALUE MASS 3.7 NG/ML (<3.6); CPK CREATINE PHOSPHOKINASE 172 U/L (39-308); CREATININE FOR GFR 0.84 MG/DL (0.70-1.30); ETHYL ALCOHOL (ETHANOL) 0.224 % (0.000-0.010); GLOMERULAR FILTRATION RATE > 60.0 (>56); GLUCOSE, FASTING 117 MG/DL (70-100); MB/CK RELATIVE INDEX 2.15 (< OR =4); POTASSIUM SERUM 4.3 MEQ/L (3.5-5.1); SODIUM LEVEL 144 MEQ/L (136-145); THYROID STIMULATING HORMONE 0.335 uIU/ML (0.358-3.740); TOTAL PROTEIN 6.6 GM/DL (6.4-8.2); TROPONIN I < 0.02 NG/ML (< 0.10)
--- NOTE | 2019-12-15 19:56 | REPVR ---
PROCEDURE INFORMATION: Exam: CT Head Without Contrast Exam date and time: 12/15/2019 7:22 PM Age: 54 years old Clinical indication: Altered mental status/memory loss; Confusion or disorientation TECHNIQUE: Imaging protocol: Computed tomography of the head without contrast. Radiation optimization: All CT scans at this facility use at least one of these dose optimization techniques: automated exposure control; mA and/or kV adjustment per patient size (includes targeted exams where dose is matched to clinical indication); or iterative reconstruction. COMPARISON: CT Head without contrast 07/03/2019 1:27 AM FINDINGS: Brain: Normal. No hemorrhage. Unremarkable white matter. No mass effect. Cerebral ventricles: No ventriculomegaly. Bones/joints: Unremarkable. No acute fracture. Paranasal sinuses: Visualized sinuses are unremarkable. No fluid levels. Mastoid air cells: Visualized mastoid air cells are well aerated. Soft tissues: Unremarkable. IMPRESSION: No acute intracranial abnormality. Electronically signed by: Shruthi Valle On 12/15/2019 19:55:50 PM
[2019-12-15 20:28] VITALS: BP 159/88
[2019-12-15 20:49] LABS: AMPHETAMINES LEVEL URINE NEGATIVE (NEGATIVE); BARBITURATES URINE NEGATIVE (NEGATIVE); BENZODIAZEPINES URINE NEGATIVE (NEGATIVE); CANNABINOIDS URINE POSITIVE (NEGATIVE); COCAINE METABOLITE URINE NEGATIVE (NEGATIVE); METHADONE URINE NEGATIVE (NEGATIVE); OPIATES URINE NEGATIVE (NEGATIVE); PHENCYCLIDINE URINE NEGATIVE (NEGATIVE)
--- NOTE | 2019-12-16 16:55 | ECGEPIP ---
[facility] - ED Test Date: 2019-12-15 Pat Name: NAMAN HARPER Department: Room: - Gender: Male Marketing Automation Analyst: merle : 1965 Requested By: Michaelle Reyes Order Number: [id number] Reading MD: Michaelle Reyes Measurements Intervals [place] Rate: 96 P: 43 [place]: 136 QRS: 38 QRSD: 88 T: 58 QT: 336 QTc: 425 Interpretive Statements SINUS RHYTHM POSSIBLE INFERIOR MYOCARDIAL INFARCTION, PROBABLY OLD NSTTW abnormalities SIMILAR 07/02/19 Electronically Signed on 12-16-2019 16:55:32 EST by Michaelle Reyes
== END 2019-12-15 20:38 | disposition home or self-care (01) ==
LOC: M ED 16:56
DX: F10.120 Alcohol abuse with intoxication, uncomplicated (principal); R29.701 NIHSS score 1; R26.0 Ataxic gait; I10 Essential (primary) hypertension; F41.9 Anxiety disorder, unspecified; F32.9 Major depressive disorder, single episode, unspecified; Z79.899 Other long term (current) drug therapy; Z79.2 Long term (current) use of antibiotics
CPT/HCPCS: 70450; 80047; 80048; 80076; 80307; 82140; 82550; 82553; 83735; 83930; 84443; 85025; 93005; 93041; 94760; 99285; G0480; U0002

== ENCOUNTER 2020-07-09 12:05 | Emergency (ER) | payer OTHER ==
[~2020-07-09] VITALS: Ht 175.3 cm; Wt 111.4 kg
[~2020-07-09 12:05] MED LIST changes: -AMIT10TA PO; +AMIT10TA7 PO; +DOXY100C; -LISI-538 PO; -LISI-542 PO; +LISI-898 PO; +LISI10TA22 PO; -LISI10TA4 PO; +LISI20TA33 PO; -PEG1POW PO; +POLY17PO18 PO
--- NOTE | 2020-07-09 13:26 | REP ---
INDICATION: fall. pain to right leg. unable to bear weight on right leg COMPARISON: None. TECHNIQUE: AP and lateral views of the right tibia/fibula. FINDINGS: Fracture of the distal fibula/lateral malleolus. Remainder of the examination is grossly age-appropriate. IMPRESSION: Distal fibular fracture. <Electronically signed by Eros Garnica > 07/09/20 [id number]
--- NOTE | 2020-07-09 13:27 | REP ---
INDICATION: fall. pain to right leg. unable to bear weight on right leg COMPARISON: None. TECHNIQUE: AP and frog-lateral views of the right femur. FINDINGS: The osseous structures and joint spaces are intact and normal. There is no evidence for acute fracture or dislocation. Surrounding soft tissues are unremarkable. No subcutaneous emphysema or radiodense foreign body. IMPRESSION: . No acute fracture or dislocation. <Electronically signed by Eros Garnica > 07/09/20 [id number]
--- NOTE | 2020-07-09 13:28 | REP ---
INDICATION: fall. pain to right leg. unable to bear weight on right leg COMPARISON: None. TECHNIQUE: AP, lateral, bilateral oblique views. FINDINGS: Oblique nondisplaced fracture of the distal fibular metaphysis and small fracture of the medial malleolus/tip of the tibia with widening of the medial ankle mortise consistent with fracture and ligamentous injuries. Overlying soft tissue swelling noted. IMPRESSION: Fracture dislocation. <Electronically signed by Eros Garnica > 07/09/20 [id number]
--- NOTE | 2020-07-09 13:30 | REP ---
INDICATION: fall. pain to right leg. unable to bear weight on right leg COMPARISON: None. TECHNIQUE: AP, lateral, bilateral oblique views right foot. FINDINGS: The osseous structures and joint spaces are intact and normal. There is no evidence for acute fracture or dislocation. Surrounding soft tissues are unremarkable. No subcutaneous emphysema or radiodense foreign body. IMPRESSION: . No acute fracture or dislocation. <Electronically signed by Eros Garnica > 07/09/20 [id number]
[2020-07-09] MEDS ORDERED: MORPHINE 4 MG/ML 1ML VIAL/SYRINGE (J2270) IV ONE ×3 (13:40→16:50)
[2020-07-09] MEDS ORDERED: NS 500 ML IV ONE (14:25)
[2020-07-09] MEDS ORDERED: NS 1,000 ML IV SCH (14:25)
[2020-07-09 14:31] LABS: BASO # 0.1 10^3/uL (0.0-0.2); BASO % 0.4 % (0.0-1.0); EOS # 0.1 10^3/uL (0.0-0.5); EOS % 0.4 % (0.0-3.0); HEMATOCRIT 48.5 % (42.0-52.0); HEMOGLOBIN 15.8 g/dl (13.5-17.5); LYMPH # 1.3 10^3/uL (1.5-5.0); LYMPH % 10.5 % (24.0-44.0); MEAN CORPUSCULAR HEMOGLOBIN 29.5 pg (27.0-33.0); MEAN CORPUSCULAR HGB CONC 32.6 g/dl (32.0-36.5); MEAN CORPUSCULAR VOLUME 90.7 fl (80.0-96.0); MONO % 7.9 % (2.0-8.0); NEUTROPHILS # 10.2 10^3/uL (1.5-8.5); NEUTROPHILS % 80.2 % (36.0-66.0); PLATELET COUNT, AUTOMATED 203 10^3/uL (150-450); RED BLOOD COUNT 5.35 10^6/uL (4.30-6.10); WHITE BLOOD COUNT 12.7 10^3/uL (4.0-10.0)
[2020-07-09 14:41] LABS: INR 0.93; PROTHROMBIN TIME 12.7 SECONDS (12.5-14.3)
[2020-07-09 14:42] LABS: PARTIAL THROMBOPLASTIN TIME 26.3 SECONDS (24.2-38.5)
[2020-07-09 14:55] LABS: ALBUMIN 3.5 GM/DL (3.2-5.2); ALT/SGPT 49 U/L (12-78); BILIRUBIN,TOTAL 0.7 MG/DL (0.2-1.0); BLOOD UREA NITROGEN 12 MG/DL (7-18); CALCIUM LEVEL 8.8 MG/DL (8.5-10.1); CARBON DIOXIDE LEVEL 27 MEQ/L (21-32); CHLORIDE LEVEL 105 MEQ/L (98-107); CREATININE FOR GFR 0.66 MG/DL (0.70-1.30); GLOMERULAR FILTRATION RATE > 60.0 (>56); GLUCOSE, FASTING 122 MG/DL (70-100); POTASSIUM SERUM 4.4 MEQ/L (3.5-5.1); SODIUM LEVEL 138 MEQ/L (136-145); TOTAL PROTEIN 6.9 GM/DL (6.4-8.2)
[2020-07-09 15:30] LABS: RSV AMPLIFICATION NEGATIVE (NEGATIVE)
[2020-07-09] MEDS ORDERED: LIDOCAINE 5% (LIDODERM) PATCH TD ONE (15:40)
[2020-07-09 17:16] VITALS: BP 164/88
[2020-07-09] MEDS ORDERED: **NOTE PATIENT COMMENT** MISC XX SCH (21:00)
== END 2020-07-09 17:25 | disposition short-term general hospital (02) ==
LOC: M ED 12:05
DX: S82.64XA Nondisplaced fracture of lateral malleolus of right fibula, initial encounter for closed fracture (principal); I10 Essential (primary) hypertension; Z87.442 Personal history of urinary calculi; K58.9 Irritable bowel syndrome, unspecified; F32.9 Major depressive disorder, single episode, unspecified; F10.10 Alcohol abuse, uncomplicated; R41.82 Altered mental status, unspecified; Z79.899 Other long term (current) drug therapy
CPT/HCPCS: 73552; 73590; 73610; 73630; 80053; 85025; 85610; 85730; 87631; 96361; 96374; 96376; 99285; J2270

== ENCOUNTER → 2020-07-13 | Outpatient (CLI) | payer OTHER ==
--- NOTE | 2020-07-13 16:44 | REPVR ---
PROCEDURE INFORMATION: Exam: CT Right Lower Extremity Without Contrast, Ankle Exam date and time: 07/13/2020 3:02 PM Age: 54 years old Clinical indication: Condition or disease; Other: Displaced fracture right ankle TECHNIQUE: Imaging protocol: CT of the Right lower extremity without contrast was performed. Exam focused on the ankle. Radiation optimization: All CT scans at this facility use at least one of these dose optimization techniques: automated exposure control; mA and/or kV adjustment per patient size (includes targeted exams where dose is matched to clinical indication); or iterative reconstruction. COMPARISON: CR Tibia, Fibula lower leg 07/09/2020 12:49:04 PM FINDINGS: Limitations: Comparison ankle and foot radiographs from 07/09/2020 have been requested but remain unavailable on PACs. Bones/joints: There is an acute comminuted distal fibular fracture involving the metadiaphysis and lateral malleolus. Most fracture fragments are mildly displaced, with more pronounced anterior displacement of distal fracture fragments the fracture extends into the syndesmosis. Acute cortical fracture fragments which are mildly to moderately displaced off the medial malleolus. There is also a fracture fragment which may be remote measuring 2 mm distal to the lateral malleolus mild widening of the medial clear space. There is 4 mm lateral subluxation at the 1st tarsometatarsal joint and at the 2nd tarsometatarsal joint. 3 mm lateral subluxation at the 3rd and 2 mm lateral subluxation at the 4th tarsometatarsal joint. Fracture fragment between the 1st and 2nd metatarsal bases most likely arising from the 2nd metatarsal, of indeterminate age. Tiny flake of cortical bone at the medial aspect of the tarsometatarsal joint. Additional small fracture fragments between the 2nd and 3rd metatarsal bases which may arise from the metatarsals. Tiny fracture fragments off the lateral aspects of the lateral cuneiform and cuboid distally. This Lisfranc joint injury could be acute or chronic, as the fracture fragments are small and it is difficult to determine if they are corticated. There is dorsal subluxation at the 1st tarsometatarsal joint by 5 mm. Small ossicles dorsal to the distal middle and lateral cuneiforms appear corticated and are more likely old. 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 Soft tissues: Circumferential subcutaneous edema at the distal lower leg and ankle, with lenticular small subcutaneous hematoma overlying the lateral malleolus. Small amount of disorganized fluid with interdigitated fat overlying the medial malleolus. Edema propagates into the hindfoot. Severe subcutaneous soft tissue edema and component of subcutaneous hemorrhage at the dorsum of the forefoot. No soft tissue air or radiopaque foreign body. No tendon subluxation. IMPRESSION: 1. Acute comminuted mildly displaced distal fibular fracture. 2. Multiple small acute cortical fractures off the distal tip of the medial malleolus and findings suggesting remote medial malleolar fracture as well. 3. Multiple fracture fragments and malalignment at the Lisfranc joint, with findings suggesting an acute on chronic injury with homolateral Lisfranc fracture subluxation. 4. Multifocal soft tissue swelling, including since at the distal lower leg, ankle, and foot, particularly pronounced in the dorsal forefoot and overlying the lateral malleolus where there is also subcutaneous hemorrhage. Electronically signed by: María Fatima On 07/13/2020 16:44:40 PM
== END ==
LOC: M RAD 14:50
PROVIDERS: ATTEND Orthopaedic Surgery
DX: S82.61XA Displaced fracture of lateral malleolus of right fibula, initial encounter for closed fracture (principal); W18.30XA Fall on same level, unspecified, initial encounter; Y92.009 Unspecified place in unspecified non-institutional (private) residence as the place of occurrence of the external cause

== ENCOUNTER → 2021-02-10 | Outpatient (CLI) | payer OTHER ==
[~2021-02-10] MED LIST changes: +DOXY-443 PO; -DOXY100C; +DOXY100C3; -DOXY100C37 PO
--- NOTE | 2021-02-10 11:03 | REP ---
INDICATION: DYSPNEA PT IS PICKING UP SLEEP KIT FROM UPSTAIRS FIRST COMPARISON: 07/02/2018 TECHNIQUE: PA and lateral. FINDINGS: The mediastinum and cardiac silhouette are normal. The lung rodriguez are clear and without acute consolidation, effusion, or pneumothorax. The skeletal structures are intact and normal. IMPRESSION: No acute cardiopulmonary process. <Electronically signed by Eros Garnica > 02/10/21 [id number]
--- NOTE | 2021-02-11 15:43 | SLEEPHOME ---
DATE: 02/10/2021 ORDERED BY: TOYA Almaguer Diagnostic home sleep testing was performed due to concern for the obstructive sleep apnea syndrome in this patient with a history of excessive somnolence, morning headaches, and nonrestorative sleep. For testing, a Nox T3 respiratory monitoring device was used. Continuous record was made of pulse, oxygen saturation, air flow, chest and abdominal strain, and body position. Nine hours and 59 minutes of data were reviewed. There were 6 hours and 8 minutes marked as time in bed. During the interval marked time in bed, there were 471 respiratory events identified of 10 seconds in duration or greater for a respiratory event index of 76.8. The events were obstructive. Baseline pulse rate was 87. Pulse rate ranged 60 to 113. Baseline saturation was just 88%. Saturations fell to 64% and testing was performed in both the supine and nonsupine positions. IMPRESSION: Abnormal home sleep testing with repetitive respiratory events and oxygen desaturations to 64% with a respiratory event index of 76.8 is consistent with the obstructive sleep apnea syndrome. RECOMMENDATION: The patient should be encouraged to undergo a formal sleep evaluation. cc: SAVANNAH ALEJANDRA MD
== END ==
LOC: M SLEEP HO 10:04
PROVIDERS: ATTEND Physician Assistant
DX: G47.33 Obstructive sleep apnea (adult) (pediatric) (principal)

== ENCOUNTER → 2021-03-19 | Outpatient (CLI) | payer OTHER ==
[~2021-03-19] MED LIST changes: +FLUO-96 PO; -FLUO20CA20 PO; -LISI-898 PO; +LISI5TAB11 PO
== END ==
LOC: M SLEEP 20:00
PROVIDERS: ATTEND Physician Assistant
DX: G47.33 Obstructive sleep apnea (adult) (pediatric) (principal)

== ENCOUNTER → 2021-03-25 | Outpatient (CLI) | payer OTHER ==
[~2021-03-25] MED LIST changes: +METHACHOLINE KIT (J7674) INH ONE
== END ==
LOC: M CARPUL 07:48
PROVIDERS: ATTEND Physician Assistant
DX: R06.00 Dyspnea, unspecified (principal)
CPT/HCPCS: 94070; 95070; J7674

== ENCOUNTER 2021-05-13 10:34 | Emergency (ER) | payer OTHER ==
[~2021-05-13] VITALS: Ht 172.7 cm; Wt 121.8 kg
[~2021-05-13 10:34] MED LIST changes: -METHACHOLINE KIT (J7674) INH ONE
[2021-05-13] MEDS ORDERED: DOXY-443 (10:47)
[2021-05-13] MEDS ORDERED: NS 1,000 ML IV SCH (11:15)
[2021-05-13] MEDS ORDERED: diphenhydrAMINE 50MG/ML VIAL (J1200) IV ONE (11:15)
[2021-05-13] MEDS ORDERED: methylPREDNISolone 125MG 2ML VIAL IV ONE (11:15)
[2021-05-13] MEDS ORDERED: FAMOTIDINE 20MG/2ML VIAL IVP ONE (11:15)
[2021-05-13] MEDS: ALBUTEROL SULFATE 2.5 MG/0.5 ML INH NEB SOLN NEB SCH ×3 (11:33→12:04)
[2021-05-13] MEDS ORDERED: PRED20TA PO (12:57)
[2021-05-13] MEDS ORDERED: BENA25CA4 PO (12:57)
[2021-05-13 13:30] VITALS: BP 124/71
== END 2021-05-13 13:51 | disposition home or self-care (01) ==
LOC: M ED 10:34
DX: T78.40XA Allergy, unspecified, initial encounter (principal); L29.9 Pruritus, unspecified; Z79.899 Other long term (current) drug therapy
CPT/HCPCS: 93041; 94640; 94760; 96361; 96374; 96375; 99285; J1200; J2930

== ENCOUNTER → 2021-07-29 | Outpatient (REF) | payer OTHER ==
[~2021-07-29] MED LIST changes: +BENA25CA4 PO; +DOXY-443; +PRED20TA PO
[2021-07-29 21:37] LABS: APPEARANCE, URINE CLEAR (CLEAR); BACTERIA, URINE AUTO NEGATIVE (NEGATIVE); BILIRUBIN, URINE AUTO NEGATIVE (NEGATIVE); BLOOD, URINE BLOOD NEGATIVE (NEGATIVE); COLOR, URINE YELLOW (YELLOW); GLUCOSE, URINE (UA) AUTO NEGATIVE (NEGATIVE); KETONE, URINE AUTO NEGATIVE (NEGATIVE); LEUKOCYTE ESTERASE, URINE AUTO NEGATIVE (NEGATIVE); NITRITE, URINE AUTO NEGATIVE (NEGATIVE); PROTEIN, URINE AUTO NEGATIVE (NEGATIVE); RBC, URINE AUTO 0 /HPF (0-3); SPECIFIC GRAVITY URINE AUTO 1.011 (1.002-1.035); SQUAMOUS EPITHELIAL CELL UR AU 0 /HPF (0-6); UROBILINOGEN, URINE AUTO 0.2 mg/dL (0.0-2.0); WBC, URINE AUTO 1 /HPF (0-3)
== END ==
LOC: M LAB REF 20:57
PROVIDERS: ATTEND Physician Assistant Medical
DX: N23 Unspecified renal colic (principal)

== ENCOUNTER → 2021-08-17 | Outpatient (REF) | payer OTHER | LOC: M LAB REF 17:34 | PROVIDERS: ATTEND Physician Assistant Medical | DX: J06.9 Acute upper respiratory infection, unspecified (principal) ==

== ENCOUNTER → 2021-12-18 | Outpatient (CLI) | payer OTHER ==
[~2021-12-18] MED LIST changes: +MINO100C4 PO
== END ==
LOC: M LABSMTC 11:06
PROVIDERS: ATTEND Anesthesiology
DX: Z01.818 Encounter for other preprocedural examination (principal); Z11.52 Encounter for screening for COVID-19

== ENCOUNTER 2021-12-23 12:00 | Day surgery (SDC) | payer OTHER ==
[~2021-12-23] VITALS: Ht 175.3 cm; Wt 111.6 kg
[~2021-12-23 12:00] MED LIST changes: +NS 1,000 ML IV ONE
[2021-12-23] MEDS ORDERED: MIDAZOLAM INJ 2MG/2ML VIAL (J2250 PER 1MG) As Ordered ONE (13:30)
[2021-12-23] MEDS ORDERED: LIDOCAINE 2% 100MG/5ML SDV (FOR ANES.) As Ordered ONE (13:32)
[2021-12-23] MEDS ORDERED: propofoL 200 MG/20 ML VIAL As Ordered ONE (13:32)
[2021-12-23 14:19] VITALS: BP 137/84
== END 2021-12-23 14:44 | disposition home or self-care (01) ==
LOC: M OPP 12:00
PROVIDERS: ATTEND Internal Medicine Gastroenterology
DX: D12.6 Benign neoplasm of colon, unspecified (principal); K64.4 Residual hemorrhoidal skin tags; K64.8 Other hemorrhoids; K92.1 Melena; K22.89 Other specified disease of esophagus; K29.70 Gastritis, unspecified, without bleeding; Z79.52 Long term (current) use of systemic steroids; Z79.899 Other long term (current) drug therapy; I10 Essential (primary) hypertension; J45.909 Unspecified asthma, uncomplicated; G47.30 Sleep apnea, unspecified; L29.9 Pruritus, unspecified; Z87.442 Personal history of urinary calculi
CPT/HCPCS: 43239; 45385; 88305; J2250

== ENCOUNTER → 2022-01-16 | Outpatient (REF) | payer OTHER ==
[~2022-01-16] MED LIST changes: -NS 1,000 ML IV ONE
== END ==
LOC: M LAB REF 18:11
PROVIDERS: ATTEND Nurse Practitioner Family
DX: R19.7 Diarrhea, unspecified (principal)

== ENCOUNTER → 2022-01-19 | Outpatient (CLI) | payer OTHER ==
[2022-01-19 09:02] LABS: LIPASE 33 U/L (12-53)
[2022-01-19 09:03] LABS: AMYLASE 68 U/L (30-118)
== END ==
LOC: M LAB 07:57
PROVIDERS: ATTEND Nurse Practitioner Family
DX: R19.7 Diarrhea, unspecified (principal)

== ENCOUNTER → 2022-02-26 | Outpatient (CLI) | payer OTHER ==
[~2022-02-26] MED LIST changes: +GASTROGRAFIN SOLUTION 30ML As Ordered ONE; +ISOVUE-370 76% 100ML VIAL As Ordered ONE
== END ==
LOC: M RAD 12:00
PROVIDERS: ATTEND Nurse Practitioner Family
DX: K57.31 Diverticulosis of large intestine without perforation or abscess with bleeding (principal)

== ENCOUNTER → 2022-02-26 | Outpatient (CLI) | payer OTHER ==
[~2022-02-26] MED LIST changes: -GASTROGRAFIN SOLUTION 30ML As Ordered ONE; -ISOVUE-370 76% 100ML VIAL As Ordered ONE
== END ==
LOC: M RAD 11:57
PROVIDERS: ATTEND Family Medicine
DX: M54.50 Low back pain, unspecified (principal)

== ENCOUNTER → 2023-04-21 | Outpatient (CLI) | payer MEDICAID ==
[~2023-04-21] MED LIST changes: -CHLO25CA PO; +CHLO25CA10 PO
== END ==
LOC: M OUTALCOH 07:43
PROVIDERS: ATTEND Psychiatry & Neurology Psychiatry
DX: F10.20 Alcohol dependence, uncomplicated (principal)

== ENCOUNTER 2023-04-29 07:17 | Outpatient (RCR) | payer MEDICAID | END 2023-05-09 | LOC: M OUTALCOH 07:17 | PROVIDERS: ATTEND Psychiatry & Neurology Psychiatry | DX: F10.20 Alcohol dependence, uncomplicated (principal) ==

== ENCOUNTER → 2023-05-15 | Outpatient (CLI) | payer OTHER ==
[2023-05-15 10:28] LABS: BASO % 0.5 % (0.0-1.0); EOS # 0.1 10^3/uL (0.0-0.5); EOS % 1.8 % (0.0-3.0); HEMATOCRIT 47.1 % (42.0-52.0); HEMOGLOBIN 15.4 g/dl (13.5-17.5); LYMPH # 1.9 10^3/uL (1.5-5.0); LYMPH % 24.2 % (24.0-44.0); MEAN CORPUSCULAR HEMOGLOBIN 30.4 pg (27.0-33.0); MEAN CORPUSCULAR HGB CONC 32.7 g/dl (32.0-36.5); MEAN CORPUSCULAR VOLUME 93.1 fl (80.0-96.0); MONO # 0.8 10^3/uL (0.0-0.8); MONO % 9.8 % (2.0-8.0); NEUTROPHILS % 62.9 % (36.0-66.0); PLATELET COUNT, AUTOMATED 211 10^3/uL (150-450); RED BLOOD COUNT 5.06 10^6/uL (4.30-6.10)
[2023-05-15 10:55] LABS: ALBUMIN 3.6 G/DL (3.2-5.2); ALKALINE PHOSPHATASE 77 U/L (46-116); ALT/SGPT 40 U/L (7.0-40); AST/SGOT 28 U/L (<34); BILIRUBIN,TOTAL 0.4 MG/DL (0.3-1.2); BLOOD UREA NITROGEN 14 MG/DL (9-23); CALCIUM LEVEL 8.9 MG/DL (8.5-10.1); CARBON DIOXIDE LEVEL 28 MMOL/L (20-31); CHLORIDE LEVEL 106 MMOL/L (98-107); CREATININE FOR GFR 0.66 MG/DL (0.70-1.30); GLOMERULAR FILTRATION RATE > 60.0 (>56); GLUCOSE, FASTING 118 MG/DL (60-100); POTASSIUM SERUM 4.5 MMOL/L (3.5-5.1); SODIUM LEVEL 140 MMOL/L (136-145); TOTAL PROTEIN 6.5 G/DL (5.7-8.2)
== END ==
LOC: M LAB 08:35
PROVIDERS: ATTEND Nurse Practitioner Family
DX: R21 Rash and other nonspecific skin eruption (principal)

== ENCOUNTER 2023-05-27 08:00 | Outpatient (RCR) | payer MEDICAID | END 2023-06-08 | LOC: M OUTALCOH 08:00 | PROVIDERS: ATTEND Psychiatry & Neurology Psychiatry | DX: F10.20 Alcohol dependence, uncomplicated (principal) | CPT/HCPCS: G0397 ×2 ==

== ENCOUNTER 2023-06-12 10:34 | Inpatient (IN) | payer MEDICAID, OTHER ==
[2023-06-12] VITALS (32 sets, daily range): BP systolic 110–202; BP diastolic 55–123; TEMP 98.4–99.2; O2SAT 90–98
[~2023-06-12] VITALS: Ht 172.7 cm; Wt 125.7 kg
[~2023-06-12 10:34] MED LIST changes: +DOXY-323; +DOXY-323 PO; -DOXY-443; -DOXY-443 PO; +FOLIC ACID 1 MG in NS 50 ML IV SCH
[2023-06-12] MEDS: LORazepam 2 MG/ML 1ML VIAL IV STA (11:30)
[2023-06-12] MEDS: NS 1,000 ML IV ONE ×2 (11:39→13:03)
[2023-06-12 11:50] LABS: BASO % 0.3 % (0.0-1.0); EOS % 0.2 % (0.0-3.0); HEMATOCRIT 45.7 % (42.0-52.0); HEMOGLOBIN 15.4 g/dl (13.5-17.5); LYMPH # 1.3 10^3/uL (1.5-5.0); LYMPH % 10.4 % (24.0-44.0); MEAN CORPUSCULAR HEMOGLOBIN 30.4 pg (27.0-33.0); MEAN CORPUSCULAR HGB CONC 33.7 g/dl (32.0-36.5); MEAN CORPUSCULAR VOLUME 90.1 fl (80.0-96.0); MONO # 1.3 10^3/uL (0.0-0.8); MONO % 10.3 % (2.0-8.0); NEUTROPHILS % 78.2 % (36.0-66.0); PLATELET COUNT, AUTOMATED 170 10^3/uL (150-450); RED BLOOD COUNT 5.07 10^6/uL (4.30-6.10); WHITE BLOOD COUNT 12.8 10^3/uL (4.0-10.0)
[2023-06-12] MEDS: LORazepam 2 MG/ML 1ML VIAL IV ONE (11:57)
[2023-06-12 12:02] LABS: INR 1.06; PROTHROMBIN TIME 13.5 SECONDS (12.5-14.5)
[2023-06-12 12:16] LABS: ETHYL ALCOHOL (ETHANOL) 0.014 % (0.000-0.010)
[2023-06-12 12:18] LABS: ALBUMIN 3.5 G/DL (3.2-5.2); ALKALINE PHOSPHATASE 79 U/L (46-116); ALT/SGPT 40 U/L (7.0-40); AST/SGOT 30 U/L (<34); BILIRUBIN,DIRECT 0.3 MG/DL (<0.4); BLOOD UREA NITROGEN 7 MG/DL (9-23); CALCIUM LEVEL 8.3 MG/DL (8.5-10.1); CARBON DIOXIDE LEVEL 28 MMOL/L (20-31); CHLORIDE LEVEL 98 MMOL/L (98-107); CREATININE FOR GFR 0.55 MG/DL (0.70-1.30); GLOMERULAR FILTRATION RATE > 60.0 (>56); GLUCOSE, FASTING 134 MG/DL (60-100); SODIUM LEVEL 136 MMOL/L (136-145); TOTAL PROTEIN 6.8 G/DL (5.7-8.2)
[2023-06-12] MEDS: LORazepam 2 MG/ML 1ML VIAL IV PRN ×2 (12:25→17:40)
[2023-06-12] MEDS: THIAMINE 100 MG TAB PO ONE (13:04)
[2023-06-12] MEDS: FOLIC ACID 1MG TAB PO ONE (13:04)
[2023-06-12] MEDS ORDERED: dexmedeTOMidine 200 MCG in IV 1 EA IV SCH (13:55)
[2023-06-12] MEDS ORDERED: MINO50CA3 PO (14:10)
[2023-06-12] MEDS ORDERED: HOME MED LIST COMPLETE! XX SCH (14:15)
[2023-06-12] MEDS ORDERED: LORazepam 2 MG TAB PO PRN (15:30)
[2023-06-12] MEDS: PANTOPRAZOLE 40MG VIAL IV SCH (15:36)
[2023-06-12] MEDS: dexmedeTOMidine 200 MCG in IV 1 EA IV SCH (15:38)
[2023-06-12] MEDS: MULTIVITAMINS/MINERALS THERAP 1 TAB PO SCH (16:11)
[2023-06-12] MEDS: PHENobarbital 65MG/ML 1ML VIAL IV ONE (17:04)
[2023-06-12] MEDS: NS 1,000 ML IV SCH (17:10)
[2023-06-12] MEDS: niCARdipine IV 40 MG in IV 1 EA IV SCH (17:25)
[2023-06-12 17:46] LABS: LIPASE 25 U/L (12-53)
[2023-06-12 17:47] LABS: CK-MB VALUE MASS 2.1 NG/ML (<3.6)
[2023-06-12 17:49] LABS: ALKALINE PHOSPHATASE 70 U/L (46-116); ALT/SGPT 34 U/L (7.0-40); AST/SGOT 24 U/L (<34); BILIRUBIN,TOTAL 1.4 MG/DL (0.3-1.2); BLOOD UREA NITROGEN 7 MG/DL (9-23); CALCIUM LEVEL 7.9 MG/DL (8.5-10.1); CARBON DIOXIDE LEVEL 31 MMOL/L (20-31); CHLORIDE LEVEL 104 MMOL/L (98-107); CPK CREATINE PHOSPHOKINASE 136 U/L (46-171); CREATININE FOR GFR 0.54 MG/DL (0.70-1.30); GLOMERULAR FILTRATION RATE > 60.0 (>56); GLUCOSE, FASTING 137 MG/DL (60-100); MAGNESIUM LEVEL 1.7 MG/DL (1.8-2.4); MB/CK RELATIVE INDEX 1.54 (< OR =4); PHOSPHORUS LEVEL 2.3 MG/DL (2.5-4.9); POTASSIUM SERUM 4.2 MMOL/L (3.5-5.1); SODIUM LEVEL 139 MMOL/L (136-145); TOTAL PROTEIN 6.4 G/DL (5.7-8.2)
[2023-06-12 18:27] LABS: AMPHETAMINES LEVEL URINE NEGATIVE (NEGATIVE); BENZODIAZEPINES URINE NEGATIVE (NEGATIVE); CANNABINOIDS URINE NEGATIVE (NEGATIVE); COCAINE METABOLITE URINE NEGATIVE (NEGATIVE); METHADONE URINE NEGATIVE (NEGATIVE); OPIATES URINE NEGATIVE (NEGATIVE); PHENCYCLIDINE URINE NEGATIVE (NEGATIVE)
[2023-06-12 18:29] LABS: BARBITURATES URINE POSITIVE (NEGATIVE)
[2023-06-12] MEDS ORDERED: LORazepam 2 MG/ML 1ML VIAL IV PRN (19:30)
[2023-06-12] MEDS: MAG SULF 1GM/100ML (MAG RUN) 1 GM in IV 1 EA IV ONE (20:00)
[2023-06-12] MEDS: ENOXAPARIN 40MG/0.4ML SYRINGE (J1650 PER 10MG) SC SCH (20:01)
[2023-06-13] VITALS (26 sets, daily range): BP systolic 107–157; BP diastolic 61–95; TEMP 97.6–99.1; O2SAT 90–98
[2023-06-13 04:20] LABS: BASO % 0.2 % (0.0-1.0); EOS # 0.1 10^3/uL (0.0-0.5); EOS % 0.8 % (0.0-3.0); HEMOGLOBIN 14.4 g/dl (13.5-17.5); LYMPH # 1.1 10^3/uL (1.5-5.0); LYMPH % 13.3 % (24.0-44.0); MEAN CORPUSCULAR HEMOGLOBIN 30.4 pg (27.0-33.0); MEAN CORPUSCULAR HGB CONC 32.7 g/dl (32.0-36.5); MONO # 0.8 10^3/uL (0.0-0.8); MONO % 9.2 % (2.0-8.0); NEUTROPHILS # 6.3 10^3/uL (1.5-8.5); NEUTROPHILS % 76.1 % (36.0-66.0); PLATELET COUNT, AUTOMATED 142 10^3/uL (150-450); RED BLOOD COUNT 4.73 10^6/uL (4.30-6.10); WHITE BLOOD COUNT 8.2 10^3/uL (4.0-10.0)
[2023-06-13 04:43] LABS: ETHYL ALCOHOL (ETHANOL) < 0.003 % (0.000-0.010)
[2023-06-13 04:46] LABS: ALBUMIN 2.6 G/DL (3.2-5.2); ALKALINE PHOSPHATASE 62 U/L (46-116); ALT/SGPT 30 U/L (7.0-40); AST/SGOT 23 U/L (<34); BILIRUBIN,TOTAL 1.4 MG/DL (0.3-1.2); BLOOD UREA NITROGEN 14 MG/DL (9-23); CALCIUM LEVEL 7.7 MG/DL (8.5-10.1); CARBON DIOXIDE LEVEL 31 MMOL/L (20-31); CHLORIDE LEVEL 105 MMOL/L (98-107); CREATININE FOR GFR 0.62 MG/DL (0.70-1.30); GLOMERULAR FILTRATION RATE > 60.0 (>56); GLUCOSE, FASTING 122 MG/DL (60-100); MAGNESIUM LEVEL 2.1 MG/DL (1.8-2.4); PHOSPHORUS LEVEL 2.2 MG/DL (2.5-4.9); POTASSIUM SERUM 4.7 MMOL/L (3.5-5.1); SODIUM LEVEL 140 MMOL/L (136-145); TOTAL PROTEIN 5.9 G/DL (5.7-8.2)
[2023-06-13 06:13] LABS: ABG BASE EXCESS 0.5 (-2.0-2.0); ABG HCO3 25.2 MMOL/L (22.0-26.0); ABG O2 SATURATION 99.5 % (95.0-99.0); ABG PARTIAL PRESSURE CO2 40.9 mmHg (35.0-45.0); ABG PARTIAL PRESSURE O2 203.9 mmHg (75.0-100.0); ABG TOTAL CO2 26.5 MMOL/L (22.0-29.0); ABG pH (ARTERIAL) 7.408 UNITS (7.350-7.450)
[2023-06-13] MEDS: NS 1,000 ML IV ONE ×2 (08:03→10:05)
[2023-06-13] MEDS: THIAMINE 200MG 2ML VIAL IV SCH (08:05)
[2023-06-13] MEDS: FOLIC ACID 1 MG in NS 50 ML IV SCH (09:18)
[2023-06-13] MEDS: ACETAMINOPHEN 500 MG TAB PO PRN (17:07)
[2023-06-13] MEDS: ADVAIR HFA 115/21MCG INHALER INH SCH (19:12)
[2023-06-14] VITALS (13 sets, daily range): BP systolic 162–198; BP diastolic 80–108; TEMP 96.8–99.1; O2SAT 89–96
[2023-06-14 05:55] LABS: BASO % 0.3 % (0.0-1.0); EOS # 0.1 10^3/uL (0.0-0.5); EOS % 1.7 % (0.0-3.0); HEMATOCRIT 44.6 % (42.0-52.0); HEMOGLOBIN 14.5 g/dl (13.5-17.5); LYMPH # 1.2 10^3/uL (1.5-5.0); LYMPH % 16.3 % (24.0-44.0); MEAN CORPUSCULAR HEMOGLOBIN 29.9 pg (27.0-33.0); MEAN CORPUSCULAR HGB CONC 32.5 g/dl (32.0-36.5); MONO # 0.6 10^3/uL (0.0-0.8); MONO % 8.2 % (2.0-8.0); NEUTROPHILS # 5.2 10^3/uL (1.5-8.5); NEUTROPHILS % 72.9 % (36.0-66.0); PLATELET COUNT, AUTOMATED 142 10^3/uL (150-450); RED BLOOD COUNT 4.85 10^6/uL (4.30-6.10); WHITE BLOOD COUNT 7.1 10^3/uL (4.0-10.0)
[2023-06-14 06:22] LABS: ALBUMIN 2.6 G/DL (3.2-5.2); ALKALINE PHOSPHATASE 58 U/L (46-116); ALT/SGPT 26 U/L (7.0-40); AST/SGOT 22 U/L (<34); BILIRUBIN,TOTAL 1.1 MG/DL (0.3-1.2); BLOOD UREA NITROGEN 13 MG/DL (9-23); CARBON DIOXIDE LEVEL 27 MMOL/L (20-31); CHLORIDE LEVEL 107 MMOL/L (98-107); CREATININE FOR GFR 0.58 MG/DL (0.70-1.30); GLOMERULAR FILTRATION RATE > 60.0 (>56); GLUCOSE, FASTING 98 MG/DL (60-100); MAGNESIUM LEVEL 1.8 MG/DL (1.8-2.4); POTASSIUM SERUM 4.1 MMOL/L (3.5-5.1); SODIUM LEVEL 141 MMOL/L (136-145); TOTAL PROTEIN 5.8 G/DL (5.7-8.2)
[2023-06-14] MEDS: THIAMINE 100 MG TAB PO SCH (08:13)
[2023-06-14] MEDS: SERTRALINE HCL 25 MG TABLET PO SCH (08:14)
[2023-06-14] MEDS: MINOCYCLINE 50 MG CAP PO SCH (08:14)
[2023-06-14] MEDS: FOLIC ACID 1MG TAB PO SCH (08:14)
[2023-06-14] MEDS: CAPTOpril 6.25 MG PER 1/2 TABLET PO SCH (08:27)
[2023-06-14] MEDS: **hydrALAZINE** 50 MG TAB PO ONE (09:57)
[2023-06-14] MEDS: SODIUM PHOSPHATE INJ 20 MMOL in D5W 250 ML IV ONE (09:57)
[2023-06-14] MEDS ORDERED: ISOVUE-370 76% 100ML VIAL As Ordered ONE (11:21)
[2023-06-14 13:32] LABS: ERYTHROCYTE SEDIMENTATION RATE 33 mm/hr (0-20)
[2023-06-14 14:28] LABS: RSV AMPLIFICATION NEGATIVE (NEGATIVE)
[2023-06-14 15:01] LABS: MRSA PCR SCREEN NOT DETECTED (NEGATIVE)
[2023-06-14] MEDS: CAPTOpril 12.5 MG TAB PO SCH (16:23)
[2023-06-14] MEDS: KETOROLAC 30 MG/ML 1ML VIAL IV ONE (18:13)
[2023-06-14] MEDS: **hydrALAZINE** 50 MG TAB PO SCH (21:19)
[2023-06-14] MEDS: DICLOFENAC EPOLAMINE 1.3% PATCH TOP SCH (21:20)
[2023-06-14] MEDS: GABAPENTIN 300 MG CAP PO SCH (21:20)
[2023-06-14] MEDS: ACETAMINOPHEN 500 MG TAB PO SCH (21:21)
[2023-06-14] MEDS: oxyCODONE 5MG TAB PO PRN (23:38)
[2023-06-15] VITALS (10 sets, daily range): BP systolic 154–202; BP diastolic 79–128; TEMP 96.8–98.2; O2SAT 92–95
[2023-06-15] MEDS ORDERED: KETOROLAC 30 MG/ML 1ML VIAL IV PRN
[2023-06-15] MEDS: KETOROLAC 30 MG/ML 1ML VIAL IV PRN (01:25)
[2023-06-15] MEDS: **hydrALAZINE** 50 MG TAB PO ONE (05:23)
[2023-06-15] MEDS: **hydrALAZINE** 50 MG TAB PO SCH (06:45)
[2023-06-15] MEDS: LIDOCAINE 5% (LIDODERM) PATCH TD SCH (09:24)
[2023-06-15] MEDS: LABETALOL 100MG/20ML VIAL IV STA ×2 (11:12→12:42)
[2023-06-15] MEDS: amLODIPine 5 MG TAB PO ONE (12:43)
[2023-06-16] MEDS: RAMELTEON 8 MG TAB (ROZEREM) PO ONE (01:04)
[2023-06-16 03:43] VITALS: BP 140/76; TEMP 98.3; O2SAT 95
[2023-06-16 07:35] VITALS: BP 170/106; TEMP 97.4; O2SAT 96
[2023-06-16 08:39] VITALS: BP 170/106
[2023-06-16] MEDS: amLODIPine 5 MG TAB PO SCH (08:39)
[2023-06-16 10:28] VITALS: BP 178/97
[2023-06-16 10:46] VITALS: BP 152/90
[2023-06-16] MEDS ORDERED: CAPT125TA PO (11:04)
[2023-06-16] MEDS ORDERED: AMLO1TAB24 PO (11:04)
[2023-06-16] MEDS ORDERED: HYDR100T PO (11:04)
[2023-06-16] MEDS ORDERED: THIA100TA PO (11:08)
[2023-06-16] MEDS ORDERED: SERT25TA21 PO (11:08)
[2023-06-16] MEDS ORDERED: GABA-282 PO (11:08)
[2023-06-16] MEDS ORDERED: FOLI1TAB11 PO (11:08)
== END 2023-06-16 12:45 | disposition home or self-care (01) | DRG 775 ==
LOC: M ED 10:34 → M ED INP 13:53 → M ICU 15:10 → M PCU 06-14 13:49
PROVIDERS: ADMIT Internal Medicine Critical Care Medicine; ATTEND Internal Medicine
DX: F10.231 Alcohol dependence with withdrawal delirium (principal); G31.2 Degeneration of nervous system due to alcohol; Z68.41 Body mass index [BMI] 40.0-44.9, adult; I10 Essential (primary) hypertension; J45.20 Mild intermittent asthma, uncomplicated; G47.33 Obstructive sleep apnea (adult) (pediatric); E66.9 Obesity, unspecified; K21.9 Gastro-esophageal reflux disease without esophagitis; L71.9 Rosacea, unspecified; I16.0 Hypertensive urgency; M54.9 Dorsalgia, unspecified; F32.A Depression, unspecified; Z79.899 Other long term (current) drug therapy

== ENCOUNTER 2023-07-02 07:52 | Outpatient (RCR) | payer MEDICAID ==
[~2023-07-02 07:52] MED LIST changes: +CAPT125TA PO; -FOLIC ACID 1 MG in NS 50 ML IV SCH; +GABA-282 PO; +HYDR100T PO; +MINO50CA3 PO; +SERT25TA21 PO
== END 2023-07-09 ==
LOC: M OUTALCOH 07:52
PROVIDERS: ATTEND Psychiatry & Neurology Psychiatry
DX: F10.20 Alcohol dependence, uncomplicated (principal)

== ENCOUNTER 2023-07-31 17:09 | Inpatient (IN) | payer MEDICAID, OTHER, SELFPAY ==
[~2023-07-31] VITALS: Ht 175.3 cm; Wt 121.2 kg
[~2023-07-31 17:09] MED LIST changes: +FLUO-365 PO; -FLUO20CA22 PO
[2023-07-31 17:41] LABS: BASO # 0.1 10^3/uL (0.0-0.2); BASO % 0.5 % (0.0-1.0); EOS % 0.2 % (0.0-3.0); HEMATOCRIT 46.5 % (42.0-52.0); HEMOGLOBIN 15.3 g/dl (13.5-17.5); LYMPH # 1.5 10^3/uL (1.5-5.0); LYMPH % 11.4 % (24.0-44.0); MEAN CORPUSCULAR HEMOGLOBIN 30.1 pg (27.0-33.0); MEAN CORPUSCULAR HGB CONC 32.9 g/dl (32.0-36.5); MEAN CORPUSCULAR VOLUME 91.4 fl (80.0-96.0); MONO # 1.2 10^3/uL (0.0-0.8); MONO % 9.7 % (2.0-8.0); NEUTROPHILS # 9.8 10^3/uL (1.5-8.5); NEUTROPHILS % 77.6 % (36.0-66.0); PLATELET COUNT, AUTOMATED 202 10^3/uL (150-450); RED BLOOD COUNT 5.09 10^6/uL (4.30-6.10); WHITE BLOOD COUNT 12.7 10^3/uL (4.0-10.0)
[2023-07-31 18:20] LABS: ABG BASE EXCESS 2.4 (-2.0-2.0); ABG HCO3 28.6 MMOL/L (22.0-26.0); ABG O2 SATURATION 98.4 % (95.0-99.0); ABG PARTIAL PRESSURE CO2 49.8 mmHg (35.0-45.0); ABG PARTIAL PRESSURE O2 116.8 mmHg (75.0-100.0); ABG STANDARD HCO3 26.7 MMOL/L. (22.0-26.0); ABG TOTAL CO2 30.1 MMOL/L (22.0-29.0); ABG pH (ARTERIAL) 7.377 UNITS (7.350-7.450)
[2023-07-31 18:41] LABS: ALKALINE PHOSPHATASE 78 U/L (46-116); ALT/SGPT 45 U/L (7.0-40); AST/SGOT 32 U/L (<34); BILIRUBIN,DIRECT 0.3 MG/DL (<0.4); BILIRUBIN,TOTAL 0.7 MG/DL (0.3-1.2); BLOOD UREA NITROGEN 7 MG/DL (9-23); CALCIUM LEVEL 8.1 MG/DL (8.5-10.1); CARBON DIOXIDE LEVEL 30 MMOL/L (20-31); CHLORIDE LEVEL 100 MMOL/L (98-107); CREATININE FOR GFR 0.46 MG/DL (0.70-1.30); GLOMERULAR FILTRATION RATE > 60.0 (>56); GLUCOSE, FASTING 126 MG/DL (60-100); POTASSIUM SERUM 4.5 MMOL/L (3.5-5.1); SODIUM LEVEL 137 MMOL/L (136-145); TOTAL PROTEIN 6.4 G/DL (5.7-8.2)
[2023-07-31] MEDS ORDERED: ISOVUE-370 76% 100ML VIAL As Ordered ONE (19:03)
[2023-07-31] MEDS: AZITHROMYCIN INJ 500 MG, VIAL MATE ADAPTER 1 EACH in D5W 250 ML IV ONE (20:50)
[2023-07-31] MEDS ORDERED: MINO100C80 PO (20:57)
[2023-07-31] MEDS ORDERED: CAPT125TA PO (20:57)
[2023-07-31] MEDS ORDERED: SERT50TA29 PO (20:57)
[2023-07-31] MEDS ORDERED: MOM 30ML SUSPENSION UDC PO PRN (21:00)
[2023-07-31] MEDS ORDERED: HOME MED LIST COMPLETE! XX SCH (21:00)
[2023-07-31] MEDS ORDERED: MAALOX 30 ML SUSP *UDC PO PRN (21:00)
[2023-07-31] MEDS: PIPERACILLIN/TAZOBACTAM SOD 4.5 GM in D5W MINI-BAG PLUS 50 ML IV ONE (23:05)
[2023-07-31] MEDS: NS 1,000 ML IV SCH (23:53)
[2023-07-31 23:55] VITALS: BP 153/72; TEMP 100.6; O2SAT 97
[2023-07-31 23:58] VITALS: BP 153/73
[2023-08-01] VITALS (27 sets, daily range): BP systolic 153–168; BP diastolic 77–95; TEMP 96.7–99.8; O2SAT 86–98
[2023-08-01] MEDS: LORazepam 2 MG TAB PO PRN (00:11)
[2023-08-01] MEDS: VANCOMYCIN HCL 1,000 MG, VIAL MATE ADAPTER 1 EACH in D5W 250 ML IV ONE ×2 (00:11→01:22)
[2023-08-01] MEDS: ACETAMINOPHEN TAB 650MG DOSE (2X325MG) PO PRN (00:12)
[2023-08-01 01:43] LABS: HEMATOCRIT 44.8 % (42.0-52.0)
[2023-08-01 02:15] LABS: CK-MB VALUE MASS 3.3 NG/ML (<3.6)
[2023-08-01 02:24] LABS: MB/CK RELATIVE INDEX 2.06 (< OR =4)
[2023-08-01] MEDS: CEFEPIME HCL 2 GM in D5W MINI-BAG PLUS 50 ML IV SCH (04:38)
[2023-08-01 06:43] LABS: BASO % 0.3 % (0.0-1.0); EOS % 0.3 % (0.0-3.0); HEMATOCRIT 47.7 % (42.0-52.0); HEMOGLOBIN 15.3 g/dl (13.5-17.5); LYMPH % 10.3 % (24.0-44.0); MEAN CORPUSCULAR HEMOGLOBIN 29.7 pg (27.0-33.0); MEAN CORPUSCULAR HGB CONC 32.1 g/dl (32.0-36.5); MEAN CORPUSCULAR VOLUME 92.6 fl (80.0-96.0); MONO % 10.3 % (2.0-8.0); NEUTROPHILS # 7.8 10^3/uL (1.5-8.5); NEUTROPHILS % 78.2 % (36.0-66.0); PLATELET COUNT, AUTOMATED 178 10^3/uL (150-450); RED BLOOD COUNT 5.15 10^6/uL (4.30-6.10); WHITE BLOOD COUNT 9.9 10^3/uL (4.0-10.0)
[2023-08-01 07:07] LABS: BLOOD UREA NITROGEN 9 MG/DL (9-23); CALCIUM LEVEL 8.1 MG/DL (8.5-10.1); CARBON DIOXIDE LEVEL 36 MMOL/L (20-31); CHLORIDE LEVEL 97 MMOL/L (98-107); CREATININE FOR GFR 0.48 MG/DL (0.70-1.30); GLOMERULAR FILTRATION RATE > 60.0 (>56); GLUCOSE, FASTING 123 MG/DL (60-100); POTASSIUM SERUM 4.4 MMOL/L (3.5-5.1); SODIUM LEVEL 136 MMOL/L (136-145)
[2023-08-01] MEDS ORDERED: ENOXAPARIN 40MG/0.4ML SYRINGE (J1650 PER 10MG) SC SCH (09:00)
[2023-08-01] MEDS: HEPARIN SOD (PORCINE) 5000UNITS/ML 1ML VIAL/SYRINGE SQ SCH (09:04)
[2023-08-01] MEDS: PANTOPRAZOLE 40MG VIAL IV SCH (09:04)
[2023-08-01] MEDS: FOLIC ACID 1MG TAB PO SCH (09:04)
[2023-08-01] MEDS: hydrALAZINE 20MG/ML 1ML VIAL IV PRN (09:04)
[2023-08-01] MEDS: THIAMINE 100 MG TAB PO SCH (09:05)
[2023-08-01] MEDS: MULTIVITAMINS/MINERALS THERAP 1 TAB PO SCH (09:05)
[2023-08-01] MEDS: VANCOMYCIN HCL 1,000 MG, VIAL MATE ADAPTER 1 EACH in NS 250 ML IV SCH (09:05)
[2023-08-01] MEDS ORDERED: IPRATROPIUM 0.5MG/ALBUTEROL 2.5MG INH SOL UD 3ML (DUONEB) NEB PRN (10:10)
[2023-08-01] MEDS: SERTRALINE HCL 50 MG TAB PO SCH (10:29)
[2023-08-01] MEDS: OXAZEPAM 15MG CAP PO SCH (10:29)
[2023-08-01] MEDS: methylPREDNISolone 40MG 1ML VIAL IV SCH (10:34)
[2023-08-01 12:21] LABS: ABG BASE EXCESS 0.4 (-2.0-2.0); ABG HCO3 27.6 MMOL/L (22.0-26.0); ABG O2 SATURATION 94.7 % (95.0-99.0); ABG PARTIAL PRESSURE CO2 54.7 mmHg (35.0-45.0); ABG PARTIAL PRESSURE O2 74.1 mmHg (75.0-100.0); ABG STANDARD HCO3 24.7 MMOL/L. (22.0-26.0); ABG TOTAL CO2 29.3 MMOL/L (22.0-29.0); ABG pH (ARTERIAL) 7.321 UNITS (7.350-7.450)
[2023-08-01] MEDS ORDERED: flumazeniL 0.5MG/5ML VIAL IV STA (13:08)
[2023-08-01 20:44] LABS: ABG BASE EXCESS 5.5 (-2.0-2.0); ABG HCO3 32.3 MMOL/L (22.0-26.0); ABG O2 SATURATION 97.4 % (95.0-99.0); ABG PARTIAL PRESSURE CO2 55.4 mmHg (35.0-45.0); ABG PARTIAL PRESSURE O2 90.9 mmHg (75.0-100.0); ABG STANDARD HCO3 29.4 MMOL/L. (22.0-26.0); ABG pH (ARTERIAL) 7.384 UNITS (7.350-7.450)
[2023-08-01] MEDS ORDERED: AZITHROMYCIN 250MG TABLET PO SCH (21:00)
[2023-08-01] MEDS: AZITHROMYCIN INJ 500 MG, VIAL MATE ADAPTER 1 EACH in NS 250 ML IV SCH (21:42)
[2023-08-01] MEDS ORDERED: guaiFENesin SYRUP 200MG 10ML UDC PO PRN (22:35)
[2023-08-01] MEDS: IPRATROPIUM 0.5MG/ALBUTEROL 2.5MG INH SOL UD 3ML (DUONEB) NEB SCH (23:12)
[2023-08-01] MEDS: guaiFENesin SYRUP 200MG 10ML UDC PO SCH (23:46)
[2023-08-02] VITALS (35 sets, daily range): BP systolic 142–182; BP diastolic 70–106; TEMP 96.9–98.9; O2SAT 79–97
[2023-08-02 05:15] LABS: VENOUS BASE EXCESS 7.4 (-2.0-2.0); VENOUS HCO3 34.2 MMOL/L (23.0-27.0); VENOUS O2 SATURATION 97.3 % (60.0-80.0); VENOUS PARTIAL PRESSURE CO2 55.4 mmHg (38.0-50.0); VENOUS PARTIAL PRESSURE O2 89.5 mmHg (30.0-50.0); VENOUS PH 7.408 UNITS (7.330-7.430); VENOUS STANDARD HCO3 31.2 MMOL/L; VENOUS TOTAL CO2 35.9 MMOL/L (24.0-28.0)
[2023-08-02 05:23] LABS: HEMATOCRIT 48.4 % (42.0-52.0); HEMOGLOBIN 15.6 g/dl (13.5-17.5); LYMPH # 0.5 10^3/uL (1.5-5.0); MEAN CORPUSCULAR HGB CONC 32.2 g/dl (32.0-36.5); MEAN CORPUSCULAR VOLUME 93.1 fl (80.0-96.0); MONO # 0.3 10^3/uL (0.0-0.8); MONO % 4.1 % (2.0-8.0); NEUTROPHILS # 6.2 10^3/uL (1.5-8.5); NEUTROPHILS % 88.2 % (36.0-66.0); PLATELET COUNT, AUTOMATED 195 10^3/uL (150-450)
[2023-08-02 05:49] LABS: BLOOD UREA NITROGEN 16 MG/DL (9-23); CALCIUM LEVEL 8.6 MG/DL (8.5-10.1); CARBON DIOXIDE LEVEL 34 MMOL/L (20-31); CHLORIDE LEVEL 103 MMOL/L (98-107); CREATININE FOR GFR 0.45 MG/DL (0.70-1.30); GLOMERULAR FILTRATION RATE > 60.0 (>56); GLUCOSE, FASTING 146 MG/DL (60-100); MAGNESIUM LEVEL 2.2 MG/DL (1.8-2.4); POTASSIUM SERUM 4.8 MMOL/L (3.5-5.1); SODIUM LEVEL 140 MMOL/L (136-145)
[2023-08-02] MEDS ORDERED: GLUCAGON INJ 1MG VIAL SC PRN (07:05)
[2023-08-02] MEDS ORDERED: GLUCOSE 4 GM CHEW PO PRN (07:05)
[2023-08-02] MEDS ORDERED: DEXTROSE 50% 50ML SYRINGE IV PRN (07:05)
[2023-08-02] MEDS ORDERED: guaiFENesin SYRUP 200MG 10ML UDC PO PRN (07:10)
[2023-08-02 08:04] LABS: HEMOGLOBIN A1c 5.9 % (4.0-6.0)
[2023-08-02] MEDS: INSULIN LISPRO (NovoLOG) PER UNIT SC SCH ×2 (08:19→20:09)
[2023-08-02] MEDS ORDERED: CALCIUM CARBONATE 500 MG CHEW U/D PO PRN (12:00)
[2023-08-02] MEDS: LABETALOL 100MG/20ML VIAL IV PRN (16:29)
[2023-08-02] MEDS: methylPREDNISolone 40MG 1ML VIAL IV SCH (20:52)
[2023-08-03] VITALS (10 sets, daily range): BP systolic 142–162; BP diastolic 72–95; TEMP 97.5; O2SAT 92–96
[2023-08-03 06:06] LABS: HEMATOCRIT 45.8 % (42.0-52.0); LYMPH # 0.7 10^3/uL (1.5-5.0); LYMPH % 8.7 % (24.0-44.0); MEAN CORPUSCULAR HGB CONC 32.8 g/dl (32.0-36.5); MEAN CORPUSCULAR VOLUME 91.6 fl (80.0-96.0); MONO # 0.5 10^3/uL (0.0-0.8); MONO % 6.3 % (2.0-8.0); NEUTROPHILS # 6.4 10^3/uL (1.5-8.5); NEUTROPHILS % 84.7 % (36.0-66.0); PLATELET COUNT, AUTOMATED 220 10^3/uL (150-450); WHITE BLOOD COUNT 7.6 10^3/uL (4.0-10.0)
[2023-08-03 06:36] LABS: BLOOD UREA NITROGEN 19 MG/DL (9-23); CALCIUM LEVEL 8.4 MG/DL (8.5-10.1); CARBON DIOXIDE LEVEL 29 MMOL/L (20-31); CHLORIDE LEVEL 103 MMOL/L (98-107); GLOMERULAR FILTRATION RATE > 60.0 (>56); GLUCOSE, FASTING 183 MG/DL (60-100); MAGNESIUM LEVEL 1.9 MG/DL (1.8-2.4); POTASSIUM SERUM 4.2 MMOL/L (3.5-5.1); SODIUM LEVEL 137 MMOL/L (136-145)
[2023-08-03] MEDS: LevoFLOXacin 750 MG TABLET PO SCH (10:35)
[2023-08-03] MEDS ORDERED: PROT1TAB2 PO (11:32)
[2023-08-03] MEDS ORDERED: LISI20TA33 PO (11:32)
[2023-08-03] MEDS ORDERED: PRED20TA PO (11:32)
[2023-08-03] MEDS ORDERED: LEVO1TAB40 PO (11:32)
[2023-08-03] MEDS ORDERED: ADV100INH INH (11:32)
[2023-08-03] MEDS ORDERED: CARA1TAB6 PO (11:32)
[2023-08-03] MEDS ORDERED: AMLO10TA PO (11:32)
[2023-08-03] MEDS ORDERED: VENTAER INH (11:32)
== END 2023-08-03 13:58 | disposition home or self-care (01) | DRG 720 ==
LOC: M ED 17:09 → M ED INP 22:05 → M PCU 23:45
PROVIDERS: ADMIT Family Medicine; ATTEND Family Medicine
DX: A41.9 Sepsis, unspecified organism (principal); J96.01 Acute respiratory failure with hypoxia; J15.69 Pneumonia due to other Gram-negative bacteria; J45.21 Mild intermittent asthma with (acute) exacerbation; Z68.41 Body mass index [BMI] 40.0-44.9, adult; J96.02 Acute respiratory failure with hypercapnia; G47.33 Obstructive sleep apnea (adult) (pediatric); I10 Essential (primary) hypertension; R73.03 Prediabetes; R73.9 Hyperglycemia, unspecified; T38.0X5A Adverse effect of glucocorticoids and synthetic analogues, initial encounter; I16.9 Hypertensive crisis, unspecified; R07.89 Other chest pain; F10.230 Alcohol dependence with withdrawal, uncomplicated; E66.9 Obesity, unspecified; F32.A Depression, unspecified; K21.9 Gastro-esophageal reflux disease without esophagitis; L71.9 Rosacea, unspecified; Z79.899 Other long term (current) drug therapy; Z11.52 Encounter for screening for COVID-19

== ENCOUNTER → 2023-10-03 | Outpatient (CLI) | payer OTHER ==
[~2023-10-03] MED LIST changes: +ADV100INH INH; +AMLO10TA PO; +CARA1TAB6 PO; +LEVO1TAB40 PO; +MINO100C80 PO; +PROT1TAB2 PO; +SERT50TA29 PO; +VENTAER INH
== END ==
LOC: M LAB 14:54 → M RAD 14:54
PROVIDERS: ATTEND Physician Assistant
DX: R91.8 Other nonspecific abnormal finding of lung field (principal)

== ENCOUNTER → 2023-10-28 | Outpatient (CLI) | payer OTHER | LOC: M PLARAD 15:20 | PROVIDERS: ATTEND Student in an Organized Health Care Education/Training Program | DX: M25.562 Pain in left knee (principal) ==

== ENCOUNTER → 2023-11-10 | Outpatient (CLI) | payer OTHER ==
[~2023-11-10] MED LIST changes: -DOXY-323; -DOXY-323 PO; +DOXY-441; +DOXY-441 PO; +GABA-1172 PO; -GABA-282 PO
== END ==
LOC: M PLAIMG 08:10
PROVIDERS: ATTEND Physician Assistant
DX: R91.8 Other nonspecific abnormal finding of lung field (principal)

== ENCOUNTER → 2024-03-16 | Outpatient (CLI) | payer OTHER ==
[~2024-03-16] MED LIST changes: -ADV100INH INH; +ADVA1AER8 INH; +MINO-13 PO; -MINO100C80 PO
== END ==
LOC: M RAD 07:42
PROVIDERS: ATTEND Family Medicine
DX: D17.5 Benign lipomatous neoplasm of intra-abdominal organs (principal)

== ENCOUNTER → 2024-04-16 | Outpatient (CLI) | payer OTHER ==
[2024-04-16 15:22] LABS: BASO # 0.1 10^3/uL (0.0-0.2); BASO % 0.5 % (0.0-1.0); EOS # 0.1 10^3/uL (0.0-0.5); EOS % 0.8 % (0.0-3.0); HEMATOCRIT 52.5 % (42.0-52.0); HEMOGLOBIN 17.1 g/dl (13.5-17.5); LYMPH # 2.4 10^3/uL (1.5-5.0); LYMPH % 17.9 % (24.0-44.0); MEAN CORPUSCULAR HEMOGLOBIN 29.4 pg (27.0-33.0); MEAN CORPUSCULAR HGB CONC 32.6 g/dl (32.0-36.5); MEAN CORPUSCULAR VOLUME 90.2 fl (80.0-96.0); MONO % 7.9 % (2.0-8.0); NEUTROPHILS # 9.6 10^3/uL (1.5-8.5); NEUTROPHILS % 72.4 % (36.0-66.0); PLATELET COUNT, AUTOMATED 179 10^3/uL (150-450); RED BLOOD COUNT 5.82 10^6/uL (4.30-6.10); WHITE BLOOD COUNT 13.2 10^3/uL (4.0-10.0)
[2024-04-16 15:56] LABS: ALBUMIN 3.1 G/DL (3.2-5.2); ALKALINE PHOSPHATASE 106 U/L (40-129); ALT/SGPT 52 U/L (7.0-40); AST/SGOT 54 U/L (<34); BILIRUBIN,TOTAL 1.6 MG/DL (0.3-1.2); BLOOD UREA NITROGEN 24 MG/DL (9-23); CALCIUM LEVEL 9.6 MG/DL (8.3-10.6); CARBON DIOXIDE LEVEL 30 MMOL/L (20-31); CHLORIDE LEVEL 102 MMOL/L (98-107); CREATININE FOR GFR 0.76 MG/DL (0.70-1.30); GLOMERULAR FILTRATION RATE > 60.0 (>49); GLUCOSE, FASTING 119 MG/DL (74-106); POTASSIUM SERUM 4.2 MMOL/L (3.5-5.1); SODIUM LEVEL 139 MMOL/L (136-145); TOTAL PROTEIN 6.7 G/DL (5.7-8.2)
== END ==
LOC: M EKG 14:36
PROVIDERS: ATTEND Family Medicine
DX: Z01.818 Encounter for other preprocedural examination (principal)

== ENCOUNTER 2024-04-26 09:44 | Day surgery (SDC) | payer OTHER ==
[~2024-04-26] VITALS: Ht 172.7 cm; Wt 124.6 kg
[~2024-04-26 09:44] MED LIST changes: +ceFAZolin SOD 2 GM IV ONCE IV ONE
[2024-04-26] MEDS ORDERED: LIDOCAINE 1% SDV 5ML VIAL SC PRN (10:30)
[2024-04-26] MEDS ORDERED: LR 1,000 ML IV SCH ×2 (10:30→15:50)
[2024-04-26] MEDS: METOPROLOL 5 MG/5 ML VIAL IV PRN (11:26)
[2024-04-26 11:52] VITALS: BP 152/81
[2024-04-26] MEDS ORDERED: INDOCYANINE GREEN 25MG VIAL (IC-GREEN) As Ordered ONE (12:44)
[2024-04-26] MEDS ORDERED: MIDAZOLAM INJ 2MG/2ML VIAL As Ordered ONE (12:47)
[2024-04-26] MEDS ORDERED: fentaNYL 250 MCG/5 ML INJECTION As Ordered ONE (12:47)
[2024-04-26] MEDS ORDERED: LIDOCAINE 2% 100MG/5ML SDV (FOR ANES.) As Ordered ONE (12:48)
[2024-04-26] MEDS ORDERED: KETOROLAC 30 MG/ML 1ML VIAL As Ordered ONE (12:48)
[2024-04-26] MEDS ORDERED: ACETAMINOPHEN 1000MG/100ML IV BAG As Ordered ONE (12:48)
[2024-04-26] MEDS ORDERED: SUGAMMADEX SODIUM 500 MG/5 ML VIAL (BRIDION) As Ordered ONE (12:48)
[2024-04-26] MEDS ORDERED: propofoL 200 MG/20 ML VIAL As Ordered ONE (12:48)
[2024-04-26] MEDS ORDERED: ONDANSETRON 4MG 2ML VIAL As Ordered ONE (12:48)
[2024-04-26] MEDS ORDERED: ROCURONIUM BROMIDE 50MG/5ML VIAL As Ordered ONE (12:48)
[2024-04-26] MEDS: INDOCYANINE GREEN 25MG VIAL (IC-GREEN) IV ONE (13:55)
[2024-04-26] MEDS: HEPARIN SOD (PORCINE) 5000UNITS/ML 1ML VIAL/SYRINGE SQ ONE (14:18)
[2024-04-26] MEDS: ceFAZolin SOD 3 GM in DEXTROSE 5% (D5W) MINI-BAG PLU 1... IV ONE (14:20)
[2024-04-26] MEDS ORDERED: PHENYLephrine 500MCG 5ML (100MCG/ML) SYRINGE As Ordered ONE (14:49)
[2024-04-26] MEDS ORDERED: fentaNYL 100 MCG/2 ML INJECTION IV PRN (15:50)
[2024-04-26] MEDS: ONDANSETRON 4MG 2ML VIAL IV PRN (16:14)
[2024-04-26] MEDS: HYDROMORPHONE HCL 0.5 MG/ 0.5 ML SYRINGE IV PRN (16:14)
[2024-04-26] MEDS: oxyCODONE 5MG TAB PO PRN (16:20)
[2024-04-26 17:55] VITALS: BP 150/90; TEMP 97.3; O2SAT 91
== END 2024-04-26 18:24 | disposition home or self-care (01) ==
LOC: M SDC 09:44
PROVIDERS: ATTEND Surgery
DX: K80.10 Calculus of gallbladder with chronic cholecystitis without obstruction (principal); G47.30 Sleep apnea, unspecified; E66.01 Morbid (severe) obesity due to excess calories; Z68.41 Body mass index [BMI] 40.0-44.9, adult; Z79.899 Other long term (current) drug therapy
CPT/HCPCS: 47563; 88304; J0131; J0665; J0690; J1100; J1171; J1885; J2250; J2371; J2405; J3010; Q9968; S2900

== ENCOUNTER → 2024-09-12 | Outpatient (CLI) | payer OTHER ==
[~2024-09-12] MED LIST changes: +ADVA1AER10 INH; +ALBU2.5V10 INH; +ALCOPAD25 TOP; -AMBI12.52 PO; +AMIT10TA11 PO; -AMIT10TA7 PO; +AMLO-751 PO; -AMLO10TA PO; +BACI1CAP PO; +BLOOKIT21 XX; +GLUC1TES2 XX; +LANC30MI XX; +LASI20TA3 PO; +LIPI20TA PO; +LISI30TA4 PO; +METF-838 PO; +METR-265 PO; +NORV5TAB PO; +PERC5TAB12 PO; +PRED20TA; +SEMA0.257 SQ; +TERB250T91 PO; +TRIA80CR15 TOP; +ZOLP12.561 PO; -ceFAZolin SOD 2 GM IV ONCE IV ONE
== END ==
LOC: M PLAIMG 07:11
PROVIDERS: ATTEND Physician Assistant
DX: R91.8 Other nonspecific abnormal finding of lung field (principal)

== ENCOUNTER 2024-09-26 07:09 | Day surgery (SDC) | payer OTHER ==
[~2024-09-26] VITALS: Ht 172.7 cm; Wt 125.6 kg
[2024-09-26] MEDS ORDERED: LIDOCAINE 2% 100 MG/5 ML SDV (FOR ANES.) As Ordered ONE (08:04)
[2024-09-26 08:50] VITALS: TEMP 98
[2024-09-26] MEDS ORDERED: ONDANSETRON 4MG 2ML VIAL As Ordered ONE (09:00)
[2024-09-26 09:50] VITALS: BP 153/79; O2SAT 98
[2024-09-26] MEDS: KETOROLAC 30 MG/ML 1 ML VIAL IV ONE (10:00)
== END 2024-09-26 11:20 | disposition home or self-care (01) ==
LOC: M OPP 07:09
PROVIDERS: ATTEND Surgery
DX: K63.5 Polyp of colon (principal); K64.8 Other hemorrhoids; K57.32 Diverticulitis of large intestine without perforation or abscess without bleeding; G47.30 Sleep apnea, unspecified; Z79.85 Long-term (current) use of injectable non-insulin antidiabetic drugs; Z79.899 Other long term (current) drug therapy; Z86.73 Personal history of transient ischemic attack (TIA), and cerebral infarction without residual deficits
CPT/HCPCS: 45385; 74176; 88305; J1885; J2405